=== PATIENT | female | born 1940 | race Caucasian/White ===

== ENCOUNTER → 2023-06-23 10:42 | Outpatient (REF) | payer OTHER, SELFPAY | LOC: PAVMRI 10:42 | PROVIDERS: ATTENDING PHYSICIAN Internal Medicine; FAMILY PHYSICIAN Internal Medicine | DX: D49.0 Neoplasm of unspecified behavior of digestive system (principal) | CPT/HCPCS: 74183; A9575 ==

== ENCOUNTER → 2023-08-12 11:29 | Outpatient (REF) | payer OTHER, SELFPAY ==
[2023-08-12 12:56] LABS: ALT (SGPT) 25 U/L (0-35); AST (SGOT) 24 U/L (14-36); Albumin 4.4 g/dl (3.5-5.0); Alkaline Phosphatase 55 U/L (38-126); Blood Urea Nitrogen 25 mg/dl (7-17); Calcium 9.8 mg/dl (8.4-10.2); Carbon Dioxide 39 mmol/L (22-30); Chloride 97 mmol/L (98-107); Glucose 88 mg/dl (70-99); Phosphorus 4.1 mg/dl (2.5-4.5); Potassium 3.8 mmol/L (3.5-5.1); Sodium 143 mmol/L (135-145); Total Bilirubin 0.6 mg/dl (0.2-1.3); Total Protein 7.3 g/dl (6.3-8.2); eGFR 55.21
[2023-08-12 13:12] LABS: Vitamin D, 25-OH*** 47.6 ng/mL (30-80)
== END ==
LOC: REG 11:29
PROVIDERS: ATTENDING PHYSICIAN Internal Medicine Rheumatology; FAMILY PHYSICIAN Internal Medicine
DX: M81.0 Age-related osteoporosis without current pathological fracture (principal); I10 Essential (primary) hypertension
CPT/HCPCS: 36415; 80053; 82306; 84100

== ENCOUNTER → 2023-09-10 10:23 | Outpatient (REF) | payer OTHER, SELFPAY | LOC: RAD 10:23 | PROVIDERS: ATTENDING PHYSICIAN Internal Medicine Rheumatology; FAMILY PHYSICIAN Internal Medicine | DX: M81.0 Age-related osteoporosis without current pathological fracture (principal) | CPT/HCPCS: 77080 ==

== ENCOUNTER → 2023-09-15 15:30 | Outpatient (REF) | payer OTHER, SELFPAY | LOC: RAD 15:30 | PROVIDERS: ATTENDING PHYSICIAN Nurse Practitioner Adult Health; FAMILY PHYSICIAN Internal Medicine | DX: N95.0 Postmenopausal bleeding (principal) | CPT/HCPCS: 76830; 76856 ==

== ENCOUNTER → 2024-03-03 14:35 | Outpatient (REF) | payer OTHER, SELFPAY ==
[2024-03-03 15:47] LABS: % Basophils 0.4 % (0-2); % Eosinophils 0.4 % (0-6); % Immature Granulocytes 0.4 % (0-0.5); % Lymphocytes 8.4 % (20.5-51.1); % Monocytes 5.5 % (1.7-9.3); % Neutrophils 84.9 % (42.2-75.2); Absolute Eosinophils 0.1 10^3/uL (0-0.7); Absolute Immature Granulocytes 0.1 10^3/uL (0-0.05); Absolute Lymphocytes 0.9 10^3/uL (1.2-3.4); Absolute Monocytes 0.6 10^3/uL (0.1-0.6); Absolute Neutrophils 9.5 10^3/uL (1.4-6.5); Hematocrit 41.7 % (37.0-47.0); Hemoglobin 13.6 g/dL (12.0-16.0); Mean Corp Hgb Conc. 32.6 g/dL (33.0-37.0); Mean Corpuscular Hgb 34.7 pg (27.0-31.0); Mean Corpuscular Volume 106.4 fL (81.0-99.0); Mean Platelet Volume 10.5 fL (7.4-10.4); Nucleated Red Blood Cells % 0 %; Platelet Count 259 10^3/uL (130-400); Red Blood Cell Count 3.92 10^6/uL (4.20-5.40); Red Cell Dist. Width 13.7 % (11.5-14.5); White Blood Cell Count 11.2 10^3/uL (4.8-10.8)
[2024-03-03 16:13] LABS: ALT (SGPT) 26 U/L (0-35); AST (SGOT) 27 U/L (14-36); Albumin 4.6 g/dl (3.5-5.0); Alkaline Phosphatase 57 U/L (38-126); Blood Urea Nitrogen 23 mg/dl (7-17); Calcium 10.1 mg/dl (8.4-10.2); Carbon Dioxide 38 mmol/L (22-30); Chloride 94 mmol/L (98-107); Glucose 103 mg/dl (70-99); Potassium 4.3 mmol/L (3.5-5.1); Sodium 140 mmol/L (135-145); Total Bilirubin 0.5 mg/dl (0.2-1.3); Total Protein 7.2 g/dl (6.3-8.2); eGFR > 60.00
[2024-03-03 16:28] LABS: Erythrocyte Sed Rate 15 mm/hour (0-20)
[2024-03-03 16:43] LABS: TSH 1.62 uIU/ml (0.47-4.68); TSH Reflex To Free T4 1.62 uIU/ml (0.47-4.68)
== END ==
LOC: REG 14:35
PROVIDERS: ATTENDING PHYSICIAN Internal Medicine
DX: K52.839 Microscopic colitis, unspecified (principal); R19.7 Diarrhea, unspecified
CPT/HCPCS: 36415; 80053; 84443; 85025; 85652; 86140

== ENCOUNTER → 2024-03-04 13:44 | Outpatient (REF) | payer OTHER, SELFPAY | LOC: WDC 13:44 | PROVIDERS: ATTENDING PHYSICIAN Internal Medicine | DX: Z12.31 Encounter for screening mammogram for malignant neoplasm of breast (principal) | CPT/HCPCS: 77063; 77067 ==

== ENCOUNTER → 2024-05-09 12:36 | Outpatient (REF) | payer OTHER, SELFPAY | LOC: RAD 12:36 | PROVIDERS: ATTENDING PHYSICIAN Surgery Vascular Surgery; FAMILY PHYSICIAN Internal Medicine | DX: I73.9 Peripheral vascular disease, unspecified (principal) | CPT/HCPCS: 93922; 93925 ==

== ENCOUNTER → 2024-05-24 15:16 | Outpatient (REF) | payer OTHER, SELFPAY ==
[2024-05-24 23:19] LABS: IgA 149 mg/dl (70-400)
[2024-05-27 06:53] LABS: tTG IgA Antibody 1.06 FLU (0.00-4.99)
== END ==
LOC: REG 15:16
PROVIDERS: ATTENDING PHYSICIAN Nurse Practitioner; FAMILY PHYSICIAN Internal Medicine
DX: R19.7 Diarrhea, unspecified (principal); K90.0 Celiac disease
CPT/HCPCS: 36415; 82653; 82784; 83516; 83993; 86231

== ENCOUNTER → 2024-06-02 14:30 | Outpatient (REF) | payer OTHER, SELFPAY | LOC: RAD 14:30 | PROVIDERS: ATTENDING PHYSICIAN Nurse Practitioner; FAMILY PHYSICIAN Internal Medicine | DX: R10.13 Epigastric pain (principal) | CPT/HCPCS: 76700 ==

== ENCOUNTER → 2024-06-20 15:03 | Outpatient (REF) | payer OTHER, SELFPAY ==
[2024-06-20 15:59] LABS: Albumin 4.1 g/dl (3.5-5.0); Blood Urea Nitrogen 27 mg/dl (7-17); Calcium 9.5 mg/dl (8.4-10.2); Carbon Dioxide 34 mmol/L (22-30); Chloride 97 mmol/L (98-107); Glucose 98 mg/dl (70-99); Phosphorus 4.3 mg/dl (2.5-4.5); Potassium 4.6 mmol/L (3.5-5.1); Sodium 139 mmol/L (135-145)
[2024-06-20 16:08] LABS: NT-proBNP 1610 pg/ml
== END ==
LOC: REG 15:03
PROVIDERS: ATTENDING PHYSICIAN Internal Medicine
DX: I50.9 Heart failure, unspecified (principal); R60.9 Edema, unspecified
CPT/HCPCS: 36415; 80069; 83880

== ENCOUNTER 2024-07-09 09:03 | Inpatient (IN) | payer OTHER, SELFPAY ==
[2024-07-08] VITALS (13 sets, daily range): BP systolic 101–159; BP diastolic 52–89; BMI 21.0; BMI 20.9
[2024-07-08] MEDS: CARDIZEM 10 MG IV (07:29)
--- NOTE | 2024-07-08 07:32 | ED.GENMED ---
History of Present Illness
General
Chief Complaint: Heart Rate Problem
Source: patient
Exam Limitations: none
Time Seen by Provider: 07/08/24 07:23
History of Present Illness
History of Present Illness:
See MDM
Past History
Past History
ED Past Medical History: Arrthythmia (Atrial fibrillation), CHF, HTN, Psychiatric (Anxiety) and Other (Collagenous colitis, constipation, osteopenia)
ED Past Surgical History: Cardiac (Cardioversion), Gynecological (D and C), Orthopedic (Bilateral carpal tunnel) and Tonsilectomy
Social History
Tobacco: Non-smoker
Alcohol: None
Personal:
Living: with family
Family History
Family History: Other (Noncontributory)
Phy Exam
Physical Exam
Physical Exam:
See MDM
Course
Orders/Labs/Results
Orders:
Orders
07/08/24
Electrocardiogram (*1) Stat
Reason for Study: Chest Pain
Comment: DONE NO ORDER ENTERED
07/08/24 07:06
EKG [Electrocardiogram (*1)] Urgent
Reason for Study: Atrial Fibrillation
07/08/24 07:07
EKG- Treatment ONCE
07/08/24 07:27
Diltiazem HCl [Cardizem] 10 mg IV NOW STA
07/08/24 07:28
Diltiazem HCl [Cardizem] 25 mg .ROUTE .STK-MED ONE
07/08/24 07:33
Complete Blood Count/With Diff Urgent
07/08/24 07:55
Comprehensive Metabolic Panel Urgent
Comprehensive Metabolic Panel Urgent
Magnesium Urgent
07/08/24 09:28
Potassium Chloride [KCl] 40 meq 0.9% Sodium Chloride 250 ml [Nss] 250 ml IV NOW
Abnormal Lab Results
07/08/24 07/08/24
07:33 07:55
MCV 101.3 H fL
(81.0-99.0)
MCH 33.9 H pg
(27.0-31.0)
Absolute Monos (auto) 0.8 H 10^3/uL
(0.1-0.6)
Lymphocytes % 19.1 L %
(20.5-51.1)
Potassium 2.4 L* mmol/L
(3.5-5.1)
Chloride 90 L mmol/L
(98-107)
Carbon Dioxide 38 H mmol/L
(22-30)
BUN 39 H mg/dl
(7-17)
Creatinine 1.3 H mg/dL
(0.6-1.0)
Glucose 134 H mg/dl
(70-99)
Calcium 10.7 H mg/dl
(8.4-10.2)
07/08/24 07:33
07/08/24 07:55
Vital Signs
Initial and Last Documented VS:
Initial Vital Signs
Pulse Resp BP
77 10 125/76
07/08/24 07:06 07/08/24 07:06 07/08/24 07:06
Last Documented Vital Signs
Pulse Resp BP Pulse Ox
60 10 125/76 93
07/08/24 08:00 07/08/24 07:06 07/08/24 07:10 07/08/24 08:00
MDM/Problems Addressed
Differential Diagnosis Includes:
HPI and MDM Narrative:
84-year-old female presenting for evaluation of intermittent palpitations. She does have a history of A-fib. Patient states that she intermittently goes into rapid A-fib. She states it has not been this uncontrolled in quite a while. She does
follow with cardiology, Dr. Barron. Patient states she started a new medicine 2 days ago that starts with an M but cannot remember what it is. She is already on metoprolol.
I was called to bedside because patient goes in between rapid A-fib.
Went into the room, patient is sitting in bed comfortably. She is sinus on the monitor but intermittently goes into A-fib. Will give dose of Cardizem and obtain basic blood work
Physical exam
General: Well appearing and non-toxic
HEENT: protecting airway
Neck: appears supple
CV: No evidence of cyanosis. Regular rate and rhythm
Resp: No accessory muscle use
Abd: Non-distended
Extremities: No deformities
Neuro: alert
Psych: Normal affect
Skin: Intact
Problems Addressed including Acute and Chronic Conditions affecting care:
1. Intermittent A-fib
Acuity: acute
Prognosis: stable
Details: Will give dose of Cardizem and continue to monitor
2. Hypokalemia
Acuity: acute
Prognosis: unstable
Details: Will replete with KCl rider
Updates
Symptoms improving with Cardizem but patient still complaining of weakness and fatigue. Given the hypokalemia despite being on potassium supplementation, will start IV potassium and admit
Differential Diagnosis (but not limited to): A-fib, electrolyte abnormality
Testing considered: Troponin but she denies chest pain
Drug therapy (if applicable): OTC meds, please see d/c instruction regarding Rx drugs
Amount and/or Complexity of Data Reviewed
Clinical info obtained from: Patient
External data reviewed: N/A
Labs I independently reviewed (but not limited to): Hypokalemia
Radiology: N/A
Pulse Ox: not hypoxic
EKG independently reviewed: Sinus rhythm, normal axis, no STEMI
Instrumental Music Teacher: Sinus rhythm
Critical Care: The high probability of a clinically significant, sudden or life threatening deterioration of the cardiovascular system(s) required my full and direct attention, intervention and personal management. The aggregate critical care time
was 33 minutes. This time is in addition to time spent performing reported procedures but includes the following:
[x] Data Review and interpretation
[x] Patient assessment and monitoring of vital signs
[x] Documentation
[x] Medication orders and management
Risk of Complication:
Social Determinants of health: Good social support
Discussed with other providers: Hospitalist
Escalation of Care includes Admit/Obs: After being observed in the Emergency Department, pt stable for discharge.
Occasional wrong word or 'sound a like' substitutions may have occurred due to the inherent limitations of voice recognition software. Read the chart carefully and recognize, using context, where substitutions have occurred.
*Critical Care Note
Total Time (30-74mins, 75-104mins- exclusive of procedures): 33 min
ED Attending Note
-
Portions of this chart may have been created with voice recognition software.� Occasional wrong word or��sound alike� substitutions may have occurred due to the inherent limitations of voice recognition software.
Discharge Plan
Departure
Patient Disposition: Admit
Date of Disposition: 07/08/24
Time of Disposition: 09:34
Admit to: Telemetry
Presentation/result/management discussed w/ accepting MD/DO: Hospitalist
Discharge Problem:
Acute hypokalemia, Intermittent atrial fibrillation
Prescriptions:
No Action
mometasone 0.1 % cream
1 applic topical DAILYPRN PRN (Reason: on ear for fungus itching)
multivitamin with folic acid [Tab-A-Bertin] 1 TABLET tablet
1 tab PO DAILY
budesonide 3 MG capsule,delayed,extend.release
6 mg PO DAILY
calcium carbonate-vitamin D3 [Calcium 500 + D] 500 mg-5 mcg (200 unit) Tablet
1 tab PO BID Qty: 0
Eliquis 2.5 MG tablet
2.5 mg PO BID
docusate sodium 100 mg capsule
100 mg PO BID PRN (Reason: constipation)
furosemide 80 mg Tablet
80 mg PO BID
acetaminophen [Tylenol] 325 mg Tablet
650 mg PO BID
alprazolam 0.25 mg Tablet
0.25 mg PO HS PRN (Reason: sleep)
Patient Comments:
01/26/2023, patient filled this medication on 01/06/2023 for 30 tablets according to PDMP.
potassium chloride 10 mEq Capsule, Extended Release
20 meq PO BID
diphenoxylate-atropine [Lomotil] 2.5-0.025 mg Tablet
1 tab PO DAILY PRN (Reason: diarrhea)
Citrucel 500 mg Tablet
1,000 mg PO QPM
ipratropium bromide 42 mcg (0.06 %) [place],Non-Aerosol
2 spray INTRANASAL DAILY
Refresh Classic (PF) 1.4-0.6 % Dropperette
1 drp BOTH EYES BID
Prolia 60 mg/mL Syringe
60 mg SC [id number]
Patient Comments:
01/26/2023, patient states next dose is scheduled for 03/04/2023.
dofetilide 125 mcg Capsule
125 mcg PO Q12 Qty: 60 1RF
metoprolol succinate 50 mg Tablet Extended Release 24 Hr
50 mg PO BID 30 Days Qty: 60 0RF
cefdinir 300 mg capsule
300 mg PO Q12H Qty: 10 0RF
Referrals:
Fabio Hawkins MD [Family Provider] -
Interventions
Interventions:
*Risk Screen - Suicide Last Done: 07/08/24 07:14
*General Assessment Last Done: 07/08/24 07:14
*Neglect/Abuse Screening Last Done: 07/08/24 07:20
*ED- Fall Risk Assessment Last Done: 07/08/24 07:14
*ED COVID-19 Vaccine History Last Done: 07/08/24 07:14
ED- Cardiac Assessment Last Done: 07/08/24 07:25
Discharge Date and Time
Print Language: THAI
[2024-07-08 07:42] LABS: % Basophils 0.7 % (0-2); % Immature Granulocytes 0.2 % (0-0.5); % Lymphocytes 19.1 % (20.5-51.1); % Monocytes 9.2 % (1.7-9.3); % Neutrophils 69.8 % (42.2-75.2); Absolute Basophils 0.1 10^3/uL (0-0.2); Absolute Eosinophils 0.1 10^3/uL (0-0.7); Absolute Lymphocytes 1.6 10^3/uL (1.2-3.4); Absolute Monocytes 0.8 10^3/uL (0.1-0.6); Absolute Neutrophils 5.8 10^3/uL (1.4-6.5); Hematocrit 45.7 % (37.0-47.0); Hemoglobin 15.3 g/dL (12.0-16.0); Mean Corp Hgb Conc. 33.5 g/dL (33.0-37.0); Mean Corpuscular Hgb 33.9 pg (27.0-31.0); Mean Corpuscular Volume 101.3 fL (81.0-99.0); Mean Platelet Volume 10.3 fL (7.4-10.4); Nucleated Red Blood Cells % 0 %; Platelet Count 258 10^3/uL (130-400); Red Blood Cell Count 4.51 10^6/uL (4.20-5.40); Red Cell Dist. Width 12.9 % (11.5-14.5); White Blood Cell Count 8.2 10^3/uL (4.8-10.8)
[2024-07-08 08:50] LABS: ALT (SGPT) 19 U/L (0-35); AST (SGOT) 23 U/L (14-36); Albumin 4.6 g/dl (3.5-5.0); Alkaline Phosphatase 45 U/L (38-126); Blood Urea Nitrogen 39 mg/dl (7-17); Calcium 10.7 mg/dl (8.4-10.2); Carbon Dioxide 38 mmol/L (22-30); Chloride 90 mmol/L (98-107); Estimated Creatinine Clearance 25 ml/min; Glucose 134 mg/dl (70-99); Magnesium 1.8 mg/dl (1.6-2.3); Potassium 2.4 mmol/L (3.5-5.1); Sodium 139 mmol/L (135-145); Total Bilirubin 0.9 mg/dl (0.2-1.3); Total Protein 7.4 g/dl (6.3-8.2); eGFR 40.05
--- NOTE | 2024-07-08 10:40 | HPS.HSE ---
Family Physician
-
Family Physician: Fabio Hawkins
Chief Complaint
-
Feeling tired and fatigue
History of Present Illness
Patient is a pleasant 84 years old with history of paroxysmal A-fib, congestive heart failure, hypertension, osteoporosis who came to the ER today after being not feeling well for the last couple days.
Patient was having bilateral lower extremity edema and increased weight, normally she takes Lasix 80 mg twice daily at home, called her front of house manager and was prescribed additional metolazone, she had metolazone for 2 days and lower extremity edema
improved.
After that patient started feeling unwell and fatigued, denies any chest pain or shortness of breath, no abdominal pain, no nausea, no vomiting, no diarrhea or constipation.
Came to the ER found to have potassium level of 2.4 and patient was in A-fib, received Cardizem 10 mg IV and currently in sinus rhythm with rate controlled.
Patient currently have no symptoms and her symptoms upon presentation improved resolved.
Patient was kept overnight to replace potassium repeat lab in a.m.
Medical History
Past Medical History
Past Medical History: Reports Arrhythmia, CHF, HTN, Psychiatric and Other ( (Anxiety) (Collagenous colitis, constipation, osteopenia))
Past Surgical History: Reports Cardiac and Gynocological
Additional Past Surgical History:
Cardiac (Cardioversion), Gynecological (D and C), Orthopedic (Bilateral carpal tunnel) and Tonsilectomy
Social History
Tobacco: Non-smoker
Alcohol: None
Drug: None
Personal:
Living: With Family
Family History
Family History: Not pertinent
Allergies / Home Medications
Allergies reflects when Allergies were last updated in [facility].
Home Medications with original date entered in [facility]
Allergy/Medication List:
Allergies
Allergy/AdvReac Type Severity Reaction Status Date / Time
digoxin Allergy Unknown toxicity...hospital Verified 01/31/22 01:13
overnight
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
disease
Sulfa (Sulfonamide Allergy Tongue Verified 01/31/22 01:13
Antibiotics) Swelling
SHELLEY Inhibitors AdvReac COUGH Verified 01/31/22 01:13
Lolvpbx-RJO-OgG Reductase AdvReac ACHY Verified 01/31/22 01:13
Inhibitor MUSCLES
[Iyuctyv-Ulu-Paa Reductase
Inhibitor]
Home Medications (not updated)
mometasone 0.1 % topical cream 1 applic topical DAILYPRN PRN on ear for fungus itching 12/12/18
multivitamin with folic acid 400 mcg tablet (Tab-A-Bertin) 1 tab PO DAILY Supplement 12/12/18
budesonide 3 mg capsule,delayed,extended release 6 mg PO DAILY Gastrointestinal issue 05/28/21
calcium 500 mg (as carbonate)-vitamin D3 5 mcg (200 unit) tablet (Calcium 500 + D) 1 tab PO BID Supplement ##0 09/09/21
apixaban 2.5 mg tablet (Eliquis) 2.5 mg PO BID Blood clot prevention/tx 10/02/21
docusate sodium 100 mg capsule 100 mg PO BID PRN constipation 10/08/21
furosemide 80 mg tablet 80 mg PO BID Fluid Retention/Swelling 01/08/22
acetaminophen 325 mg tablet (Tylenol) 650 mg PO BID pain 01/13/22
alprazolam 0.25 mg tablet 0.25 mg PO HS PRN sleep 01/26/23
denosumab 60 mg/mL subcutaneous syringe (Prolia) 60 mg SC [id number] osteoporosis 01/26/23
diphenoxylate-atropine 2.5 mg-0.025 mg tablet (Lomotil) 1 tab PO DAILY PRN diarrhea 01/26/23
ipratropium bromide 42 mcg (0.06 %) nasal spray 2 spray intranasal DAILY Allergies 01/26/23
methylcellulose (laxative) 500 mg tablet (Citrucel) 1,000 mg PO QPM Constipation 01/26/23
polyvinyl alcohol-povidone (PF) 1.4 %-0.6 % eye drops in a dropperette (Refresh Classic (PF)) 1 drp BOTH EYES BID dry eyes 01/26/23
potassium chloride 10 mEq capsule,extended release 20 meq PO BID Electrolyte Repletion 01/26/23
dofetilide 125 mcg capsule 125 mcg PO Q12 #60 caps 01/29/23
cefdinir 300 mg capsule 300 mg PO Q12H #10 caps 01/30/23
metoprolol succinate 50 mg tablet,extended release 24 hr 50 mg PO BID 30 days #60 tabs 01/30/23
Review of Systems
-
A 12 point ROS was completed and negative except as noted: Yes
Constitutional: Reports Fatigue; Denies Fever, Weight Gain, Weight Loss or Sleep Disturbance
EENT: Denies Tearing, Sore Throat, Mouth Pain, Mouth Swelling or Runny Nose
Respiratory: Denies Cough, Hemoptysis or Trouble Breathing
Cardiac: Denies Chest Pain, Diaphoresis, Palpitations or Syncope
Abdomen/GI: Denies Abdominal Pain, Nausea, Vomiting, Diarrhea, Constipated, Bloody Stools or Black Stools
: Denies Dysuria, Frequency, Flank Pain, Incontinence, Difficulty Voiding, Urgency, Bleeding or Dark Urine
Musculoskeletal: Reports Edema; Denies Joint Pain, Joint Swelling, Muscle Pain or Muscle Stiffness
Skin: Denies Itching or Rash
Neurological: Denies Dizzy, Headache, Weakness or Numbness
Endocrine: Denies Polyuria, Polydipsia or Temp Intolerance
Hematologic/Lymphatic: Denies Bleeding, Swollen Glands or Bruising
Psych: Reports Calm; Denies Depression, Anxiety or Panic Disorder
Physical Exam
Vital Signs
Vital Signs
Pulse Resp BP Pulse Ox
60 10 125/76 93
07/08/24 08:00 07/08/24 07:06 07/08/24 07:10 07/08/24 08:00
Physical Exam
General: Well Developed, Well Nourished, No Apparent Distress, Comfortable and Good Appetite; No Pain, Chills or Sweats
HEENT: NormoCephalic, Moist mucous membranes, Atraumatic, Good Dentition, PERRLA, Nose Appears Normal and Ears Appear Normal
Respiratory: Clear
Cardiac: S1/S2 and Regular Rhythm
Breast: Deferred by me
GI: Soft, Non Tender, Non Distended and Normal Bowel Sounds
Genito-urinary: Deferred by me
Musculoskeletal: No Clubbing, No Cyanosis, No Edema and Other (Bilateral lower extremity discoloration)
Skin: Warm; No Rash, Jaundice, Ulcers, Lesions or Decubitus Ulcers
Neuro: Awake, Alert, Oriented, AO x 3, No Motor Deficits, Nonfocal/grossly intact and Cranial Nerves Intact
Hematologic/Lymphatic: No Lymphadenopathy
Psych: Calm
Laboratory Results
-
07/08/24 07:33
07/08/24 07:55
Laboratory Results
Total Bilirubin 0.9 mg/dl (0.2-1.3) 07/08/24 07:55
Total Bilirubin Cancelled 07/08/24 07:55
AST 23 U/L (14-36) 07/08/24 07:55
AST Cancelled 07/08/24 07:55
ALT 19 U/L (0-35) 07/08/24 07:55
ALT Cancelled 07/08/24 07:55
Alkaline Phosphatase 45 U/L (38-126) 07/08/24 07:55
Alkaline Phosphatase Cancelled 07/08/24 07:55
Data Reviewed
-
Diagnostic Radiology: Report Reviewed by me
CT Scan: Report Reviewed by me
Medical Tests (Nuc Med, Echo, EKG etc): Report Reviewed by me
Lab Data: Labs Reviewed by me
Old Records: Reviewed
Impression/Plan
-
IMPRESSION:
Patient is a pleasant 84 years old with history of paroxysmal A-fib, congestive heart failure, hypertension, osteoporosis who came to the ER today after being not feeling well for the last couple days.
Patient was having bilateral lower extremity edema and increased weight, normally she takes Lasix 80 mg twice daily at home, called her front of house manager and was prescribed additional metolazone, she had metolazone for 2 days and lower extremity edema
improved.
In the ER she was found to be in A-fib which converted back to sinus rhythm after Cardizem 10 mg IV.
Also found to have potassium level of 2.4.
Assessment/plan:
Acute hypokalemia
Possible secondary to diuretic
Patient used to be on Lasix 80 mg twice daily at home.
In addition was prescribed metolazone for lower extremity
Lower extremity edema improved.
Replace potassium with IV.
Continue oral dose starting tomorrow
Monitor labs in a.m.
Paroxysmal A-fib.
Currently sinus rhythm.
Continue with metoprolol/Eliquis/dofetilide
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
Anxiety.
Continue Xanax.
PDMP verified
Chronic diastolic CHF.
No sign of acute exacerbation.
Patient had acute exacerbation prior to hospitalization and treated with additional diuretic.
Currently no lower extremity edema with clear lung exam.
Continue home dose of Lasix
CODE STATUS: Full code
DVT prophylaxis: Eliquis
Diet: Cardiac/gluten free.
Family communication: Discussed with at bedside.
Disposition: Potassium, repeat labs in a.m. possible discharge tomorrow.
Total time spent on today's encounter was 75 minutes which included time spent in counseling the patient/family regarding diagnosis and treatment plan as listed above, goals of care, and symptom management. Case was discussed with nursing staff,
specialists, and care coordinators/case management. All labs and imaging personally reviewed by me. Remainder the time spent in detailed review of previous records, lab data, imaging, and other medical provider documentation.
[2024-07-08] MEDS: KCL 270 MEQ IV (10:56)
[2024-07-08] MEDS: FLUSH (NSS) 1 FLUSH IV (10:56)
[2024-07-08] MEDS: TIKOSYN 125 MCG PO ×2 (12:31→20:03)
[2024-07-08] MEDS: ELIQUIS 2.5 MG PO ×2 (12:31→20:04)
[2024-07-08] MEDS: KCL 10 MEQ PO ×3 (12:31→21:31)
[2024-07-08] MEDS: ENTOCORT EC 6 MG PO (13:58)
--- NOTE | 2024-07-08 14:43 | PTCARENOTE ---
Pt was received from ED at 1215. pt ambulated to the room with supervision. Steady gait. VSS. IV KCL infusing on arrival, started in ED. Care plan reviewed with pt. Resting in bed comfortably.
[2024-07-08] MEDS: TYLENOL 650 MG PO (18:22)
[2024-07-08] MEDS: LASIX 80 MG PO (20:03)
[2024-07-08] MEDS: TOPROL XL 50 MG PO (20:04)
[2024-07-08 22:03] LABS: Urine Albumin Negative (Neg - Trace); Urine Bilirubin Negative (Negative); Urine Character Slightly Cloudy (Clear); Urine Color Yellow; Urine Glucose Negative (Negative); Urine Ketone Negative (Negative); Urine Leukocyte 3+ (Negative); Urine Nitrite Negative (Negative); Urine Occult Blood 2+ (Negative); Urine Urobilinogen Negative (Neg - 1+); Urine pH 6.5 (5.0-9.0)
[2024-07-08 22:14] LABS: Urine Bacteria Many (Negative); Urine Red Blood Cell 0-2 /HPF (0-2); Urine White Cell >100 /HPF (0-5)
[2024-07-08] MEDS: XANAX 0.25 MG PO (23:14)
[2024-07-09] VITALS (8 sets, daily range): BP systolic 105–200; BP diastolic 59–90; BMI 20.5
[2024-07-09] MEDS: APRESOLINE 5 MG IV (03:55)
[2024-07-09] MEDS: TYLENOL 650 MG PO ×3 (04:43→20:08)
[2024-07-09] MEDS: ZOFRAN 4 MG IV (07:16)
[2024-07-09 08:27] LABS: NT-proBNP 1430 pg/ml
[2024-07-09 08:31] LABS: Hematocrit 45.1 % (37.0-47.0); Hemoglobin 15.6 g/dL (12.0-16.0); Mean Corp Hgb Conc. 34.6 g/dL (33.0-37.0); Mean Corpuscular Hgb 35.1 pg (27.0-31.0); Mean Corpuscular Volume 101.6 fL (81.0-99.0); Mean Platelet Volume 10.7 fL (7.4-10.4); Platelet Count 265 10^3/uL (130-400); Red Blood Cell Count 4.44 10^6/uL (4.20-5.40); Red Cell Dist. Width 12.9 % (11.5-14.5); White Blood Cell Count 14.6 10^3/uL (4.8-10.8)
[2024-07-09 08:46] LABS: Blood Urea Nitrogen 40 mg/dl (7-17); Calcium 10.4 mg/dl (8.4-10.2); Carbon Dioxide 38 mmol/L (22-30); Chloride 86 mmol/L (98-107); Estimated Creatinine Clearance 29 ml/min; Glucose 122 mg/dl (70-99); Magnesium 1.7 mg/dl (1.6-2.3); Potassium 2.7 mmol/L (3.5-5.1); Sodium 139 mmol/L (135-145); eGFR 48.94
[2024-07-09] MEDS: ENTOCORT EC 6 MG PO (08:54)
[2024-07-09] MEDS: LASIX 80 MG PO ×2 (08:54→19:55)
[2024-07-09] MEDS: TIKOSYN 125 MCG PO ×2 (08:55→19:55)
[2024-07-09] MEDS: TOPROL XL 50 MG PO ×2 (08:55→19:55)
[2024-07-09] MEDS: ELIQUIS 2.5 MG PO ×2 (08:55→19:55)
[2024-07-09] MEDS: KCL 10 MEQ PO ×4 (08:55→21:14)
[2024-07-09] MEDS: KCL 270 MEQ IV (09:45)
[2024-07-09] MEDS: STERILE WATER FOR INJECTION 10 ML IV (11:04)
[2024-07-09] MEDS: ROCEPHIN 1000 MG IV (11:04)
--- NOTE | 2024-07-09 12:30 | W.PN.HOSP.TC ---
Today's Communication/Plan
-
Continue to replace potassium
started Rocephin, pending urine culture
Assessment / Plan
Assessment / Plan
Impression:
Patient is a pleasant 84 years old with history of paroxysmal A-fib, congestive heart failure, hypertension, osteoporosis who came to the ER today after being not feeling well for the last couple days.
Patient was having bilateral lower extremity edema and increased weight, normally she takes Lasix 80 mg twice daily at home, called her health diagnostics teacher and was prescribed additional metolazone, she had metolazone for 2 days and lower extremity edema
improved.
In the ER she was found to be in A-fib which converted back to sinus rhythm after Cardizem 10 mg IV.
Also found to have potassium level of 2.4.
Admitted to the hospital, replaced potassium, repeat potassium next morning 2.7.
Patient upgraded to inpatient.
Also noted to have UTI, started on Rocephin
Assessment/plan:
Acute hypokalemia
Possible secondary to diuretic
Patient used to be on Lasix 80 mg twice daily at home.
In addition was prescribed metolazone for lower extremity
Lower extremity edema improved.
Initial potassium level 2.4. Replaced potassium with IV.
Today potassium level is 2.7, will continue with IV replacement and addition of oral potassium as per home dose.
Continue potline monitor.
UTI
Start Rocephin.
Patient was having some dysuria.
Pending urine culture
Leukocytosis.
Possible secondary to UTI
Paroxysmal A-fib.
Currently sinus rhythm.
Continue with metoprolol/Eliquis/dofetilide
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
Anxiety.
Continue Xanax.
PDMP verified
Chronic diastolic CHF.
No sign of acute exacerbation.
Patient had acute exacerbation prior to hospitalization and treated with additional diuretic.
Currently no lower extremity edema with clear lung exam.
Continue home dose of Lasix
CODE STATUS: Full code
DVT prophylaxis: Eliquis
Diet: Cardiac/gluten free.
Family communication: Discussed with at bedside.
Disposition: Continue to replace potassium, started Rocephin, pending urine culture
Total time spent on today's encounter was 65 minutes which included time spent in counseling the patient/family regarding diagnosis and treatment plan as listed above, goals of care, and symptom management. Case was discussed with nursing staff,
specialists, and care coordinators/case management. All labs and imaging personally reviewed by me. Remainder the time spent in detailed review of previous records, lab data, imaging, and other medical provider documentation.
Anticipated Discharge: Within 24 hours
Subjective/Interval History
-
Date of Service: July 09, 2024
Patient seen and examined at bedside, blood pressure was elevated last night, currently improved.
Patient also was having nausea, treated with Zofran.
Denies any chest pain or shortness of breath, no abdominal pain.
Objective Data
-
Labs:
Laboratory Results
07/09/24
07:20
WBC 14.6 H
Hgb 15.6
Hct 45.1
Plt Count 265
Sodium 139
Potassium 2.7 L*
Chloride 86 L
Carbon Dioxide 38 H
BUN 40 H
Creatinine 1.1 H
Glucose 122 H
Calcium 10.4 H
Vital Signs:
Vital Signs
Temp Pulse Resp BP Pulse Ox
97.7 F 73 18 132/70 92
07/09/24 11:30 07/09/24 11:30 07/09/24 11:30 07/09/24 11:30 07/09/24 11:30
I&O
07/08/24 07/09/24 07/10/24
06:59 06:59 06:59
Intake Total 480 / 480
Output Total 50 / 50
Balance 430 / 430
Physical Exam
-
General: Well Developed, Well Nourished, No Apparent Distress and Comfortable
HEENT: Normocephalic, Atraumatic, Moist Mucous Membranes, No Ptosis, PERRLA and Nose Appears Normal
Respiratory: Clear to Auscultation and Non Labored Respirations
Cardiac: Regular Rhythm and S1/S2
Breast: Deferred by me
GI: Soft, Nontender, Nondistended and Normal Bowel Sounds
Genito-urinary: No Costovertebral Tender
Musculoskeletal: No Clubbing, No Cyanosis, No Edema and Other (Bilateral lower extremity discoloration)
Skin: Warm
Neuro: Awake, Alert, Oriented, AO x 3 and No Motor Deficits
Psych: Calm
Data Reviewed
-
Diagnostic Radiology: Image personally visualized and interpreted and Report Reviewed by me
CT Scan: Image personally visualized and interpreted and Report Reviewed by me
Ultrasound: Image personally visualized and interpreted and Report Reviewed by me
MRI: Image personally visualized and interpreted and Report Reviewed by me
Medical Tests (Nuc Med, Echo etc): Image personally visualized and interpreted and Report Reviewed by me
Labs: Labs Reviewed by me
Old Records: Reviewed
[2024-07-09] MEDS: COLACE 100 MG PO (14:46)
[2024-07-09] MEDS: TUMS CHEWABLE TABLET 200 MG PO ×2 (17:12→22:29)
[2024-07-09] MEDS: XANAX 0.25 MG PO (22:28)
[2024-07-10 03:32] VITALS: BP 149/87
[2024-07-10 06:00] VITALS: BMI 20.4
[2024-07-10 06:51] LABS: Hematocrit 42.8 % (37.0-47.0); Hemoglobin 14.4 g/dL (12.0-16.0); Mean Corp Hgb Conc. 33.6 g/dL (33.0-37.0); Mean Corpuscular Hgb 34.1 pg (27.0-31.0); Mean Corpuscular Volume 101.4 fL (81.0-99.0); Mean Platelet Volume 10.3 fL (7.4-10.4); Platelet Count 228 10^3/uL (130-400); Red Blood Cell Count 4.22 10^6/uL (4.20-5.40); Red Cell Dist. Width 12.9 % (11.5-14.5); White Blood Cell Count 9.6 10^3/uL (4.8-10.8)
[2024-07-10 07:10] LABS: Blood Urea Nitrogen 37 mg/dl (7-17); Calcium 10.4 mg/dl (8.4-10.2); Chloride 91 mmol/L (98-107); Estimated Creatinine Clearance 29 ml/min; Glucose 115 mg/dl (70-99); Magnesium 1.7 mg/dl (1.6-2.3); Potassium 3.2 mmol/L (3.5-5.1); Sodium 140 mmol/L (135-145); eGFR 48.94
--- NOTE | 2024-07-10 07:19 | W.PN.HOSP.TC ---
Today's Communication/Plan
-
Continue antibiotics
Significant hypokalemia continues -- ordered both IV and PO potassium
Continue to monitor on telemetry
Assessment / Plan
Assessment / Plan
Physical Exam
General: Well Developed, Well Nourished, No Apparent Distress and Comfortable
HEENT: Normocephalic, Atraumatic
Respiratory: Clear to Auscultation Bilaterally
Cardiac: Regular Rhythm and S1/S2
GI: Soft, Nontender, Nondistended and Normal Bowel Sounds
Musculoskeletal: No Cyanosis. No Edema and Other (Bilateral lower extremity discoloration)
Skin: Warm. Dry.
Neuro: Awake, Alert, Oriented, AO x 3 and No Motor Deficits
Psych: Calm
Impression:
Patient is a pleasant 84 years old with history of paroxysmal A-fib, congestive heart failure, hypertension, osteoporosis who came to the ER not feeling well for a couple of days.
Patient was having bilateral lower extremity edema and increased weight, normally she takes Lasix 80 mg twice daily at home, called her engraver tire mold and was prescribed additional metolazone, she had metolazone for 2 days and lower extremity edema
improved.
In the ER she was found to be in A-fib which converted back to sinus rhythm after Cardizem 10 mg IV.
Also found to have potassium level of 2.4.
Admitted to the hospital, replaced potassium, repeat potassium next morning 2.7.
Patient upgraded to inpatient.
Also noted to have UTI, started on Rocephin
Assessment/plan:
Acute hypokalemia
Possible secondary to diuretic
Patient used to be on Lasix 80 mg twice daily at home.
In addition was prescribed metolazone for lower extremity
Lower extremity edema improved.
Initial potassium level 2.4. Replaced potassium with IV and PO.
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
UTI
Continue Rocephin.
Patient was having some dysuria.
Pending urine culture -- so far growing E. coli, await sensitivities
Leukocytosis - RESOLVED
Possible secondary to UTI
Paroxysmal A-fib.
Currently sinus rhythm.
Continue with Metoprolol/Eliquis/Dofetilide
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
Anxiety.
Continue Xanax.
PDMP verified
Chronic diastolic CHF.
No sign of acute exacerbation.
Patient had acute exacerbation prior to hospitalization and treated with additional diuretic.
Currently no lower extremity edema with clear lung exam.
Continue home dose of Lasix
CODE STATUS: Full code
DVT prophylaxis: Eliquis
Diet: Cardiac/gluten free.
Disposition: Continue to replace potassium, continue Rocephin, pending urine culture
Anticipated Discharge: > 48 hours
Subjective/Interval History
-
Date of Service: July 10, 2024
Patient was seen and examined. She reported feeling okay, denied any chest pain/shortness of breath. Still is waiting to participate with physical therapy.
Objective Data
-
Labs:
Laboratory Results
07/10/24
06:28
WBC 9.6
Hgb 14.4
Hct 42.8
Plt Count 228
Sodium 140
Potassium 3.2 L
Chloride 91 L
Carbon Dioxide Pending
BUN 37 H
Creatinine 1.1 H
Glucose 115 H
Calcium 10.4 H
Vital Signs:
Vital Signs
Temp Pulse Resp BP Pulse Ox
97.4 F 66 16 149/87 92
07/10/24 03:32 07/10/24 03:32 07/10/24 03:32 07/10/24 03:32 07/10/24 03:32
I&O
07/09/24 07/10/24 07/11/24
06:59 06:59 06:59
Intake Total 480 / 480 480 / 480
Output Total 50 / 50 400 / 400
Balance 430 / 430 80 / 80
[2024-07-10 07:21] LABS: Carbon Dioxide 38 mmol/L (22-30)
[2024-07-10 07:25] VITALS: BP 123/62
[2024-07-10] MEDS: KCL 10 MEQ PO ×4 (09:09→22:36)
[2024-07-10] MEDS: TOPROL XL 50 MG PO ×2 (09:09→19:52)
[2024-07-10] MEDS: TIKOSYN 125 MCG PO ×2 (09:09→19:52)
[2024-07-10] MEDS: LASIX 80 MG PO ×2 (09:09→19:52)
[2024-07-10] MEDS: ELIQUIS 2.5 MG PO ×2 (09:09→19:52)
[2024-07-10] MEDS: KCL 20 MEQ PO (09:09)
[2024-07-10] MEDS: ENTOCORT EC 6 MG PO (09:10)
[2024-07-10] MEDS: ROCEPHIN 1000 MG IV (09:10)
[2024-07-10] MEDS: STERILE WATER FOR INJECTION 10 ML IV (09:11)
[2024-07-10 11:00] VITALS: BP 142/68
[2024-07-10 14:34] LABS: Blood Urea Nitrogen 39 mg/dl (7-17); Calcium 10.2 mg/dl (8.4-10.2); Chloride 88 mmol/L (98-107); Estimated Creatinine Clearance 29 ml/min; Glucose 141 mg/dl (70-99); Potassium 2.9 mmol/L (3.5-5.1); Sodium 136 mmol/L (135-145); eGFR 48.94
[2024-07-10 14:44] LABS: Carbon Dioxide 36 mmol/L (22-30)
[2024-07-10 15:09] VITALS: BP 140/71
[2024-07-10 19:00] VITALS: BP 143/82
[2024-07-10] MEDS: KCL 160 MEQ IV (19:52)
[2024-07-10] MEDS: KCL 40 MEQ PO (19:52)
[2024-07-10] MEDS: XANAX 0.25 MG PO (22:36)
[2024-07-10] MEDS: COLACE 100 MG PO (22:44)
[2024-07-11] VITALS (10 sets, daily range): BP systolic 129–172; BP diastolic 71–90; PULSE 71–76; O2SAT 95; BMI 20.7
[2024-07-11] MEDS: TUMS CHEWABLE TABLET 200 MG PO (03:27)
[2024-07-11 07:02] LABS: Hematocrit 45.5 % (37.0-47.0); Hemoglobin 15.6 g/dL (12.0-16.0); Mean Corp Hgb Conc. 34.3 g/dL (33.0-37.0); Mean Corpuscular Hgb 34.3 pg (27.0-31.0); Mean Platelet Volume 10.8 fL (7.4-10.4); Platelet Count 262 10^3/uL (130-400); Red Blood Cell Count 4.55 10^6/uL (4.20-5.40); Red Cell Dist. Width 12.8 % (11.5-14.5)
[2024-07-11 08:02] LABS: Blood Urea Nitrogen 42 mg/dl (7-17); Calcium 10.8 mg/dl (8.4-10.2); Carbon Dioxide 38 mmol/L (22-30); Chloride 91 mmol/L (98-107); Estimated Creatinine Clearance 32 ml/min; Glucose 131 mg/dl (70-99); Magnesium 1.4 mg/dl (1.6-2.3); Potassium 3.6 mmol/L (3.5-5.1); Sodium 138 mmol/L (135-145); eGFR 54.87
[2024-07-11] MEDS: LASIX 80 MG PO ×2 (09:15→20:55)
[2024-07-11] MEDS: KCL 40 MEQ PO (09:15)
[2024-07-11] MEDS: TIKOSYN 125 MCG PO ×2 (09:16→20:51)
[2024-07-11] MEDS: ROCEPHIN 1000 MG IV (09:16)
[2024-07-11] MEDS: ELIQUIS 2.5 MG PO ×2 (09:16→20:51)
[2024-07-11] MEDS: TOPROL XL 50 MG PO ×2 (09:16→20:51)
[2024-07-11] MEDS: KCL 10 MEQ PO ×4 (09:16→20:55)
[2024-07-11] MEDS: ENTOCORT EC 6 MG PO (09:16)
[2024-07-11] MEDS: MAGNESIUM SULFATE 50 IV (09:17)
[2024-07-11] MEDS: STERILE WATER FOR INJECTION 10 ML IV (09:17)
--- NOTE | 2024-07-11 14:37 | W.PN.HOSP.TC ---
Today's Communication/Plan
-
SNF placement
Continue antibiotics
Continue monitoring on telemetry given electrolyte imbalances and cardiac comorbidities
Assessment / Plan
Assessment / Plan
Physical Exam
General: Well Developed, Well Nourished, No Apparent Distress and Comfortable
HEENT: Normocephalic, Atraumatic
Respiratory: Clear to Auscultation Bilaterally
Cardiac: Regular Rhythm and S1/S2
GI: Soft, Nontender, Nondistended and Normal Bowel Sounds
Musculoskeletal: No Cyanosis. No Edema and Other (Bilateral lower extremity discoloration)
Skin: Warm. Dry.
Neuro: Awake, Alert, Oriented, AO x 3 and No Motor Deficits
Psych: Calm
Impression:
Patient is a pleasant 84 years old with history of paroxysmal A-fib, congestive heart failure, hypertension, osteoporosis who came to the ER not feeling well for a couple of days.
Patient was having bilateral lower extremity edema and increased weight, normally she takes Lasix 80 mg twice daily at home, called her post hole digger and was prescribed additional metolazone, she had metolazone for 2 days and lower extremity edema
improved.
In the ER she was found to be in A-fib which converted back to sinus rhythm after Cardizem 10 mg IV.
Also found to have potassium level of 2.4.
Admitted to the hospital, replaced potassium, repeat potassium next morning 2.7.
Patient upgraded to inpatient.
Also noted to have UTI, started on Rocephin
Assessment/plan:
Acute hypokalemia
Possible secondary to diuretic
Patient used to be on Lasix 80 mg twice daily at home.
In addition was recently prescribed Metolazone for lower extremity
Lower extremity edema improved.
Initial potassium level 2.4. Replaced potassium with IV and PO.
Continue hospital monitor.
E. Coli UTI
Transition Rocephin to Cefdinir
Patient was having some dysuria.
Leukocytosis - RESOLVED
Suspected secondary to UTI
Paroxysmal A-fib.
Currently sinus rhythm.
Continue with Metoprolol/Eliquis/Dofetilide
clinical research monitor.
Anxiety.
Continue Xanax.
PDMP verified
Chronic diastolic CHF.
No sign of acute exacerbation.
Patient had acute exacerbation prior to hospitalization and treated with additional diuretic.
Currently no lower extremity edema with clear lung exam.
Continue home dose of Lasix
CODE STATUS: Full code
DVT prophylaxis: Eliquis
Diet: Cardiac/gluten free.
Disposition: Continue to replace potassium, continue antibiotics
Anticipated Discharge: 24 - 48 hours
Subjective/Interval History
-
Date of Service: July 11, 2024
Patient was seen and examined. She reported feeling okay, denied any chest pain or SOB or dizziness.
Objective Data
-
Labs:
Laboratory Results
07/11/24
06:44
WBC 17.0 H
Hgb 15.6
Hct 45.5
Plt Count 262
Sodium 138
Potassium 3.6
Chloride 91 L
Carbon Dioxide 38 H
BUN 42 H
Creatinine 1.0
Glucose 131 H
Calcium 10.8 H
Vital Signs:
Vital Signs
Temp Pulse Resp BP Pulse Ox
98.2 F 72 18 133/72 95
07/11/24 11:00 07/11/24 11:00 07/11/24 11:00 07/11/24 11:00 07/11/24 11:00
I&O
07/10/24 07/11/24 07/12/24
06:59 06:59 06:59
Intake Total 480 / 480 700 / 700
Output Total 400 / 400 975 / 975
Balance 80 / 80 -275 / -275
[2024-07-11] MEDS: MIRALAX 17 GRAMS PO (15:16)
--- NOTE | 2024-07-11 17:23 | CM ---
Met with patient and her family to obtain information for assessment. Patient stated that she lives with her spouse who was at bedside in a one story single home with 4 steps to enter. Patient described herself as independent with all of her ADLs,
personal care, dressing and bathing. 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 She drives and can get to her appointments and does do the shopping. She reported that she has a cane, a raised toilet seat with rails, grab bars in her
shower and a commode.
Patient has a prescription plan and uses, [facility] in [place] for all of her medications.
Her PCP is, Fabio Hawkins.
Patient stated that she feels that she can return home. Spouse confirmed that he can support the scope of her needs. Daughter is supportive and lives close. She is agreeable to and would like .
Spoke with OT who stated that patient is safe to return home.
Plan: Case management will continue to follow and assist with discharge planning. Home with VN.
[2024-07-11] MEDS: XANAX 0.25 MG PO (22:49)
[2024-07-12 03:12] VITALS: BP 179/88
[2024-07-12 06:00] VITALS: BMI 20.6
[2024-07-12 07:14] LABS: Hematocrit 42.4 % (37.0-47.0); Hemoglobin 14.1 g/dL (12.0-16.0); Mean Corp Hgb Conc. 33.3 g/dL (33.0-37.0); Mean Corpuscular Hgb 33.7 pg (27.0-31.0); Mean Corpuscular Volume 101.4 fL (81.0-99.0); Mean Platelet Volume 10.6 fL (7.4-10.4); Platelet Count 219 10^3/uL (130-400); Red Blood Cell Count 4.18 10^6/uL (4.20-5.40); Red Cell Dist. Width 12.9 % (11.5-14.5); White Blood Cell Count 10.5 10^3/uL (4.8-10.8)
[2024-07-12 07:25] VITALS: BP 117/62
--- NOTE | 2024-07-12 07:48 | W.PN.HOSP.TC ---
Today's Communication/Plan
-
Increased Potassium
Supplement Magnesium
Placement Pending
Assessment / Plan
Assessment / Plan
Physical Exam
General: Well Developed, Well Nourished, No Apparent Distress and Comfortable
HEENT: Normocephalic, Atraumatic
Respiratory: Clear to Auscultation Bilaterally
Cardiac: Regular Rhythm and S1/S2
GI: Soft, Nontender, Nondistended and Normal Bowel Sounds
Musculoskeletal: No Cyanosis. No Edema and Other (Bilateral lower extremity discoloration)
Skin: Warm. Dry.
Neuro: Awake, Alert, Oriented, AO x 3 and No Motor Deficits
Psych: Calm
Impression:
Patient is a pleasant 84 years old with history of paroxysmal A-fib, congestive heart failure, hypertension, osteoporosis who came to the ER not feeling well for a couple of days.
Patient was having bilateral lower extremity edema and increased weight, normally she takes Lasix 80 mg twice daily at home, called her disabilities caregiver and was prescribed additional metolazone, she had metolazone for 2 days and lower extremity edema
improved.
In the ER she was found to be in A-fib which converted back to sinus rhythm after Cardizem 10 mg IV.
Also found to have potassium level of 2.4.
Admitted to the hospital, replaced potassium, repeat potassium next morning 2.7.
Patient upgraded to inpatient.
Also noted to have UTI, started on Rocephin
Assessment/plan:
Acute hypokalemia
Possible secondary to diuretic
Patient used to be on Lasix 80 mg twice daily at home.
In addition was recently prescribed Metolazone for lower extremity
Lower extremity edema improved.
Initial potassium level 2.4. Replaced potassium with IV and PO.
Increased scheduled potassium to 20 meq QID since patient's potassium keeps dropping
Continue belt splicer.
Hypomagnesemia
-Replaced
E. Coli UTI
Transitioned Rocephin to Cefdinir
Patient was having some dysuria.
Leukocytosis - RESOLVED
Suspected secondary to UTI
Paroxysmal A-fib.
Currently sinus rhythm.
Continue with Metoprolol/Eliquis/Dofetilide
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
Anxiety.
Continue Xanax.
PDMP verified
Chronic diastolic CHF.
No sign of acute exacerbation.
Patient had acute exacerbation prior to hospitalization and treated with additional diuretic.
Currently no lower extremity edema with clear lung exam.
Continue home dose of Lasix
CODE STATUS: Full code
DVT prophylaxis: Eliquis
Diet: Cardiac/gluten free.
Disposition: Continue to replace potassium, continue antibiotics
Anticipated Discharge: Within 24 hours
Subjective/Interval History
-
Date of Service: July 12, 2024
Patient was seen and examined. She was able to ambulate in the past 24 hours without any symptoms, she denied any dizziness, chest pain or shortness of breath.
Objective Data
-
Labs:
Laboratory Results
07/12/24
06:48
WBC 10.5
Hgb 14.1
Hct 42.4
Plt Count 219
Sodium Pending
Potassium Pending
Chloride Pending
Carbon Dioxide Pending
BUN Pending
Creatinine Pending
Glucose Pending
Calcium Pending
Vital Signs:
Vital Signs
Temp Pulse Resp BP Pulse Ox
97.5 F 66 16 179/88 97
07/12/24 03:12 07/12/24 03:12 07/12/24 03:12 07/12/24 03:12 07/12/24 03:12
I&O
07/11/24 07/12/24 07/13/24
06:59 06:59 06:59
Intake Total 700 / 700 500 / 500
Output Total 975 / 975 500 / 500
Balance -275 / -275 500 / 500 -500 / -500
[2024-07-12] MEDS: KCL 10 MEQ PO ×2 (09:03→12:16)
[2024-07-12] MEDS: MIRALAX 17 GRAMS PO (09:03)
[2024-07-12] MEDS: LASIX 80 MG PO ×2 (09:03→19:58)
[2024-07-12] MEDS: OMNICEF 300 MG PO (09:03)
[2024-07-12] MEDS: TIKOSYN 125 MCG PO ×2 (09:03→19:58)
[2024-07-12] MEDS: ELIQUIS 2.5 MG PO ×2 (09:04→19:58)
[2024-07-12] MEDS: ENTOCORT EC 6 MG PO (09:04)
[2024-07-12] MEDS: TOPROL XL 50 MG PO ×2 (09:04→19:57)
[2024-07-12 10:12] LABS: Blood Urea Nitrogen 36 mg/dl (7-17); Calcium 9.9 mg/dl (8.4-10.2); Chloride 88 mmol/L (98-107); Estimated Creatinine Clearance 32 ml/min; Glucose 100 mg/dl (70-99); Magnesium 1.8 mg/dl (1.6-2.3); Potassium 3.3 mmol/L (3.5-5.1); Sodium 137 mmol/L (135-145); eGFR 54.87
[2024-07-12 10:23] LABS: Carbon Dioxide 37 mmol/L (22-30)
[2024-07-12 11:34] VITALS: BP 120/65
[2024-07-12] MEDS: MAGNESIUM SULFATE 102 GRAMS IV (13:24)
[2024-07-12] MEDS: KCL 40 MEQ PO (13:25)
--- NOTE | 2024-07-12 14:14 | CM ---
Spoke with attending who stated that patient is medically cleared for discharge. Reviewed PT. Indication is for SNF. Spoke with patient's spouse who stated that he still feels that he can support patient at home. Patient was agreeable to meeting
with patient to discuss her thoughts. Patient stated that she feels that her needs are beyond what her spouse would be able to safely support at home and therefore requested that she be transferred to a SNF.
Patient requested that referrals be sent out to: [facility], [facility], and [facility]. Will send referrals. Will need authorization prior to transfer.
Attending and RN updated.
Plan: Case management will continue to follow and assist with discharge planning. SNF upon finding bed and auth.
--- NOTE | 2024-07-12 15:15 | PN.CDI ---
CDI
- -
CDI:
Physician Documentation Request
Admit Date: 07/09/24 09:03
Dear Doctor Eleno,
Please review the following and provide your response in the progress notes.
Clinical Indicators:
- 07/11 2 gram IV Magnesium sulfate given
- 07/12 1 gram IV Magnesium sulfate given
Laboratory Tests
07/08/24 07/11/24 07/12/24
07:55 06:44 08:29
Magnesium 1.8 1.4 L 1.8
Please provide a diagnosis for the above lab values that were monitored and treatment rendered:
Hypomagnesemia
Clinically insignificant abnormal lab value
Other (please specify)
Use of terms such as suspected, likely, concern for, or probable (associated with a specific diagnosis that is being evaluated, monitored, or treated as if it exists) are acceptable and can be coded in the inpatient setting, when documented at the
time of discharge.
Thank you,
Bo Chaudhari RN
CDI Specialist
Please use your independent medical judgment in providing your response.
[2024-07-12 15:39] VITALS: BP 122/64
[2024-07-12] MEDS: KCL 20 MEQ PO ×2 (17:19→19:59)
[2024-07-12 19:30] VITALS: BP 144/76
[2024-07-12] MEDS: XANAX 0.25 MG PO (19:58)
[2024-07-12 22:54] LABS: Potassium 4.6 mmol/L (3.5-5.1)
[2024-07-12 23:48] VITALS: BP 141/70
[2024-07-13 03:42] VITALS: BP 142/71
[2024-07-13 06:00] VITALS: BMI 20.7
[2024-07-13 07:42] LABS: Blood Urea Nitrogen 36 mg/dl (7-17); Calcium 9.3 mg/dl (8.4-10.2); Chloride 94 mmol/L (98-107); Estimated Creatinine Clearance 35 ml/min; Glucose 102 mg/dl (70-99); Potassium 4.2 mmol/L (3.5-5.1); Sodium 137 mmol/L (135-145); eGFR > 60.00
[2024-07-13 07:44] VITALS: BP 118/65
[2024-07-13 07:54] LABS: Carbon Dioxide 35 mmol/L (22-30)
[2024-07-13] MEDS: MIRALAX 17 GRAMS PO (09:03)
[2024-07-13] MEDS: LASIX 80 MG PO ×2 (09:03→20:22)
[2024-07-13] MEDS: ENTOCORT EC 6 MG PO (09:03)
[2024-07-13] MEDS: OMNICEF 300 MG PO (09:03)
[2024-07-13] MEDS: ELIQUIS 2.5 MG PO ×2 (09:03→20:21)
[2024-07-13] MEDS: TOPROL XL 50 MG PO ×2 (09:04→20:21)
[2024-07-13] MEDS: KCL 20 MEQ PO ×4 (09:04→22:08)
[2024-07-13] MEDS: TIKOSYN 125 MCG PO ×2 (09:04→20:22)
[2024-07-13 11:28] VITALS: BP 138/67
--- NOTE | 2024-07-13 14:06 | W.PN.HOSP.TC ---
Today's Communication/Plan
-
SNF/Acute Rehab placement pending
Assessment / Plan
Assessment / Plan
Physical Exam
General: Well Developed, Well Nourished, No Apparent Distress and Comfortable
HEENT: Normocephalic, Atraumatic
Respiratory: Clear to Auscultation Bilaterally
Cardiac: Regular Rhythm and S1/S2
GI: Soft, Nontender, Nondistended and Normal Bowel Sounds
Musculoskeletal: No Cyanosis. No Edema and Other (Bilateral lower extremity discoloration)
Skin: Warm. Dry.
Neuro: Awake, Alert, Oriented, AO x 3 and No Motor Deficits
Psych: Calm
Impression:
Patient is a pleasant 84 years old with history of paroxysmal A-fib, congestive heart failure, hypertension, osteoporosis who came to the ER not feeling well for a couple of days.
Patient was having bilateral lower extremity edema and increased weight, normally she takes Lasix 80 mg twice daily at home, called her it professional and was prescribed additional metolazone, she had metolazone for 2 days and lower extremity edema
improved.
In the ER she was found to be in A-fib which converted back to sinus rhythm after Cardizem 10 mg IV.
Also found to have potassium level of 2.4.
Admitted to the hospital, replaced potassium, repeat potassium next morning 2.7.
Patient upgraded to inpatient.
Also noted to have UTI, started on Rocephin
Assessment/plan:
Acute hypokalemia
Possible secondary to diuretic
Patient used to be on Lasix 80 mg twice daily at home.
In addition was recently prescribed Metolazone for lower extremity
Lower extremity edema improved.
Initial potassium level 2.4. Replaced potassium with IV and PO.
Increased scheduled potassium to 20 meq QID since patient's potassium kept dropping --> potassium is now well within normal range because of this
Continue clinical resource director.
Hypomagnesemia
-Replaced and resolved
E. Coli UTI
Transitioned Rocephin to Cefdinir
Patient was having some dysuria.
Leukocytosis - RESOLVED
Suspected secondary to UTI
Paroxysmal A-fib.
Currently sinus rhythm.
Continue with Metoprolol/Eliquis/Dofetilide
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
Anxiety.
Continue Xanax.
PDMP verified
Chronic diastolic CHF.
No sign of acute exacerbation.
Patient had acute exacerbation prior to hospitalization and treated with additional diuretic.
Currently no lower extremity edema with clear lung exam.
Continue home dose of Lasix
CODE STATUS: Full code
DVT prophylaxis: Eliquis
Diet: Cardiac/gluten free.
Disposition: Continue to replace potassium, continue antibiotics
Anticipated Discharge: Within 24 hours
Subjective/Interval History
-
Date of Service: July 13, 2024
Patient was seen and examined. She reported feeling fine, and denied any chest pain, shortness of breath or any other complaints.
Objective Data
-
Labs:
Laboratory Results
07/13/24
06:48
Sodium 137
Potassium 4.2
Chloride 94 L
Carbon Dioxide 35 H
BUN 36 H
Creatinine 0.9
Glucose 102 H
Calcium 9.3
Vital Signs:
Vital Signs
Temp Pulse Resp BP Pulse Ox
98.6 F 69 16 138/67 96
07/13/24 11:28 07/13/24 11:28 07/13/24 11:28 07/13/24 11:28 07/13/24 11:28
I&O
07/12/24 07/13/24 07/14/24
06:59 06:59 06:59
Intake Total 500 / 500 720 / 720
Output Total 750 / 750
Balance 500 / 500 -30 / -30
[2024-07-13 15:42] VITALS: BP 120/54
[2024-07-13 19:08] VITALS: BP 148/82
[2024-07-13] MEDS: XANAX 0.25 MG PO (22:57)
[2024-07-13 23:48] VITALS: BP 131/64
[2024-07-14 03:36] VITALS: BP 162/88
[2024-07-14 06:00] VITALS: BMI 21.0
[2024-07-14 07:48] LABS: Blood Urea Nitrogen 33 mg/dl (7-17); Calcium 9.1 mg/dl (8.4-10.2); Carbon Dioxide 34 mmol/L (22-30); Chloride 101 mmol/L (98-107); Estimated Creatinine Clearance 40 ml/min; Glucose 95 mg/dl (70-99); Magnesium 2.1 mg/dl (1.6-2.3); Potassium 4.5 mmol/L (3.5-5.1); Sodium 138 mmol/L (135-145); eGFR > 60.00
[2024-07-14 07:50] VITALS: BP 130/66
[2024-07-14] MEDS: LASIX 80 MG PO (09:16)
[2024-07-14] MEDS: TIKOSYN 125 MCG PO (09:19)
[2024-07-14] MEDS: ENTOCORT EC 6 MG PO (09:20)
[2024-07-14] MEDS: ELIQUIS 2.5 MG PO (09:20)
[2024-07-14] MEDS: TOPROL XL 50 MG PO (09:21)
[2024-07-14] MEDS: KCL 20 MEQ PO ×2 (09:21→13:45)
[2024-07-14] MEDS: OMNICEF 300 MG PO (09:22)
[2024-07-14] MEDS: MIRALAX PO (09:29)
[2024-07-14] MEDS: FLUSH (NSS) 1 FLUSH IV (09:34)
[2024-07-14 10:01] VITALS: BP 143/76; PULSE 67; O2SAT 98
[2024-07-14 10:09] VITALS: BP 143/74; PULSE 64; O2SAT 98
--- NOTE | 2024-07-14 10:27 | CM ---
Received determination from Leandro. Patient approved for SNF level of care 7 days skilled NRD 07/20. Review should be called into, Option 3. This information was provided by 'Reji Montanez' Placed a call to Altagracia in admissions at [facility]
Adam who took information and confirmed bed availability for today.
Spoke with patient and her spouse who are agreeable to transfer to SNF today. Patient's spouse stated that he will transport patient.
Attending updated.
Will update RN.
#for report [phone] and fax# [phone]
Plan: Case management will continue to follow and assist with discharge planning[facility].
[2024-07-14 11:25] VITALS: BP 123/64
--- NOTE | 2024-07-14 13:16 | W.PN.HOSP.TC ---
Today's Communication/Plan
-
Discharge today
Assessment / Plan
Assessment / Plan
Physical Exam
General: Well Developed, Well Nourished, No Apparent Distress and Comfortable
HEENT: Normocephalic, Atraumatic
Respiratory: Clear to Auscultation Bilaterally
Cardiac: Regular Rhythm and S1/S2
GI: Soft, Nontender, Nondistended and Normal Bowel Sounds
Musculoskeletal: No Cyanosis. No Edema and Other (Bilateral lower extremity discoloration)
Skin: Warm. Dry.
Neuro: Awake, Alert, Oriented, AO x 3 and No Motor Deficits
Psych: Calm
Impression:
Patient is a pleasant 84 years old with history of paroxysmal A-fib, congestive heart failure, hypertension, osteoporosis who came to the ER not feeling well for a couple of days.
Patient was having bilateral lower extremity edema and increased weight, normally she takes Lasix 80 mg twice daily at home, called her bioinformatics software engineer and was prescribed additional metolazone, she had metolazone for 2 days and lower extremity edema
improved.
In the ER she was found to be in A-fib which converted back to sinus rhythm after Cardizem 10 mg IV.
Also found to have potassium level of 2.4.
Admitted to the hospital, replaced potassium, repeat potassium next morning 2.7.
Patient upgraded to inpatient.
Also noted to have UTI, started on Rocephin
Assessment/plan:
Acute hypokalemia
Possible secondary to diuretic
Patient used to be on Lasix 80 mg twice daily at home.
In addition was recently prescribed Metolazone for lower extremity
Lower extremity edema improved.
Initial potassium level 2.4. Replaced potassium with IV and PO.
Increased scheduled potassium to 20 meq QID since patient's potassium kept dropping --> potassium is now well within normal range because of this
Recheck BMP by 07/16/[address] recording monitor.
Hypomagnesemia
-Replaced and resolved
E. Coli UTI
Transitioned Rocephin to Cefdinir --> continue for 1 more day
Patient was having some dysuria.
Leukocytosis - RESOLVED
Suspected secondary to UTI
Paroxysmal A-fib.
Currently sinus rhythm.
Continue with Metoprolol/Eliquis/Dofetilide
air sampling and monitoring.
Anxiety.
Continue Xanax.
PDMP verified
Chronic diastolic CHF.
No sign of acute exacerbation.
Patient had acute exacerbation prior to hospitalization and treated with additional diuretic.
Currently no lower extremity edema with clear lung exam.
Continue home dose of Lasix
CODE STATUS: Full code
DVT prophylaxis: Eliquis
Diet: Cardiac/gluten free.
Disposition: SNF
More than 30 minutes spent in discharge including
Final examination of the patient
Summarizing hospital stay
Instructions for continuing care to all relevant caregivers
Preparation of discharge records, prescriptions, and referral forms
Total time spent (in minutes): 37
Anticipated Discharge: Today
Subjective/Interval History
-
Date of Service: July 14, 2024
Patient was seen and examined. She reported feeling well, and denied any complaints or symptoms.
Objective Data
-
Labs:
Laboratory Results
07/14/24
07:01
Sodium 138
Potassium 4.5
Chloride 101
Carbon Dioxide 34 H
BUN 33 H
Creatinine 0.8
Glucose 95
Calcium 9.1
Vital Signs:
Vital Signs
Temp Pulse Resp BP Pulse Ox
97.4 F 67 16 130/66 98
07/14/24 07:50 07/14/24 07:50 07/14/24 07:50 07/14/24 07:50 07/14/24 07:50
I&O
07/13/24 07/14/24 07/15/24
06:59 06:59 06:59
Intake Total 720 / 720 900 / 900 480 / 480
Output Total 750 / 750 200 / 200
Balance -30 / -30 700 / 700 480 / 480
--- NOTE | 2024-07-14 14:45 | W.DCSUMMARY ---
Discharge Summary
Discharge Data
Date of Admission: 07/08/24
Date of Discharge: 07/14/24
Total time spent discharging patient (in min): 37
-
Pending Results: No
Hospital Course
84 year old female with past medical history of paroxysmal atrial fibrillation, congestive heart failure, hypertension, osteoporosis who came to the ER today after being not feeling well for the last couple days. Patient recently was having
bilateral lower extremity edema and associated weight gain; normally she takes Lasix 80 mg twice daily at home; she called her mix house operator and was prescribed Metolazone, which she took for 2 days. Her lower extremity edema subsequently improved.
But after that, patient started feeling unwell and fatigued, denied any chest pain or shortness of breath, abdominal pain, nausea, vomiting, diarrhea or constipation. When she came to the ER, she was found to have low potassium of 2.4 and patient
was in A-fib; she received Cardizem 10 mg IV and converted to sinus rhythm normal rate. Patient was started on antibiotics for urinary tract infection in the setting of her dysuria symptoms; urine culture grew E. coli. Patient's potassium was
replaced both intravenously and orally. Patient's potassium gradually improved with increasing doses of potassium. Her symptoms also resolved and she was doing very well on the day of discharge. She was stable for discharge to SNF.
Discharge Plan
-
Patient Disposition: Fpc/SNF
Discharge Diagnosis/Procedures: Osteoporosis
Acute hypokalemia -- suspected secondary to diuresis
Recent lower extremity edema -- resolved with Metolazone
Hypomagnesemia
Hypertension
E. Coli UTI
Leukocytosis - RESOLVED
Paroxysmal Atrial fibrillation
Anxiety
HFpEF
Condition: Good
Diet: Low Fat, Low Cholesterol, Low Sodium, 2 Gram Sodium and Restrict fluids to 64 oz
Blood Work: Check BMP and Magnesium by 07/16/24
Specialty Instructions: Weigh Daily- Call MD for wt gain/loss 3 lbs overnight/5 lbs in 1 week
Activity Restrictions/Additional Instructions:
Patient needs to have her BMP checked in 2 days from today (today is 07/14/24) and her potassium medication may need to be adjusted (either increased or decreased) depending on the result -- this is very important.
Referrals:
Fabio Hawkins MD [Family Provider] - in less than 1 week
Prescriptions:
New
polyethylene glycol 3350 17 gram Powder In Packet
17 g PO DAILY Qty: 100 0RF
cefdinir 300 mg Capsule
300 mg PO Q12H 1 Days Qty: 2 0RF
potassium chloride 20 mEq Tablet,Er Particles/Crystals
20 meq PO QID Qty: 14 0RF
Continued
mometasone 0.1 % cream
1 applic topical DAILYPRN PRN (Reason: on ear for fungus itching)
multivitamin with folic acid [Tab-A-Bertin] 1 TABLET tablet
1 tab PO DAILY
budesonide 3 MG capsule,delayed,extend.release
6 mg PO DAILY
Eliquis 2.5 MG tablet
2.5 mg PO BID
docusate sodium 100 mg capsule
100 mg PO BID PRN (Reason: constipation)
furosemide 80 mg Tablet
80 mg PO BID
acetaminophen [Tylenol] 325 mg Tablet
650 mg PO BID
alprazolam 0.25 mg Tablet
0.25 mg PO HS PRN (Reason: sleep)
Patient Comments:
01/26/2023, patient filled this medication on 01/06/2023 for 30 tablets according to PDMP.
Citrucel 500 mg Tablet
1,000 mg PO QPM
ipratropium bromide 42 mcg (0.06 %) [place],Non-Aerosol
2 spray INTRANASAL DAILY
Refresh Classic (PF) 1.4-0.6 % Dropperette
1 drp BOTH EYES BID
Prolia 60 mg/mL Syringe
60 mg SC [id number]
Patient Comments:
01/26/2023, patient states next dose is scheduled for 03/04/2023.
dofetilide 125 mcg Capsule
125 mcg PO Q12 Qty: 60 1RF
metoprolol succinate 50 mg Tablet Extended Release 24 Hr
50 mg PO BID 30 Days Qty: 60 0RF
Held
calcium carbonate-vitamin D3 [Calcium 500 + D] 500 mg-5 mcg (200 unit) Tablet
1 tab PO BID Qty: 0
Hold Instructions: Resume on 07/28/24. Please ask your primary care physician if and when you should resume this medication.
Discontinued
potassium chloride 10 mEq Capsule, Extended Release
20 meq PO BID
diphenoxylate-atropine [Lomotil] 2.5-0.025 mg Tablet
1 tab PO DAILY PRN (Reason: diarrhea)
Discharge Orders:
Discharge Patient (As Directed); Ordered 07/14/24
Ordered By: Saqib Johansen
Discharge Date and Time
Discharge Date/Time: 07/14/24 16:16
Print Language: ITALIAN
[2024-07-14 15:09] VITALS: BP 112/58
== END 2024-07-14 16:16 | DRG 641 ==
LOC: 4 EAST ACU 09:03
PROVIDERS: ADMITTING PHYSICIAN General Practice; ATTENDING PHYSICIAN Hospitalist; EMERGENCY PHYSICIAN Student in an Organized Health Care Education/Training Program; FAMILY PHYSICIAN Internal Medicine
DX: E87.6 Hypokalemia (principal); I50.32 Chronic diastolic (congestive) heart failure; N39.0 Urinary tract infection, site not specified; I48.0 Paroxysmal atrial fibrillation; Z79.899 Other long term (current) drug therapy; F41.9 Anxiety disorder, unspecified; I11.0 Hypertensive heart disease with heart failure; M81.0 Age-related osteoporosis without current pathological fracture; E83.42 Hypomagnesemia; Z79.01 Long term (current) use of anticoagulants
CPT/HCPCS: 80048; 80053; 81003; 81015; 83735; 83880; 84132; 85025; 85027; 87077; 87086; 87186; 93005; 96361; 96374; 96375; 97116; 97163; 97166; 97530; 97535; 99291

== ENCOUNTER → 2024-07-19 16:12 | Outpatient (REF) | payer OTHER, SELFPAY ==
[2024-07-19 17:16] LABS: ALT (SGPT) 26 U/L (0-35); AST (SGOT) 25 U/L (14-36); Albumin 4.5 g/dl (3.5-5.0); Alkaline Phosphatase 55 U/L (38-126); Blood Urea Nitrogen 20 mg/dl (7-17); Calcium 8.6 mg/dl (8.4-10.2); Carbon Dioxide 31 mmol/L (22-30); Chloride 103 mmol/L (98-107); Glucose 87 mg/dl (70-99); Potassium 3.8 mmol/L (3.5-5.1); Sodium 142 mmol/L (135-145); Total Bilirubin 0.5 mg/dl (0.2-1.3); Total Protein 6.9 g/dl (6.3-8.2); eGFR 54.87
[2024-07-19 17:22] LABS: NT-proBNP 1780 pg/ml
== END ==
LOC: REG 16:12
PROVIDERS: ATTENDING PHYSICIAN Internal Medicine
DX: I48.0 Paroxysmal atrial fibrillation (principal); I50.9 Heart failure, unspecified; E87.6 Hypokalemia
CPT/HCPCS: 36415; 80053; 83880

== ENCOUNTER 2024-07-20 10:35 | Emergency (ER) | payer OTHER, SELFPAY ==
[2024-07-20] VITALS (7 sets, daily range): BP systolic 106–153; BP diastolic 53–91; BMI 20.5
--- NOTE | 2024-07-20 10:54 | ED.GENMED ---
History of Present Illness
<Claudia Forrest PA-C - Last Filed: 07/20/24 16:35>
General
Chief Complaint: Cough
Source: patient, records and ambulance crew
Exam Limitations: none
Time Seen by Provider: 07/20/24 10:37
History of Present Illness
History of Present Illness:
84yoF with a history of CHF, atrial fibrillation, hypertension presenting via EMS for evaluation of dizziness. Patient was recently hospitalized from 07/08/24-07/14/24 after presenting for palpitations and weakness. She was found to be in afib with
a potassium of 2.4 and was also treated for a UTI. Hypokalemia was thought to be from diuretics. She was doing well and actually saw her PCP yesterday. She started to develop dizziness last night which she describes as feeling 'weird' with
standing and lightheaded. She denies any vertiginous symptoms. She also reports having some chills last night but denies this currently. She had a transient episode of chest pain around 3am last night. She had pain in the center of her chest
that felt like gas pains. She put pressure on her chest and pain went away. She is experiencing a cough for the past few days. No fevers, shortness of breath, or syncope.
Past History
<Claudia Forrest PA-C - Last Filed: 07/20/24 16:35>
Past History
ED Past Medical History: Arrthythmia (Atrial fibrillation), CHF, HTN, Psychiatric (Anxiety) and Other (Collagenous colitis, constipation, osteopenia)
ED Past Surgical History: Cardiac (Cardioversion), Gynecological (D and C), Orthopedic (Bilateral carpal tunnel) and Tonsilectomy
Social History
Tobacco: Non-smoker
Alcohol: None
Personal:
Living: with family
Family History
Family History: Other (Noncontributory)
Phy Exam
<Claudia Forrest PA-C - Last Filed: 07/20/24 16:35>
General Physical Exam
General Presentation: well appearing and no apparent distress
General Skin: warm and dry
General Habitus: normal
General Mental: alert
ENT Exam
ENT Exam: normocephalic
Cardiovascular Exam
Cardiovascular Exam: regular rate/rhythm, no edema and no murmur
Pulmonary Exam
Pulmonary Exam: lungs clear, no respiratory distress, no rales, no crackles, no rhonchi and no wheezing
Gastrointestinal Exam
Gastrointestinal Exam: soft, non distended and other (Mild tenderness in epigastrium)
Neurological Exam
Neurological Exam: alert
[place] Coma Scale
Eye Opening: Spontaneous
Verbal Response: Oriented
Motor Response: Obeys Commands
GCS Total Score: 15
Skin Exam
Skin Exam: normal color and warm/dry
Psychiatric Exam
Psychiatric Exam: normal mood/affect
<Zafar Chu DO - Last Filed: 07/20/24 16:29>
[place] Coma Scale
GCS Total Score: 15
Course
<Claudia Forrest PA-C - Last Filed: 07/20/24 16:35>
Orders/Labs/Results
Orders:
Orders
07/20/24 10:48
Cardiac Monitoring- Treatment ONCE
US Abdomen Complete/Upper Urgent
Comment:
Reason For Exam: epigastric pain
07/20/24 10:49
Electrocardiogram (*1) Urgent
Reason for Study: Vertigo / Dizzy
EKG- Treatment ONCE
CR Chest - 2 Views Urgent
Comment:
Reason For Exam: cough
07/20/24 10:55
COVID-19 Antigen Urgent
Source: Nasal Swab
Complete Blood Count/With Diff Urgent
Influenza A+B Rapid Molecular Urgent
MOON Source: Nasal Swab
Specimen Description:
07/20/24 12:15
Basic Metabolic Panel Urgent
Lipase Urgent
Troponin I Urgent
07/20/24 12:55
ECG [Electrocardiogram (*1)] Urgent
Reason for Study: Bradycardia / Tachycardia
07/20/24 12:56
EKG- Treatment ONCE
07/20/24 12:58
Magnesium Urgent
Potassium Urgent
07/20/24 12:59
Diltiazem HCl [Cardizem] 10 mg IV NOW STA
07/20/24 13:02
ECG [Electrocardiogram (*1)] Urgent
Reason for Study: Bradycardia / Tachycardia
07/20/24 13:03
EKG- Treatment ONCE
07/20/24 13:04
0.9% Sodium Chloride 500 ml [Nss] 500 ml IV BOLUS
07/20/24 13:07
Metoprolol Xl [Toprol Xl] 50 mg PO NOW STA
07/20/24 13:24
Dofetilide [Tikosyn] 125 mcg PO NOW STA
07/20/24 13:34
Potassium Chloride [KCl] 60 meq PO NOW STA
07/20/24 13:39
Potassium Chloride 10% Elixir [KCl Elixir] 60 meq PO NOW STA
07/20/24 13:40
CARDIOLOGY CONSULT Urgent
Consulting Provider: Sandra Vegas
Was physician already notified: Yes
07/20/24 15:24
Troponin I Urgent
Abnormal Lab Results
07/20/24 07/20/24 07/20/24
10:55 12:15 12:58
RBC 4.11 L 10^6/uL
(4.20-5.40)
MCV 102.9 H fL
(81.0-99.0)
MCH 34.5 H pg
(27.0-31.0)
Absolute Lymphs (auto) 0.6 L 10^3/uL
(1.2-3.4)
Absolute Monos (auto) 1.1 H 10^3/uL
(0.1-0.6)
Neutrophils % 76.3 H %
(42.2-75.2)
Lymphocytes % 7.9 L %
(20.5-51.1)
Monocytes % 13.8 H %
(1.7-9.3)
Potassium 3.1 L mmol/L
(3.5-5.1)
Carbon Dioxide 36 H mmol/L
(22-30)
Glucose 104 H mg/dl
(70-99)
Calcium 8.3 L mg/dl
(8.4-10.2)
Lipase 21 L U/L
(23-300)
07/20/24 10:55
07/20/24 12:58
Vital Signs
Initial and Last Documented VS:
Initial Vital Signs
Temp Pulse Resp BP Pulse Ox
98.6 F 73 19 148/67 96
07/20/24 10:50 07/20/24 10:50 07/20/24 10:50 07/20/24 10:50 07/20/24 10:50
Last Documented Vital Signs
Temp Pulse Resp BP Pulse Ox
98.6 F 70 21 127/53 92
07/20/24 10:50 07/20/24 15:15 07/20/24 15:15 07/20/24 15:00 07/20/24 15:15
<Zafar Chu, DO - Last Filed: 07/20/24 16:29>
Orders/Labs/Results
Orders:
Orders
07/20/24 10:48
Cardiac Monitoring- Treatment ONCE
US Abdomen Complete/Upper Urgent
Comment:
Reason For Exam: epigastric pain
07/20/24 10:49
Electrocardiogram (*1) Urgent
Reason for Study: Vertigo / Dizzy
EKG- Treatment ONCE
CR Chest - 2 Views Urgent
Comment:
Reason For Exam: cough
07/20/24 10:55
COVID-19 Antigen Urgent
Source: Nasal Swab
Complete Blood Count/With Diff Urgent
Influenza A+B Rapid Molecular Urgent
MOON Source: Nasal Swab
Specimen Description:
07/20/24 12:15
Basic Metabolic Panel Urgent
Lipase Urgent
Troponin I Urgent
07/20/24 12:55
ECG [Electrocardiogram (*1)] Urgent
Reason for Study: Bradycardia / Tachycardia
07/20/24 12:56
EKG- Treatment ONCE
07/20/24 12:58
Magnesium Urgent
Potassium Urgent
07/20/24 12:59
Diltiazem HCl [Cardizem] 10 mg IV NOW STA
07/20/24 13:02
ECG [Electrocardiogram (*1)] Urgent
Reason for Study: Bradycardia / Tachycardia
07/20/24 13:03
EKG- Treatment ONCE
07/20/24 13:04
0.9% Sodium Chloride 500 ml [Nss] 500 ml IV BOLUS
07/20/24 13:07
Metoprolol Xl [Toprol Xl] 50 mg PO NOW STA
07/20/24 13:24
Dofetilide [Tikosyn] 125 mcg PO NOW STA
07/20/24 13:34
Potassium Chloride [KCl] 60 meq PO NOW STA
07/20/24 13:39
Potassium Chloride 10% Elixir [KCl Elixir] 60 meq PO NOW STA
07/20/24 13:40
CARDIOLOGY CONSULT Urgent
Consulting Provider: Sandra Vegas
Was physician already notified: Yes
07/20/24 15:24
Troponin I Urgent
Abnormal Lab Results
0507/20/24 07/20/24
10:55 12:15 12:58
RBC 4.11 L 10^6/uL
(4.20-5.40)
MCV 102.9 H fL
(81.0-99.0)
MCH 34.5 H pg
(27.0-31.0)
Absolute Lymphs (auto) 0.6 L 10^3/uL
(1.2-3.4)
Absolute Monos (auto) 1.1 H 10^3/uL
(0.1-0.6)
Neutrophils % 76.3 H %
(42.2-75.2)
Lymphocytes % 7.9 L %
(20.5-51.1)
Monocytes % 13.8 H %
(1.7-9.3)
Potassium 3.1 L mmol/L
(3.5-5.1)
Carbon Dioxide 36 H mmol/L
(22-30)
Glucose 104 H mg/dl
(70-99)
Calcium 8.3 L mg/dl
(8.4-10.2)
Lipase 21 L U/L
(23-300)
07/20/24 10:55
07/20/24 12:58
Vital Signs
Initial and Last Documented VS:
Initial Vital Signs
Temp Pulse Resp BP Pulse Ox
98.6 F 73 19 148/67 96
07/20/24 10:50 07/20/24 10:50 07/20/24 10:50 07/20/24 10:50 07/20/24 10:50
Last Documented Vital Signs
Temp Pulse Resp BP Pulse Ox
98.6 F 70 21 127/53 92
07/20/24 10:50 07/20/24 15:15 07/20/24 15:15 07/20/24 15:00 07/20/24 15:15
<Claudia Forrest PA-C - Last Filed: 07/20/24 16:35>
MDM/Problems Addressed
Differential Diagnosis Includes:
84yoF here with dizziness since last night. C/o feeling 'weird' and lightheaded with standing. Also c/o cough. Had chills and an episode of chest pain overnight but denies this currently. VSS. She is well appearing in no distress. Exam reassuring.
Differential diagnosis includes but is not limited to: dehydration, electrolyte abnormality, arrhythmia, orthostasis
Initial ED plan: Check cardiac labs, magnesium, COVID/flu swab, EKG, CXR, and upper abdominal ultrasound given some mild epigastric tenderness on exam.
Final assessment: While waiting for lab results, patient had an episode of tachycardia with HR up to the 190s. Repeat EKG obtained which appears consistent with rapid afib with marked diffuse ST depressions. IV Cardizem ordered but before medication
could be administered, she converted spontaneously to NSR. Potassium came back at 3.1 which was replaced. Troponin 0.022. CXR is clear. Cardiology consult placed and case signed out to Dr. Chu awaiting cardiology evaluation.
<Claudia Forrest PA-C - Last Filed: 07/20/24 16:35>
*EKG
Interpreted by ED Provider?: Yes
EKG Intrepretation Date: 07/20/24
Heart Rate: 70
Rate: normal
Rhythm: sinus
Elton: normal axis
Interval: normal interval
QRS Pattern: normal QRS
Ischemia: non-specific ST changes (appears improved from prior EKG on 07/08/24)
*Critical Care Note
Total Time (30-74mins, 75-104mins- exclusive of procedures): Not Applicable
ED Attending Note
<Claudia Forrest PA-C - Last Filed: 07/20/24 16:35>
-
Portions of this chart may have been created with voice recognition software.� Occasional wrong word or��sound alike� substitutions may have occurred due to the inherent limitations of voice recognition software.
<Zafar Mendoza Vlad, DO - Last Filed: 07/20/24 16:29>
ED Attending Note
Patient seen and examined by attending physician: Yes
I performed the substantive portion of visit, reviewed & personally made and approve the management plan that is documented in note by myself or RAYNA.: Yes
ED Attending Note:
I evaluated the patient at bedside. She briefly had an episode of rapid A-fib with marked ST abnormality. However when she was rapid in the past she had marked ST abnormality. Discussed troponins with Dr. Vegas. She is stopping the Tikosyn
and will start amiodarone and wants her to decrease the metoprolol. She also recommends antibiotic for the cough�I have placed her on amoxicillin.
Discharge Plan
Departure
Patient Disposition: Home (Routine Discharge)
Date of Disposition: 07/20/24
Time of Disposition: 16:22
Patient with high blood pressure during this ER visit?: Yes
Discharge Problem:
Cough
Instructions: Cough, Adult (DC)
Prescriptions:
New
amoxicillin 500 mg tablet
1,000 mg PO TID Qty: 21 0RF
No Action
mometasone 0.1 % cream
1 applic topical DAILYPRN PRN (Reason: on ear for fungus itching)
multivitamin with folic acid [Tab-A-Bertin] 1 TABLET tablet
1 tab PO DAILY
budesonide 3 MG capsule,delayed,extend.release
6 mg PO DAILY
Eliquis 2.5 MG tablet
2.5 mg PO BID
furosemide 80 mg Tablet
80 mg PO BID
acetaminophen [Tylenol] 325 mg Tablet
650 mg PO BID
alprazolam 0.25 mg Tablet
0.25 mg PO HS PRN (Reason: sleep)
Patient Comments:
01/26/2023, patient filled this medication on 01/06/2023 for 30 tablets according to PDMP.
Citrucel 500 mg Tablet
1,000 mg PO QPM
ipratropium bromide 42 mcg (0.06 %) Ione,Non-Aerosol
2 spray INTRANASAL DAILY
Refresh Classic (PF) 1.4-0.6 % Dropperette
1 drp BOTH EYES BID
Prolia 60 mg/mL Syringe
60 mg SC [id number]
dofetilide 125 mcg Capsule
125 mcg PO Q12 Qty: 60 1RF
metoprolol succinate 50 mg tablet extended release 24 hr
100 mg PO BID
potassium chloride 20 mEq tablet,ER particles/crystals
20 meq PO BID
Referrals:
Fabio Hawkins MD [Family Provider, Internal Medicine]
Activity Restrictions/Additional Instructions:
The cause of your symptoms is unclear. The chest x-ray does not show any clear sign of pneumonia. However we could still try an antibiotic as recommended by Dr. Vegas. She states that she is changing some of her medications and will send
prescriptions to your pharmacy. She is planning on having you stop the Tikosyn and start amiodarone 400mg twice daily and decrease metoprolol 50mg twice daily instead.
Interventions
Interventions:
*Risk Screen - Suicide Last Done: 07/20/24 10:50
*General Assessment Last Done: 07/20/24 10:50
*Neglect/Abuse Screening Last Done: 07/20/24 10:50
*ED- Fall Risk Assessment Last Done: 07/20/24 10:50
*ED COVID-19 Vaccine History Last Done: 07/20/24 10:50
ED- Pulmonary Assessment Last Done: 07/20/24 11:08
Discharge Date and Time
Print Language: WALLISIAN
[2024-07-20 11:08] LABS: % Basophils 0.6 % (0-2); % Immature Granulocytes 0.4 % (0-0.5); % Lymphocytes 7.9 % (20.5-51.1); % Monocytes 13.8 % (1.7-9.3); % Neutrophils 76.3 % (42.2-75.2); Absolute Basophils 0.1 10^3/uL (0-0.2); Absolute Eosinophils 0.1 10^3/uL (0-0.7); Absolute Lymphocytes 0.6 10^3/uL (1.2-3.4); Absolute Monocytes 1.1 10^3/uL (0.1-0.6); Hematocrit 42.3 % (37.0-47.0); Hemoglobin 14.2 g/dL (12.0-16.0); Mean Corp Hgb Conc. 33.6 g/dL (33.0-37.0); Mean Corpuscular Hgb 34.5 pg (27.0-31.0); Mean Corpuscular Volume 102.9 fL (81.0-99.0); Mean Platelet Volume 10.2 fL (7.4-10.4); Nucleated Red Blood Cells % 0 %; Platelet Count 233 10^3/uL (130-400); Red Blood Cell Count 4.11 10^6/uL (4.20-5.40); Red Cell Dist. Width 13.2 % (11.5-14.5); White Blood Cell Count 7.9 10^3/uL (4.8-10.8)
[2024-07-20 11:27] LABS: COVID-19 Antigen Negative (Negative)
[2024-07-20 13:04] LABS: Blood Urea Nitrogen 15 mg/dl (7-17); Calcium 8.3 mg/dl (8.4-10.2); Carbon Dioxide 36 mmol/L (22-30); Chloride 101 mmol/L (98-107); Estimated Creatinine Clearance 42 ml/min; Glucose 104 mg/dl (70-99); Lipase 21 U/L (23-300); Sodium 141 mmol/L (135-145); eGFR > 60.00
[2024-07-20] MEDS: NSS 500 IV (13:04)
[2024-07-20 13:26] LABS: Troponin I 0.022 ng/ml
[2024-07-20 13:30] LABS: Potassium 3.1 mmol/L (3.5-5.1)
[2024-07-20] MEDS: TIKOSYN 125 MCG PO (13:43)
[2024-07-20] MEDS: TOPROL XL 50 MG PO (13:43)
[2024-07-20] MEDS: KCL ELIXIR 60 MEQ PO (13:43)
--- NOTE | 2024-07-20 15:05 | CON.CAR ---
Consultation
Consultation Request
Date/Time Consultation Requested: 07/20/24 1:40p
Date/Time Consultation Performed: 07/20/24 3p
Requesting Provider: Claudia Forrest PA-C
Performing Provider: SHAR Cobian for Dr. Vegas
Reason for Consultation: tachycardia
Medical History
-
Chief Complaint: cough
History of Present Illness:
Mrs. Alexander is an 84 yo female with persistent AFib (in sinus on dofetilide and s/p 2 ablations), on Eliquis, HFpEF (exacerbated by AFib), HTN, PAD, celiac disease, and venous insufficiency, who presented to the ER with c/o cough. In the ER she had
atrial tachycardia with rates 160s then returns to NSR. She c/o feeling 'weird' when in atrial tachycardia. Otherwise she denies any cardiac symptoms currently.
Past Medical History
Past Medical History: Other (as above)
Social History
Tobacco: Non-Smoker
Personal:
Living: With Family
Family History
Family History: Reviewed & Not Pertinent
Allergies / Home Medications
Allergy/AdvReac Type Severity Reaction Status Date / Time
digoxin Allergy Unknown toxicity...hospital Verified 07/20/24 10:50
overnight
gluten Allergy celiac Verified 07/20/24 10:50
disease
Sulfa (Sulfonamide Allergy Tongue Verified 07/20/24 10:50
Antibiotics) Swelling
SHELLEY Inhibitors AdvReac COUGH Verified 07/20/24 10:50
[id number]-[id number] Reductase AdvReac ACHY Verified 07/20/24 10:50
Inhibitor (Dftmtef-Sih-Jxr MUSCLES
Reductase Inhibitor)
�Medication �Instructions �Recorded �Confirmed �Type
mometasone 0.1 % topical cream 1 applic topical DAILYPRN PRN on 12/12/18 07/20/24 History
ear for fungus itching
multivitamin with folic acid 400 1 tab PO DAILY Supplement 12/12/18 07/20/24 History
mcg tablet (Tab-A-Bertin)
budesonide 3 mg 6 mg PO DAILY Gastrointestinal 05/28/21 07/20/24 History
capsule,delayed,extended release issue
apixaban 2.5 mg tablet (Eliquis) 2.5 mg PO BID Blood clot 10/02/21 07/20/24 History
prevention/tx
furosemide 80 mg tablet 80 mg PO BID Fluid 01/08/22 07/20/24 History
Retention/Swelling
acetaminophen 325 mg tablet 650 mg PO BID pain 01/13/22 07/20/24 History
(Tylenol)
alprazolam 0.25 mg tablet 0.25 mg PO HS PRN sleep 01/26/23 07/20/24 History
denosumab 60 mg/mL subcutaneous 60 mg SC [id number] osteoporosis 01/26/23 07/20/24 History
syringe (Prolia)
ipratropium bromide 42 mcg (0.06 2 spray intranasal DAILY Allergies 01/26/23 07/20/24 History
%) nasal spray
methylcellulose (laxative) 500 mg 1,000 mg PO QPM Constipation 01/26/23 07/20/24 History
tablet (Citrucel)
polyvinyl alcohol-povidone (PF) 1 drp BOTH EYES BID dry eyes 01/26/23 07/20/24 History
1.4 %-0.6 % eye drops in a
dropperette (Refresh Classic (PF))
dofetilide 125 mcg capsule 125 mcg PO Q12 #60 caps 01/29/23 07/20/24 Rx
metoprolol succinate 50 mg 100 mg PO BID 07/20/24 07/20/24 History
tablet,extended release 24 hr
potassium chloride 20 mEq 20 meq PO BID 07/20/24 07/20/24 History
tablet,extended release(part/cryst)
Review of Systems
-
History Source: Patient
All other systems: Negative unless noted
Physical Exam
Vital Signs
Temp Pulse Resp BP Pulse Ox
98.6 F 69 24 130/69 96
07/20/24 10:50 07/20/24 14:15 07/20/24 14:15 07/20/24 14:00 07/20/24 14:15
Lab Results
07/20/24 10:55
07/20/24 12:58
Troponin I 0.022 ng/ml 07/20/24 12:15
Physical Exam
General: Well Developed, Well Nourished and No Apparent Distress
HEENT: Normocephalic and Moist Mucous Membranes
Respiratory: Clear and Non Labored Respirations
Cardiac: S1/S2 and Regular Rhythm
Breast: Deferred by me
GI: Soft, Non Tender and Normal Bowel Sounds
Rectal: Deferred by Provider
Genito-urinary: No Costovertebral Tender
Musculoskeletal: No Clubbing, No Cyanosis and No Edema
Skin: Warm and Dry
Neuro: AO x 3
Psych: Calm
Impression / Plan
-
Atrial tachycardia - rapid rates.
- will stop Tikosyn and start Amiodarone 400mg BID x 2 weeks then 200mg daily.
- reduce Toprol to 50mg BID.
- continue Eliquis 2.5mg BID.
- follow up Dr. Barron as an outpatient.
Afib - stable in NSR with short runs of rapid Atach.
- plan as above.
- continue Eliquis.
- s/p ablation x 2.
HFpEF - chronic, stable.
- continue medical therapy.
Hypokalemia - replete and monitor.
Data Reviewed
-
EKG: Tracing Personally Visualized and interpreted (Atrial tachycardia )
Labs: Labs Reviewed by me
Old Records: Reviewed
[2024-07-20 15:54] LABS: Troponin I 0.027 ng/ml
== END 2024-07-20 18:15 | disposition home or self-care (01) ==
LOC: EMR 10:35
PROVIDERS: Emergency Medicine; Physician Assistant; CONSULT PHYSICIAN Internal Medicine Cardiovascular Disease; EMERGENCY PHYSICIAN Emergency Medicine; FAMILY PHYSICIAN Internal Medicine
DX: R05.9 Cough, unspecified (principal); I11.0 Hypertensive heart disease with heart failure; I50.32 Chronic diastolic (congestive) heart failure; E87.6 Hypokalemia; F41.9 Anxiety disorder, unspecified; I48.19 Other persistent atrial fibrillation; I87.2 Venous insufficiency (chronic) (peripheral); Z79.01 Long term (current) use of anticoagulants; Z82.62 Family history of osteoporosis; Z83.79 Family history of other diseases of the digestive system
CPT/HCPCS: 99284; 96360; 71046; 76700; 80048; 83690; 83735; 84132; 84484; 85025; 87502; 87811; 93005

== ENCOUNTER 2024-07-21 13:19 | Inpatient (IN) | payer OTHER, SELFPAY ==
[2024-07-21] VITALS (12 sets, daily range): BP systolic 90–148; BP diastolic 45–71; BMI 20.3; BMI 21.1
[2024-07-21 08:54] LABS: % Basophils 0.6 % (0-2); % Eosinophils 0.2 % (0-6); % Immature Granulocytes 0.6 % (0-0.5); % Lymphocytes 7.3 % (20.5-51.1); % Monocytes 15.8 % (1.7-9.3); % Neutrophils 75.5 % (42.2-75.2); Absolute Lymphocytes 0.5 10^3/uL (1.2-3.4); Absolute Neutrophils 4.9 10^3/uL (1.4-6.5); Hematocrit 39.7 % (37.0-47.0); Hemoglobin 13.3 g/dL (12.0-16.0); Mean Corp Hgb Conc. 33.5 g/dL (33.0-37.0); Mean Corpuscular Hgb 34.6 pg (27.0-31.0); Mean Corpuscular Volume 103.4 fL (81.0-99.0); Mean Platelet Volume 10.6 fL (7.4-10.4); Nucleated Red Blood Cells % 0 %; Platelet Count 200 10^3/uL (130-400); Red Blood Cell Count 3.84 10^6/uL (4.20-5.40); Red Cell Dist. Width 13.3 % (11.5-14.5); White Blood Cell Count 6.5 10^3/uL (4.8-10.8)
[2024-07-21 09:01] LABS: Urine Albumin 1+ (Neg - Trace); Urine Bilirubin Negative (Negative); Urine Character Clear (Clear); Urine Color Yellow; Urine Glucose Negative (Negative); Urine Ketone Negative (Negative); Urine Leukocyte Negative (Negative); Urine Nitrite Negative (Negative); Urine Occult Blood 1+ (Negative); Urine Urobilinogen Negative (Neg - 1+)
[2024-07-21 09:04] LABS: Lactic Acid 1.5 mmol/L (0.7-2.0)
[2024-07-21] MEDS: TYLENOL 650 MG PO ×2 (09:13→20:21)
[2024-07-21] MEDS: NSS 500 IV ×2 (09:13→10:58)
--- NOTE | 2024-07-21 09:23 | ED.GENMED ---
History of Present Illness
General
Chief Complaint: Fever
Source: patient and significant other
Exam Limitations: none
Time Seen by Provider: 07/21/24 08:24
Nursing documentation reviewed up to this point in time: agreed with
History of Present Illness
History of Present Illness:
84-year-old female with a past medical history of paroxysmal A-fib, CHF, hypertension, osteoporosis was admitted from [address] [place] [address] for generalized malaise, bilateral lower extremity edema and weight gain. She had the addition of metolazone as an
outpatient prior to admission and was found to have a potassium of 2.4. Patient was also found to have a UTI during this admission and was prescribed antibiotics and completed that. She had E. coli in her urine and was on cefdinir
Patient returned yesterday complaining she had some lightheadedness or feeling weird in her head, some chills and transient episode of chest pain with a cough. Patient says that the episode of chest pain was brief and not persistent but the cough
was going on for a few days. She was not short of breath
Patient was being worked up for cardiac chest pain, COVID and flu, etc. and while waiting for her workup she had a brief episode of tachycardia with a heart rate up to 190s which look like rapid A-fib with marked diffuse ST depressions. Patient was
ordered to receive Cardizem but she spontaneously converted to normal sinus rhythm. Patient's potassium was mildly low at 3.1 and was repleted. Chest x-ray was read by radiology as clear. Patient did see cardiology as a consult in the emergency
department ultimately Dr. Vegas
Recommended that the patient's stop the Tikosyn and start amiodarone and decrease her metoprolol and recommended antibiotics for her cough so she started amoxicillin received 1 tablet last night before discharge.
She went home and says she felt wiped out and fatigued. She continued to cough through the night and then woke up around 3 AM with chills. Her third thermometer ran out of batteries so she could not check her temperature. Patient does feel very
dehydrated this morning. She has celiac disease and normally has several bowel movements a day and has not had a bowel movement. She has not really had any water. She denies any chest pain, abdominal pain, shortness of breath, urinary symptoms
Past History
Past History
ED Past Medical History: Arrthythmia (Atrial fibrillation), CHF, HTN, Psychiatric (Anxiety) and Other (Collagenous colitis, constipation, osteopenia)
ED Past Surgical History: Cardiac (Cardioversion), Gynecological (D and C), Orthopedic (Bilateral carpal tunnel) and Tonsilectomy
Social History
Tobacco: Non-smoker
Alcohol: None
Personal:
Living: with family
Family History
Family History: Other (Noncontributory)
Review of Systems
Review of Systems
Allergies reviewed?: Yes
All Other Systems: Not applicable
Phy Exam
Physical Exam
Physical Exam:
GENERAL: Alert , wiped out but nontoxic
EYE: pupils equal and reactive
NECK: Supple
ENT: b/l TM s clear VERY DRY MOUTH
CARDIAC: Regular rate and rhythm, no edema
LUNGS: mild ronchi L base; no wheezing/ no tachypnea, no rales
ABDOMEN: Soft, without focal tenderness, no r/g, no cvat, normal bowel sounds
NEUROLOGICAL: Alert and oriented, no focal neuro deficits
SKIN: Warm and dry, skin intact.
MUSCULOSKELETAL: No edema, well perfused.
PSYCH: Normal and appropriate interaction.
Course
Orders/Labs/Results
Orders:
Orders
07/21/24 08:25
COVID-19 Antigen Urgent
Source: Nasal Swab
07/21/24 08:37
Complete Blood Count/With Diff Urgent
Lactic Acid Urgent
Blood Culture Urgent
MOON Source: Blood/Venous
Specimen Description:
Influenza A+B Rapid Molecular Urgent
MOON Source: Nasal Swab
Specimen Description:
07/21/24 08:38
Urinalysis Reflex To Culture Urgent
Date Specimen was Collected: 07/21/24
Time Specimen was Collected: 08:36
Urine Microscopic Reflex Cult Urgent
07/21/24 09:05
0.9% Sodium Chloride 500 ml [Nss] 500 ml IV BOLUS
07/21/24 09:06
Acetaminophen [Tylenol] 650 mg PO NOW STA
07/21/24 09:07
Add On- LAB Urgent
Tests Added?: MONO
CR Chest - 2 Views Urgent
Comment:
Reason For Exam: FEVER, COUGH, RETURNED VISIT
07/21/24 09:09
Blood Culture Urgent
MOON Source: Blood/Venous
Specimen Description:
07/21/24 09:34
Add On - Microbiology Urgent
Tests Added?: covid 19
07/21/24 09:45
Comprehensive Metabolic Panel Urgent
Monotest Urgent
07/21/24 10:32
CT Chest W/o Iv Contrast Urgent
Comment:
Reason For Exam: fever, cough
0.9% Sodium Chloride 500 ml [Nss] 500 ml IV BOLUS
07/21/24 11:43
Add On- LAB Urgent
Tests Added?: cpk
Abnormal Lab Results
07/21/24 07/21/24 07/21/24
08:37 08:38 09:45
RBC 3.84 L 10^6/uL
(4.20-5.40)
MCV 103.4 H fL
(81.0-99.0)
MCH 34.6 H pg
(27.0-31.0)
MPV 10.6 H fL
(7.4-10.4)
Absolute Lymphs (auto) 0.5 L 10^3/uL
(1.2-3.4)
Absolute Monos (auto) 1.0 H 10^3/uL
(0.1-0.6)
Immature Gran % 0.6 H %
(0-0.5)
Neutrophils % 75.5 H %
(42.2-75.2)
Lymphocytes % 7.3 L %
(20.5-51.1)
Monocytes % 15.8 H %
(1.7-9.3)
Potassium 3.1 L mmol/L
(3.5-5.1)
Glucose 119 H mg/dl
(70-99)
Calcium 7.5 L mg/dl
(8.4-10.2)
Alkaline Phosphatase 36 L U/L
(38-126)
Total Protein 5.7 L g/dl
(6.3-8.2)
Albumin 3.3 L g/dl
(3.5-5.0)
Ur Occult Blood Reflex 1+ A
(Negative)
Urine Albumin (Reflex) 1+ A
(Neg - Trace)
07/21/24 08:37
07/21/24 10:04
Vital Signs
Initial and Last Documented VS:
Initial Vital Signs
BP Pulse Ox
124/61 93
07/21/24 08:23 07/21/24 08:23
Last Documented Vital Signs
Temp Pulse Resp BP Pulse Ox
37.2 C 63 18 103/52 99
07/21/24 11:13 07/21/24 12:00 07/21/24 12:00 07/21/24 11:59 07/21/24 12:03
MDM/Problems Addressed
Differential Diagnosis Includes:
pneumonia, covid, flu, uti, bacteremia
MDM/Problems Addressed:
room 32 [facility]
PAF on eliquis, chf on lasix; just hosp 07/08-07/14 for uti and afib and HF
was here yesterday cough, lightheadedness
had brief rapid AF whiich converted
w/u really unremarkable but cards saw her, went home on amio rather than tikosyn
amox for a cough but cxr neg
here for fever, chills, hypotension, dry cough
cxr/ct neg for pna;
wbc normal, flu covid neg, ua neg
not sure where fever comign from, i suppose viral but her bps remain soft 90s/50s
*Critical Care Note
Total Time (30-74mins, 75-104mins- exclusive of procedures): Not Applicable
ED Attending Note
-
Portions of this chart may have been created with voice recognition software.� Occasional wrong word or��sound alike� substitutions may have occurred due to the inherent limitations of voice recognition software.
Discharge Plan
Departure
Patient Disposition: Admit
Date of Disposition: 07/21/24
Time of Disposition: 11:41
Admit to: Telemetry
Presentation/result/management discussed w/ accepting MD/DO: Hospitalist
Condition: Fair
Covid-19: Negative COVID-19
Discharge Problem:
Fever, Hypotension, Bronchitis
Prescriptions:
No Action
multivitamin with folic acid [Tab-A-Bertin] 1 TABLET tablet
1 tab PO DAILY
budesonide 3 MG capsule,delayed,extend.release
6 mg PO DAILY
Eliquis 2.5 MG tablet
2.5 mg PO BID
furosemide 80 mg Tablet
80 mg PO BID
alprazolam 0.25 mg Tablet
0.25 mg PO HS
Citrucel 500 mg Tablet
1,000 mg PO QPM
Refresh Classic (PF) 1.4-0.6 % Dropperette
1 drp BOTH EYES BID
Prolia 60 mg/mL Syringe
60 mg SC [id number]
metoprolol succinate 50 mg tablet extended release 24 hr
50 mg PO BID
potassium chloride 20 mEq tablet,ER particles/crystals
20 meq PO BID
amoxicillin 500 mg tablet
1,000 mg PO TID Qty: 21 0RF
Rx Instructions:
start 07/20/24
amiodarone 200 mg Tablet
400 mg PO DIRECTED
Rx Instructions:
starting 07/20/24 take 400mg bid for 14 days then 200mg daily for 30 days
polyethylene glycol 3350 [Miralax] 17 gram Powder In Packet
17 g PO DAILYPRN PRN (Reason: constipation)
Referrals:
Fabio Hawkins MD [Family Provider, Internal Medicine]
Interventions
Interventions:
*Risk Screen - Suicide Last Done: 07/21/24 08:40
*General Assessment Last Done: 07/21/24 08:40
*Neglect/Abuse Screening Last Done: 07/21/24 08:40
*ED- Fall Risk Assessment Last Done: 07/21/24 08:28
*ED COVID-19 Vaccine History Last Done: 07/21/24 08:28
ED- Neurological Assessment Last Done: 07/21/24 12:03
ED-Skin Assessment Last Done: 07/21/24 12:03
Discharge Date and Time
Print Language: KYRGYZ
[2024-07-21 10:11] LABS: COVID-19 Antigen Negative (Negative)
[2024-07-21 10:25] LABS: Urine Mucus Few; Urine Squamous Cell 0-2 /LPF (Few)
[2024-07-21 10:26] LABS: Urine Hyaline Cast 0-2 /LPF (0-2); Urine Red Blood Cell 0-2 /HPF (0-2)
[2024-07-21 10:43] LABS: Monotest Negative (Negative)
[2024-07-21 10:46] LABS: ALT (SGPT) 19 U/L (0-35); AST (SGOT) 28 U/L (14-36); Albumin 3.3 g/dl (3.5-5.0); Alkaline Phosphatase 36 U/L (38-126); Blood Urea Nitrogen 11 mg/dl (7-17); Calcium 7.5 mg/dl (8.4-10.2); Carbon Dioxide 29 mmol/L (22-30); Chloride 104 mmol/L (98-107); Estimated Creatinine Clearance 47 ml/min; Glucose 119 mg/dl (70-99); Potassium 3.1 mmol/L (3.5-5.1); Sodium 139 mmol/L (135-145); Total Bilirubin 0.6 mg/dl (0.2-1.3); Total Protein 5.7 g/dl (6.3-8.2); eGFR > 60.00
--- NOTE | 2024-07-21 11:59 | EDRN ---
Piper LAWS in room w/pt at this time.
--- NOTE | 2024-07-21 12:29 | HPS.HSE ---
Family Physician
-
Family Physician: Fabio Hawkins
Chief Complaint
-
cough
History of Present Illness
84-year-old female past medical history of persistent atrial fibrillation on Eliquis, HFpEF, hypertension, PAD, venous insufficiency, osteoporosis, celiac disease presenting with fever. She had lightheadedness and weird feeling in her head and some
chills and transient episode of chest pain with cough and came to the emergency room yesterday. Chest pain was brief but cough is ongoing for few days. Not able to bring anything up. Denies shortness of breath. While awaiting workup in the
emergency room she had brief episode of tachycardia with heart rate up to 190s which look like rapid A-fib with diffuse ST depressions. She spontaneously converted to normal sinus rhythm. Potassium was 3.1 and repleted. Chest x-ray was
unremarkable. She was seen by cardiology in the emergency room who recommended patient stop Tikosyn and start amiodarone and decrease her metoprolol recommend antibiotics for cough so she was started on amoxicillin.
She went home and felt wiped out and fatigued. She continued to have cough throughout the night and then woke up around 3 AM with chills. Her thermometer ran out of battery so she could not check her temperature. She was very dehydrated this
morning. She normally has several bowel movements a day secondary to celiac disease but did not have any bowel movements in 2 days.
Denies chest pain, abdominal pain, shortness of breath or urinary symptoms.
She was admitted from 07/08 to 07/14 for generalized malaise. She was found to be in atrial fibrillation and she was hypokalemic and had a UTI treated with cefdinir.
She drinks alcohol socially. Denies smoking.
Medical History
Past Medical History
Past Medical History: Reports Other (persistent atrial fibrillation on Eliquis, HFpEF, hypertension, PAD, venous insufficiency, osteoporosis, celiac disease)
Past Surgical History: Reports None
Social History
Tobacco: Non-smoker
Alcohol: Occasional
Drug: None
Family History
Family History: Not pertinent
Allergies / Home Medications
Allergies reflects when Allergies were last updated in [facility].
Home Medications with original date entered in [facility]
Allergy/Medication List:
Allergies
Allergy/AdvReac Type Severity Reaction Status Date / Time
digoxin Allergy Unknown toxicity...hospital Verified 07/20/24 10:50
overnight
gluten Allergy celiac Verified 07/20/24 10:50
disease
Sulfa (Sulfonamide Allergy Tongue Verified 07/20/24 10:50
Antibiotics) Swelling
SHELLEY Inhibitors AdvReac COUGH Verified 07/20/24 10:50
[id number]-MTH-[id number] Reductase AdvReac ACHY Verified 07/20/24 10:50
Inhibitor (Gncenee-Yuz-Drb MUSCLES
Reductase Inhibitor)
Home Medications
multivitamin with folic acid 400 mcg tablet (Tab-A-Bertin) 1 tab PO DAILY Supplement 12/12/18
budesonide 3 mg capsule,delayed,extended release 6 mg PO DAILY Gastrointestinal issue 05/28/21
apixaban 2.5 mg tablet (Eliquis) 2.5 mg PO BID Blood clot prevention/tx 10/02/21
furosemide 80 mg tablet 80 mg PO BID Fluid Retention/Swelling 01/08/22
alprazolam 0.25 mg tablet 0.25 mg PO HS sleep 01/26/23
denosumab 60 mg/mL subcutaneous syringe (Prolia) 60 mg SC [id number] osteoporosis 01/26/23
methylcellulose (laxative) 500 mg tablet (Citrucel) 1,000 mg PO QPM Constipation 01/26/23
polyvinyl alcohol-povidone (PF) 1.4 %-0.6 % eye drops in a dropperette (Refresh Classic (PF)) 1 drp BOTH EYES BID dry eyes 01/26/23
amoxicillin 500 mg tablet 1,000 mg (2 x 500 mg) PO TID #21 tabs 07/20/24
metoprolol succinate 50 mg tablet,extended release 24 hr 50 mg PO BID 07/20/24
potassium chloride 20 mEq tablet,extended release(part/cryst) 20 meq PO BID 07/20/24
amiodarone 200 mg tablet 400 mg PO DIRECTED 07/21/24
polyethylene glycol 3350 17 gram oral powder packet (Miralax) 17 g PO DAILYPRN PRN constipation 07/21/24
Review of Systems
-
History Source: Patient
A 12 point ROS was completed and negative except as noted: Yes
Constitutional: Reports No Symptoms
EENT: Reports No Symptoms
Respiratory: Reports See HPI
Cardiac: Reports See HPI
Abdomen/GI: Reports No Symptoms
: Reports No Symptoms
Musculoskeletal: Reports No Symptoms
Skin: Reports No Symptoms
Neurological: Reports No Symptoms
Endocrine: Reports No Symptoms
Hematologic/Lymphatic: Reports No Symptoms
Psych: Reports No Symptoms
Physical Exam
Vital Signs
Vital Signs
Temp Pulse Resp BP Pulse Ox
98.9 F 63 18 103/52 99
07/21/24 11:13 07/21/24 12:00 07/21/24 12:00 07/21/24 11:59 07/21/24 12:03
Physical Exam
General: Well Developed, Well Nourished and No Apparent Distress
HEENT: NormoCephalic, Moist mucous membranes and Atraumatic
Respiratory: Rhonchi
Cardiac: S1/S2 and Regular Rhythm; No Murmur or Rub
GI: Soft, Non Tender, Non Distended and Normal Bowel Sounds; No Organomegaly
Rectal: Deferred by Provider
Musculoskeletal: No Clubbing, No Cyanosis and No Edema
Skin: No Rash
Neuro: Nonfocal/grossly intact
Laboratory Results
-
07/21/24 08:37
07/21/24 10:04
Laboratory Results
Lactic Acid 1.5 mmol/L (0.7-2.0) 07/21/24 08:37
Total Bilirubin Cancelled 07/21/24 10:04
AST Cancelled 07/21/24 10:04
ALT Cancelled 07/21/24 10:04
Alkaline Phosphatase Cancelled 07/21/24 10:04
Data Reviewed
-
Lab Data: Labs Reviewed by me
Old Records: Reviewed
Impression/Plan
-
IMPRESSION:
PLAN:
# Acute bronchitis/viral URI
-Fever 102
-Blood pressure 90s likely from hypovolemia from diuresis
-COVID and flu negative
- CT chest today shows no acute findings within the chest, mild bronchiectasis within both lower lobes
- Blood cultures pending
- Continue amoxicillin started yesterday
- IV fluids
- Hold Lasix
- Continue ipratropium as needed
- Mucinex
# Hypokalemia secondary to diuresis
- Replete potassium
Persistent atrial fibrillation
-Currently in sinus rhythm
- Tikosyn stopped yesterday and started amiodarone by cardiology
- Continue metoprolol
- Continue Eliquis
Chronic HFpEF
- Hold Lasix
Essential hypertension
PAD
Chronic venous insufficiency
Osteoporosis
Celiac disease
- Continue budesonide
Anxiety
- Continue alprazolam
Full code
DVT prophylaxis�Eliquis
Cardiac diet
[2024-07-21] MEDS: KCL 40 MEQ PO (12:45)
[2024-07-21 13:58] LABS: Creatine Phosphokinase 41 U/L (30-135)
[2024-07-21 15:01] LABS: Magnesium 1.6 mg/dl (1.6-2.3)
[2024-07-21] MEDS: MUCINEX 1200 MG PO ×2 (15:27→20:20)
[2024-07-21] MEDS: AMOXIL 1000 MG PO ×2 (15:28→20:21)
[2024-07-21] MEDS: NSS 1000 IV (15:31)
[2024-07-21] MEDS: ATROVENT NEBULES 0.5 MG INH ×2 (15:39→19:58)
[2024-07-21] MEDS: FIBERCON 1250 MG PO (17:44)
[2024-07-21] MEDS: TOPROL XL 50 MG PO (20:20)
[2024-07-21] MEDS: XANAX 0.25 MG PO (20:20)
[2024-07-21] MEDS: ELIQUIS 2.5 MG PO (20:20)
[2024-07-21] MEDS: KCL 20 MEQ PO (20:21)
[2024-07-21] MEDS: PACERONE 400 MG PO (20:21)
[2024-07-21] MEDS: REFRESH EYE DROPS (PF) 1 DROPS BOTH EYES (20:21)
[2024-07-22] MEDS: NSS 1000 IV ×2 (02:21→12:45)
[2024-07-22 03:21] VITALS: BP 117/58
[2024-07-22 07:35] VITALS: BP 138/56
[2024-07-22] MEDS: ATROVENT NEBULES 0.5 MG INH ×4 (08:01→18:24)
[2024-07-22 08:51] LABS: % Basophils 0.6 % (0-2); % Eosinophils 0.5 % (0-6); % Immature Granulocytes 0.3 % (0-0.5); % Lymphocytes 11.7 % (20.5-51.1); % Neutrophils 74.9 % (42.2-75.2); Absolute Lymphocytes 0.8 10^3/uL (1.2-3.4); Absolute Monocytes 0.8 10^3/uL (0.1-0.6); Absolute Neutrophils 4.9 10^3/uL (1.4-6.5); Hematocrit 36.5 % (37.0-47.0); Hemoglobin 11.9 g/dL (12.0-16.0); Mean Corp Hgb Conc. 32.6 g/dL (33.0-37.0); Mean Corpuscular Hgb 33.7 pg (27.0-31.0); Mean Corpuscular Volume 103.4 fL (81.0-99.0); Mean Platelet Volume 10.3 fL (7.4-10.4); Nucleated Red Blood Cells % 0 %; Platelet Count 171 10^3/uL (130-400); Red Blood Cell Count 3.53 10^6/uL (4.20-5.40); Red Cell Dist. Width 13.5 % (11.5-14.5); White Blood Cell Count 6.6 10^3/uL (4.8-10.8)
--- NOTE | 2024-07-22 08:54 | W.PN.HOSP.TC ---
Today's Communication/Plan
-
Continue Mucinex and ipratropium
Low threshold to DC antibiotic
Replete potassium
Hold Lasix/give IVF
Tessalon Perles
Assessment / Plan
Assessment / Plan
#Acute viral bronchitis
-Presented with sore throat, fever, significant cough with bronchospasm
-Did have temperature up to 102 �F per history; started on amoxicillin upon arrival
-Has been 98% on 1 to 2 L O2, no signs of significant hypoxemia
-Was started on Mucinex and as needed ipratropium nebulizer
-Continue to trend CBC and temperature curve, monitor respiratory status
-Low threshold to DC antibiotic
-Start Tessalon Perles as needed
#Hypokalemia
-Likely related to chronic diuretics; Home medicines include KCl twice daily, likely chronic
-Will continue to monitor BMP and replete diuretics as needed
-Holding Lasix for now and providing supportive IVF
#Persistent AF
-Home medications include metoprolol succinate, amiodarone, and reduced dose Eliquis
-Was recently on dofetilide before being switched to amiodarone
-Heart rate currently within normal range
-Telemetry
#Chronic HFpEF
-Unclear etiology; Home regimen includes beta-diane and Lasix 80 mg twice daily
-Appeared hypovolemic upon arrival, home Lasix held and started on supportive IVF
-Will monitor on IVF for signs of hypoxemia
-Currently appears euvolemic
#Primary hypertension
-Home regimen includes metoprolol succinate, and Lasix though no first-line agent
-No known history of hypertensive systemic disease
-Blood pressure
#Peripheral vascular disease
#Chronic venous insufficiency
-No known obstructive PAD; does have venous insufficiency
-Not currently on statin therapy or antiplatelet agents
#Celiac's disease
#Collagenous colitis
-Home regimen includes budesonide for collagenous colitis history
-Otherwise avoids gluten due to celiac's
-Gluten-free diet, monitor bowel status
#Anxiety
-Remains on home alprazolam
#Osteoporosis
-Home regimen includes Prolia
Diet: Gluten-free
DVT prophylaxis: Home Eliquis
CODE STATUS: Full code
Anticipated Discharge: 24 - 48 hours
Subjective/Interval History
-
Date of Service: July 22, 2024
Seen and examined at the bedside. No acute events reported overnight. AFVSS on 1 to 2 L O2
Potassium this morning 3.3. Remainder of labs stable
States she still has significant cough though denies new complaints. States she is feeling better
Objective Data
-
Labs:
Laboratory Results
07/22/24
08:11
WBC 6.6
Hgb 11.9 L
Hct 36.5 L
Plt Count 171
Sodium Pending
Potassium Pending
Chloride Pending
Carbon Dioxide Pending
BUN Pending
Creatinine Pending
Glucose Pending
Calcium Pending
Total Bilirubin Pending
AST Pending
ALT Pending
Alkaline Phosphatase Pending
Vital Signs:
Vital Signs
Temp Pulse Resp BP Pulse Ox
100.2 F 74 16 138/56 98
07/22/24 07:35 07/22/24 08:02 07/22/24 08:02 07/22/24 07:35 07/22/24 07:35
I&O
07/21/24 07/22/24 07/23/24
06:59 06:59 06:59
Intake Total 480 / 480
Balance 480 / 480
Review of Systems
-
History Source: Patient
All other systems: Reviewed and negative
Physical Exam
-
General: Well Developed, No Apparent Distress and Comfortable
HEENT: Normocephalic, Atraumatic, Moist Mucous Membranes, Anicteric and Oxygen
Respiratory: Rhonchi and Non Labored Respirations; Negative Wheezes, Rales or Accessory Resp Muscle Use
Cardiac: Regular Rhythm and S1/S2; Negative Murmur, Rub or Gallop
GI: Soft, Nontender, Nondistended and Normal Bowel Sounds
Musculoskeletal: No Clubbing, No Cyanosis and No Edema
Neuro: AO x 3 and Nonfocal/Grossly Intact
Psych: Calm
Data Reviewed
-
Labs: Labs Reviewed by me, Discussed with Patient and Discussed with Family
[2024-07-22] MEDS: MUCINEX 1200 MG PO ×2 (09:24→20:45)
[2024-07-22] MEDS: PACERONE 400 MG PO ×2 (09:24→20:45)
[2024-07-22] MEDS: TOPROL XL 50 MG PO ×2 (09:24→20:45)
[2024-07-22] MEDS: AMOXIL 1000 MG PO ×3 (09:24→20:46)
[2024-07-22] MEDS: ELIQUIS 2.5 MG PO ×2 (09:24→20:44)
[2024-07-22] MEDS: ENTOCORT EC 6 MG PO (09:24)
[2024-07-22] MEDS: KCL 20 MEQ PO ×2 (09:25→20:44)
[2024-07-22] MEDS: THERAGRAN 1 TABLET PO (09:25)
[2024-07-22] MEDS: REFRESH EYE DROPS (PF) 1 DROPS BOTH EYES ×2 (09:25→20:45)
[2024-07-22 09:35] LABS: ALT (SGPT) 17 U/L (0-35); AST (SGOT) 24 U/L (14-36); Albumin 3.3 g/dl (3.5-5.0); Alkaline Phosphatase 43 U/L (38-126); Blood Urea Nitrogen 7 mg/dl (7-17); Calcium 7.1 mg/dl (8.4-10.2); Carbon Dioxide 26 mmol/L (22-30); Chloride 109 mmol/L (98-107); Estimated Creatinine Clearance 46 ml/min; Glucose 103 mg/dl (70-99); Potassium 3.3 mmol/L (3.5-5.1); Sodium 138 mmol/L (135-145); Total Bilirubin 0.6 mg/dl (0.2-1.3); Total Protein 5.5 g/dl (6.3-8.2); eGFR > 60.00
[2024-07-22] MEDS: TYLENOL 650 MG PO ×3 (09:37→22:55)
[2024-07-22 11:18] VITALS: BMI 21.1
[2024-07-22 11:35] VITALS: BP 104/45
[2024-07-22] MEDS: KLOR-CON 40 MEQ PO (12:45)
[2024-07-22] MEDS: TESSALON PERLES 100 MG PO ×2 (12:50→22:55)
[2024-07-22] MEDS: DICLOFENAC 1% TOPICAL GEL 100 GRAM TOPICAL ×2 (12:50→23:55)
[2024-07-22 15:35] VITALS: BP 107/56
[2024-07-22] MEDS: FIBERCON 1250 MG PO (18:07)
[2024-07-22 19:45] VITALS: BP 120/57
[2024-07-22] MEDS: XANAX 0.25 MG PO (20:46)
[2024-07-22 23:23] VITALS: BP 177/88
[2024-07-22] MEDS: LASIX 40 MG IV (23:55)
[2024-07-23] VITALS (7 sets, daily range): BP systolic 112–137; BP diastolic 64–92; PULSE 70; O2SAT 99; BMI 21.8
[2024-07-23] MEDS: CALDOLOR 104 MG IV (02:08)
[2024-07-23] MEDS: DECADRON 4 MG IV (02:33)
--- NOTE | 2024-07-23 06:09 | W.PN.UPDATE ---
Update Note
Progress Note Update
~2330�RN reached out that pts lungs were coarse throughout.�IVF d/c'd� Pt on 2L NC low 90s SPO2. �IV Lasix given.�
~0140�RN stated pts temp increased from 101.5F after Tylenol to 103F rectal with rigors. on assessment pt does not appear to be tremulous at this time. lungs:�w/ ex wheezing throughout-conversing without difficultylaying flat in bed.�No visible
diaphoresis pt. w/�minimal voiding post Lasix.�only 300ml on bladder scan. �x1�Decadron added-pt already on duonebs QID. Ice packs placed.�IV ibuprofen given x1 and Lactic added to morning blood work. Pt recently had blood cultures, flu and Covid
swabs on 07/21- no need to repeat at this time. f/u temp 98.2 @0400
[2024-07-23 06:30] LABS: % Basophils 0.2 % (0-2); % Immature Granulocytes 0.8 % (0-0.5); % Lymphocytes 4.5 % (20.5-51.1); % Monocytes 4.4 % (1.7-9.3); % Neutrophils 90.1 % (42.2-75.2); Absolute Immature Granulocytes 0.1 10^3/uL (0-0.05); Absolute Lymphocytes 0.6 10^3/uL (1.2-3.4); Absolute Monocytes 0.5 10^3/uL (0.1-0.6); Absolute Neutrophils 11.1 10^3/uL (1.4-6.5); Hematocrit 38.6 % (37.0-47.0); Hemoglobin 12.7 g/dL (12.0-16.0); Mean Corp Hgb Conc. 32.9 g/dL (33.0-37.0); Mean Corpuscular Hgb 34.2 pg (27.0-31.0); Mean Platelet Volume 10.1 fL (7.4-10.4); Nucleated Red Blood Cells % 0 %; Platelet Count 150 10^3/uL (130-400); Red Blood Cell Count 3.71 10^6/uL (4.20-5.40); Red Cell Dist. Width 13.5 % (11.5-14.5); White Blood Cell Count 12.3 10^3/uL (4.8-10.8)
[2024-07-23 07:01] LABS: Blood Urea Nitrogen 10 mg/dl (7-17); Calcium 8.1 mg/dl (8.4-10.2); Carbon Dioxide 21 mmol/L (22-30); Chloride 113 mmol/L (98-107); Estimated Creatinine Clearance 40 ml/min; Glucose 140 mg/dl (70-99); Potassium 5.1 mmol/L (3.5-5.1); Sodium 139 mmol/L (135-145); eGFR > 60.00
[2024-07-23] MEDS: ATROVENT NEBULES 0.5 MG INH ×4 (07:32→19:52)
[2024-07-23 07:54] LABS: Lactic Acid 2.6 mmol/L (0.7-2.0)
[2024-07-23] MEDS: MUCINEX 1200 MG PO ×2 (09:15→19:56)
[2024-07-23] MEDS: ENTOCORT EC 6 MG PO (09:16)
[2024-07-23] MEDS: AMOXIL 1000 MG PO (09:16)
[2024-07-23] MEDS: TOPROL XL 50 MG PO ×2 (09:16→19:55)
[2024-07-23] MEDS: ELIQUIS 2.5 MG PO ×2 (09:17→19:56)
[2024-07-23] MEDS: PACERONE 400 MG PO ×2 (09:17→19:56)
[2024-07-23] MEDS: KCL PO (09:17)
[2024-07-23] MEDS: THERAGRAN 1 TABLET PO (09:17)
[2024-07-23] MEDS: FLUSH (NSS) 1 FLUSH IV ×3 (09:18→17:10)
[2024-07-23] MEDS: REFRESH EYE DROPS (PF) 1 DROPS BOTH EYES ×2 (09:18→19:57)
--- NOTE | 2024-07-23 11:13 | W.PN.HOSP.TC ---
Today's Communication/Plan
-
see A/P
Assessment / Plan
Assessment / Plan
A/P:
# sepsis POA
# ?Acute viral bronchitis (presented with sore throat, fever, significant cough with bronchospasm)
# Acute hypoxic resp insufficiency
blood culture x2 from admission negative, Flu/COVID negative on admission
CT Chest: No acute findings within the chest. Mild bronchiectasis within both posterior lower lobes with small amount of peripheral atelectasis/scarring.
noted persistent fever, check repeat blood culture
Escalate amoxicillin to Zosyn
would like Lyme to be checked (pt denies to new rash, no known tick bite, but endorses to deer visiting frequently)
on 2L NC with sat 98%, wean O2 as tolerated
Cont Mucinex, as needed ipratropium nebulizer, Tessalon Perles as needed
ID CS
# Hypokalemia
# now mild hyperkalemia
Hypokalemia likely related to chronic diuretics;
Home medicines include KCl twice daily
Holding further potassium supplement with mild hyperkalemia at 5.1 today
Holding [employer] lasix and off further IVF
# Persistent AF
Home medications include metoprolol succinate, amiodarone, and reduced dose Eliquis
Was recently on dofetilide before being switched to amiodarone
Heart rate currently within normal range
Telemetry
# Chronic HFpEF
Unclear etiology; Home regimen includes beta-diane and Lasix 80 mg twice daily
Appeared hypovolemic upon arrival, home Lasix held and s/p IVF
Currently appears euvolemic
# Primary hypertension
Home regimen includes metoprolol succinate, and Lasix
No known history of hypertensive systemic disease
Monitor Blood pressure
# Peripheral vascular disease
# Chronic venous insufficiency
No known obstructive PAD; does have venous insufficiency
Not currently on statin therapy or antiplatelet agents
# Celiac's disease
# Collagenous colitis
Home regimen includes budesonide for collagenous colitis history
Otherwise avoids gluten due to celiac's
Gluten-free diet, monitor bowel status
# Anxiety
Remains on home alprazolam
# Osteoporosis
Home regimen includes Prolia
Diet: Gluten-free
DVT prophylaxis: Home Eliquis
CODE STATUS: Full code
Dispo: PT OT eval
DW RN
DW at bedside
total time 51 min
Anticipated Discharge: 24 - 48 hours
Subjective/Interval History
-
Date of Service: July 23, 2024
Objective Data
-
Labs:
Laboratory Results
07/23/24
06:20
WBC 12.3 H
Hgb 12.7
Hct 38.6
Plt Count 150
Sodium 139
Potassium 5.1 D
Chloride 113 H
Carbon Dioxide 21 L
BUN 10
Creatinine 0.8
Glucose 140 H
Calcium 8.1 L
Vital Signs:
Vital Signs
Temp Pulse Resp BP Pulse Ox
36.4 C 72 16 112/71 98
07/23/24 07:50 07/23/24 11:11 07/23/24 11:11 07/23/24 09:17 07/23/24 08:59
I&O
07/22/24 07/23/24 07/24/24
06:59 06:59 06:59
Intake Total 480 / 480
Output Total 300 / 300
Balance 480 / 480 -300 / -300
Review of Systems
-
History Source: Patient
Constitutional: Reports Fever
Respiratory: Reports Cough (mild)
Physical Exam
-
General: Well Developed, Comfortable, Respiratory Distress (mild) and Conversant
HEENT: Normocephalic, Atraumatic, Moist Mucous Membranes, Anicteric and Oxygen (2L NC)
Respiratory: Clear to Auscultation and Non Labored Respirations; Negative Wheezes, Rales, Crackles or Accessory Resp Muscle Use
Cardiac: Regular Rhythm and S1/S2; Negative Murmur, Rub or Gallop
GI: Soft, Nontender, Nondistended and Normal Bowel Sounds
Musculoskeletal: No Clubbing, No Cyanosis and No Edema
Neuro: Awake and Alert
Psych: Calm and Intact Judgement/Insight
Data Reviewed
-
CT Scan: Report Reviewed by me
Labs: Labs Reviewed by me
[2024-07-23] MEDS: ZOSYN 50 IV (12:15)
[2024-07-23] MEDS: TUMS CHEWABLE TABLET 200 MG PO ×2 (12:15→23:00)
--- NOTE | 2024-07-23 13:25 | CON.ID ---
Consultation
-
Date/Time Consultation Requested: July 23, 2024 1135
Date/Time Consultation Performed: July 23, 2024 1325
Requesting Provider: Dr. Felecia Burnham
Performing Provider: Dr. Carrie Perez
Reason for Consultation: Fever
Chief Complaint / Past History
Chief Complaint
Fever and cough
History of Present Illness
History obtained from the patient as well as from at bedside. She is an 84-year-old female with history of atrial fibrillation, heart failure with preserved EF, celiac disease, collagenous colitis who presented to the ER on the due to
weakness, persistent cough and fever. She was recently hospitalized from July 08 to July 14 with hypokalemia, lower extremity edema resolved with metolazone, dizziness, and E. coli in the urine which was treated with a course of antibiotic. She was
doing well but then developed cough with phlegm production few days after discharge. She had chills and presented to the ER on July 20. Patient was noted to be in atrial tachycardia and she was seen by workplace trainer and assessor who replaced the dofetilide with
amiodarone. Chest x-ray no acute change. Abdominal ultrasound unremarkable. She was discharged on amoxicillin for bronchitis. However patient did not improve with persistent cough. She became very weak requiring help ambulating to the bathroom.
Also had just shaking chills and subjective fever. She therefore came back to the ER on July 21. Temperature was 102.9. Again chest x-ray negative. July [address] showed bronchiectasis without acute findings within the chest. The outpatient
amoxicillin was continued. She continued to be febrile yesterday 101.5. Early this morning she spiked temperature 103.4 with shaking chills. Her white count increased from normal to 12.3. Her lactic acid also increased to 2.6. She received a
dose of Zosyn. Patient reports her cough is dry. No sinus congestion. No sore throat. No nausea or vomiting. Sometimes she has difficulty swallowing solid foods but no cough when she eats. She has muscular chest pain from coughing. No
diarrhea. No urine symptoms. No leg swelling. No ill contacts. No pets. No exposure to young children. No travel history.
Past History
Additional Past Medical History:
Hypertension
Heart failure with preserved EF
atrial fibrillation
Celiac disease
Collagenous colitis
Osteoporosis
Venous insufficiency
Additional Past Surgical History:
Bilateral carpal tunnel release
History of cardiac ablations x 2
Allergy History:
digoxin Allergy (Unknown, Verified 07/20/24 10:50)
toxicity...hospital overnight
gluten Allergy (Verified 07/20/24 10:50)
celiac disease
Sulfa (Sulfonamide Antibiotics) Allergy (Verified 07/20/24 10:50)
Tongue Swelling
SHELLEY Inhibitors Adverse Reaction (Verified 07/20/24 10:50)
COUGH
Dfzykvs-KSK-ZtQ Reductase Inhibitor (Hdmbzkl-Cak-Qcw Reductase Inhibitor) Adverse Reaction (Verified 07/20/24 10:50)
ACHY MUSCLES
Medications Reviewed: Yes
Current Antibiotics:
Status post amoxicillin x 2 days
Zosyn day 1
Social History
Tobacco: Non-Smoker
Alcohol: None
Drug: None
Personal:
Living: With Family
Family History
Family History: Not Pertinent
Review of Systems
Review of Systems
General: Fever, Chills and Change in Appetite
HEENT: Negative Sinus Problems, Headache or Pharyngitis
Cardiovascular: Negative Edema
Respiratory: Cough; Negative Dyspnea or Sputum Production
Gasteroenterology: Negative Nausea, Vomiting or Diarrhea
Genital / Urological: Negative Dysuria or Flank Pain
Endocrine: Weakness
Neurological: Negative Dizziness
All systems: All other systems were reviewed and were negative
Vital Signs
Temp Pulse Resp BP Pulse Ox
99.1 F 75 16 137/92 99
07/23/24 11:38 07/23/24 11:38 07/23/24 11:38 07/23/24 11:38 07/23/24 11:38
Selected Entries
07/22/24
23:30 07/23/24
01:30
Temp 101.5 F H 103.4 F H
Physical Exam
Physical Exam
Constitutional: No Acute Distress
Head: Other (No frontal or max or sinus tenderness)
Eyes: No Conjunctival Hemorrhage and Sclera Anicteric
Pharynx: Benign
Cardiovascular: Regular Rate and S1/S2
Pulmonary: Rales (Bilateral crackles)
Gastrointestinal: Soft, Non Tender, Non Distended and Normal Bowel Sounds
Genito-Urinary: Negative CVA Tenderness
Extremities: Venous Insufficiency (BLE); Negative Edema
Neurological: AO x 3
Lab / Diagnostic Study Results
07/23/24 06:20
07/23/24 06:20
Abs Immat Gran (auto) 0.1 10^3/uL (0-0.05) H 07/23/24 06:20
Absolute Neuts (auto) 11.1 10^3/uL (1.4-6.5) H 07/23/24 06:20
Absolute Lymphs (auto) 0.6 10^3/uL (1.2-3.4) L 07/23/24 06:20
Absolute Monos (auto) 0.5 10^3/uL (0.1-0.6) 07/23/24 06:20
Absolute Basos (auto) 0.0 10^3/uL (0-0.2) 07/23/24 06:20
Immature Gran % 0.8 % (0-0.5) H 07/23/24 06:20
Neutrophils % 90.1 % (42.2-75.2) H 07/23/24 06:20
Lymphocytes % 4.5 % (20.5-51.1) L 07/23/24 06:20
Monocytes % 4.4 % (1.7-9.3) 07/23/24 06:20
Eosinophils % 0.0 % (0-6) 07/23/24 06:20
Basophils % 0.2 % (0-2) 07/23/24 06:20
Lactic Acid 2.6 mmol/L (0.7-2.0) H 07/23/24 06:20
Ur Squamous Epith Cells 0-2 /LPF (Few) 07/21/24 08:38
Microbiology Results
Micro:
07/23/24 12:51 Blood Culture - Pending
Blood/Venous
07/23/24 11:38 Blood Culture - Pending
Blood/Venous
07/21/24 09:09 Blood Culture - Preliminary
Blood/Venous No Growth in 48 hours- Final report to follow
07/21/24 08:37 Blood Culture - Preliminary
Blood/Venous No Growth in 48 hours- Final report to follow
07/21/24 08:37 Influenza Types A & B (HEATH) - Final
Nasal Swab Negative for Influenza A & B, NAAT
Negative results must be combined with clinical observations
and patient history.
Nucleic Acid Amplification test (NAAT)performed on the
[employer] platform.
07/21/[address]: No acute findings within the chest. Mild bronchiectasis within both posterior lower lobes with small amount of peripheral atelectasis/scarring.
07/21/24 CXR: No radiographic evidence of acute cardiopulmonary abnormality.
07/20/24 CXR: No acute pulmonary abnormality appreciated. Minimal linear scarring at the left lung base, unchanged.
07/20/24 Abd US: No evidence of cholelithiasis, acute cholecystitis, or biliary ductal dilation. Pancreas was somewhat suboptimally visualized due to overlying bowel gas. Small cystic lesions were demonstrated, measuring up to 2.2 cm in diameter.
Pancreatic cystic lesions were better characterized on prior MRI abdomen dated 06/23/2023.
Assessment / Plan
# Fevers
# Acute leukocytosis - received steroid
# Persistent cough
- Admission CXR and Chest CT no acute findings
- Admission bcx' neg to date. UA neg.
- Suspect PNA. + crackles on exam today
- Repeat 2V-CXR to assess for blossoming PNA
- Check urine Legionella and S. pneumo ag
- DC Zosyn
- Start cefepime and po doxycycline
- Trend temp/wbc
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
Hypertension
Heart failure with preserved EF
atrial fibrillation on amiodarone
Celiac disease
Collagenous colitis
Osteoporosis
Venous insufficiency
--- NOTE | 2024-07-23 14:08 | CM ---
Met with patient and her family to obtain information for assessment. Patient stated that she lives with her spouse who was at bedside in a one story single home with 4 steps to enter. Patient described herself as independent with all of her ADLs,
personal care, dressing and bathing. 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 She drives and can get to her appointments and does do the shopping. She reported that she has a cane, a raised toilet seat with rails, grab bars in her
shower and a commode.
Patient has a prescription plan and uses, [facility] in [place] for all of her medications.
Her PCP is, Fabio Hawkins.
Patient was recently at and was discharged to [facility]. She stated that she did not stay as she did not like the environment and the staff was not helpful or friendly.
Patient stated that she was functionally doing a little better prior to this stay. She feels she will need a SNF again but does not want to go back to [facility]. She and her spouse will review options and CM will make referrals.
Plan: Case management will continue to follow and assist with discharge planning. SNF when stable.
[2024-07-23] MEDS: VIBRAMYCIN 100 MG PO ×2 (15:31→19:56)
--- NOTE | 2024-07-23 16:42 | PTCARENOTE ---
Pt AAO x3, SOTOMAYOR; OOB to chair/ambulated to BR with assist x1/walker, unsteady w/OOB activity. Fall prec initiated; pt calls for assistance as needed. VSS. Telemetry:NSR. Maintained on nc 2 lpm- pulse ox 99%, pt with slight SWEET, denies SOB. Abd
soft, rounded, antoinette PO. Voids on BSC/in BR. Pt aware of need for urine samples. Resting in chair at present, no c/o. Will continue to monitor.
[2024-07-23] MEDS: FIBERCON 1250 MG PO (17:09)
[2024-07-23] MEDS: STERILE WATER FOR INJECTION 10 ML IV ×2 (17:10→23:01)
[2024-07-23] MEDS: MAXIPIME 1000 MG IV ×2 (17:10→23:00)
[2024-07-23] MEDS: XANAX 0.25 MG PO (23:00)
[2024-07-24] VITALS (8 sets, daily range): BP systolic 103–137; BP diastolic 67–86; PULSE 75; O2SAT 97–100; BMI 22.0
[2024-07-24] MEDS: MAXIPIME 1000 MG IV ×4 (05:00→23:08)
[2024-07-24] MEDS: STERILE WATER FOR INJECTION 10 ML IV ×4 (05:00→23:08)
--- NOTE | 2024-07-24 06:06 | PTCARENOTE ---
Pt slept well overnight. No issues to report. vital signs stable. New IV placed this am. Pt denies any complaints at this time. Will continue to monitor.
[2024-07-24] MEDS: MUCINEX 1200 MG PO ×2 (07:40→19:28)
[2024-07-24] MEDS: VIBRAMYCIN 100 MG PO ×2 (07:41→19:28)
[2024-07-24] MEDS: REFRESH EYE DROPS (PF) 1 DROPS BOTH EYES ×2 (07:41→19:29)
[2024-07-24] MEDS: ENTOCORT EC 6 MG PO (07:41)
[2024-07-24] MEDS: PACERONE 400 MG PO ×2 (07:41→19:27)
[2024-07-24] MEDS: ELIQUIS 2.5 MG PO ×2 (07:41→19:28)
[2024-07-24] MEDS: TOPROL XL 50 MG PO ×2 (07:41→19:28)
[2024-07-24] MEDS: THERAGRAN 1 TABLET PO (07:42)
[2024-07-24 07:59] LABS: % Basophils 0.1 % (0-2); % Immature Granulocytes 0.5 % (0-0.5); % Lymphocytes 7.4 % (20.5-51.1); % Monocytes 4.8 % (1.7-9.3); % Neutrophils 87.2 % (42.2-75.2); Absolute Immature Granulocytes 0.1 10^3/uL (0-0.05); Absolute Lymphocytes 0.8 10^3/uL (1.2-3.4); Absolute Monocytes 0.5 10^3/uL (0.1-0.6); Absolute Neutrophils 9.7 10^3/uL (1.4-6.5); Hematocrit 36.3 % (37.0-47.0); Hemoglobin 12.1 g/dL (12.0-16.0); Mean Corp Hgb Conc. 33.3 g/dL (33.0-37.0); Mean Platelet Volume 11.4 fL (7.4-10.4); Nucleated Red Blood Cells % 0 %; Platelet Count 155 10^3/uL (130-400); Red Blood Cell Count 3.56 10^6/uL (4.20-5.40); Red Cell Dist. Width 13.6 % (11.5-14.5); White Blood Cell Count 11.2 10^3/uL (4.8-10.8)
[2024-07-24] MEDS: ATROVENT NEBULES 0.5 MG INH ×4 (07:59→20:36)
[2024-07-24 08:42] LABS: Blood Urea Nitrogen 18 mg/dl (7-17); Calcium 8.8 mg/dl (8.4-10.2); Carbon Dioxide 16 mmol/L (22-30); Chloride 111 mmol/L (98-107); Estimated Creatinine Clearance 46 ml/min; Glucose 101 mg/dl (70-99); Potassium 4.7 mmol/L (3.5-5.1); Sodium 136 mmol/L (135-145); eGFR > 60.00
--- NOTE | 2024-07-24 11:07 | W.PN.HOSP.TC ---
Today's Communication/Plan
-
Check proBNP today; daily weights trending up. Lasix 40mg IV today, then 40 mg PO BID starting tomorrow. CXR in AM.
Ultrasound of the Chest today; if there is enough pleural fluid, will consult IR for tap.
Continue to monitor potassium in the setting of restarting Lasix.
Assessment / Plan
Assessment / Plan
A/P:
# sepsis POA
# ?Acute viral bronchitis (presented with sore throat, fever, significant cough with bronchospasm)
# Acute hypoxic resp insufficiency
blood culture x2 from admission negative, Flu/COVID negative on admission
CT Chest: No acute findings within the chest. Mild bronchiectasis within both posterior lower lobes with small amount of peripheral atelectasis/scarring.
Noted persistent fever, check repeat blood culture(07/23); pending
Doxy and Cefepime per ID recs
would like Lyme to be checked (pt denies to new rash, no known tick bite, but endorses to deer visiting frequently)
on 2L NC with sat 98%, wean O2 as tolerated
Cont Mucinex, as needed ipratropium nebulizer, Tessalon Perles as needed
US Chest, if enough fluid consult IR to tap
# Hypokalemia
Hypokalemia likely related to chronic diuretics;
Home medicines include KCl twice daily
Mildly hyperkalemic yesterday, K 4.7 this AM.
Lasix and potassium initially held;
Lasix restarted today, monitor daily BMP; replete potassium as needed, will likely need her standing dose starting tomorrow
# Persistent AF
Home medications include metoprolol succinate, amiodarone, and reduced dose Eliquis
Was recently on dofetilide before being switched to amiodarone
Heart rate currently within normal range
Telemetry
# Chronic HFpEF
Unclear etiology; Home regimen includes beta-diane and Lasix 80 mg twice daily
Appeared hypovolemic upon arrival, home Lasix held and s/p IVF
CXR (07/23): Small bilateral pleural effusions, right larger than left. New.
BNP today, daily weights, Lasix 40mg IV; start PO tomorrow. CXR in AM.
# Primary hypertension
Home regimen includes metoprolol succinate, and Lasix
No known history of hypertensive systemic disease
Monitor Blood pressure
# Peripheral vascular disease
# Chronic venous insufficiency
No known obstructive PAD; does have venous insufficiency
Not currently on statin therapy or antiplatelet agents
# Celiac's disease
# Collagenous colitis
Home regimen includes budesonide for collagenous colitis history
Otherwise avoids gluten due to celiac's
Gluten-free diet, monitor bowel status
# Anxiety
Remains on home alprazolam
# Osteoporosis
Home regimen includes Prolia
Diet: Gluten-free
DVT prophylaxis: Home Eliquis
CODE STATUS: Full code
Dispo: PT OT eval
Anticipated Discharge: 24 - 48 hours
Subjective/Interval History
-
Date of Service: July 24, 2024
Patient seen and examined while resting comfortably in bed. Patient has no acute complaints this morning, but during interview does endorse becoming short of breath when laying flat. Otherwise denies, chest pains, shortness of breath, lower
extremity edema or fevers. Does cough while being interviewed.
Objective Data
-
Labs:
Laboratory Results
07/24/24
06:40
WBC 11.2 H
Hgb 12.1
Hct 36.3 L
Plt Count 155
Sodium 136
Potassium 4.7
Chloride 111 H
Carbon Dioxide 16 L
BUN 18 H
Creatinine 0.7
Glucose 101 H
Calcium 8.8
Vital Signs:
Vital Signs
Temp Pulse Resp BP Pulse Ox
97.5 F 72 16 133/86 98
07/24/24 07:34 07/24/24 08:02 07/24/24 08:02 07/24/24 07:41 07/24/24 08:02
I&O
07/23/24 07/24/24 07/25/24
06:59 06:59 06:59
Intake Total 1170 / 1170
Output Total 300 / 300
Balance -300 / -300 1170 / 1170
Review of Systems
-
History Source: Patient
All other systems: Reviewed and negative (see HPI. )
Physical Exam
-
General: No Apparent Distress, Comfortable and Conversant
HEENT: Normocephalic and Atraumatic
Respiratory: Crackles (heard diffusely)
Cardiac: Regular Rhythm and S1/S2
GI: Soft and Nontender
Musculoskeletal: No Clubbing, No Cyanosis and Other (1+ lower extremity pitting edema)
Skin: Warm
Neuro: Awake and Alert
Psych: Calm
Data Reviewed
-
Diagnostic Radiology: Image personally visualized and interpreted, Report Reviewed by me and Discussed with Patient
Labs: Labs Reviewed by me and Discussed with Patient
[2024-07-24] MEDS: LASIX 40 MG IV (11:16)
--- NOTE | 2024-07-24 12:08 | PTOTSP ---
Dysphagia Eval
No oral/pharyngeal dysphagia suspected. Patient reporting signs concerning for esophageal dysphagia (i.e., stasis in chest with dinner meal with subsequent burning sensation).
Recommend:
1. Regular, Thin
2. Medications as best tolerated
3. General aspiration and reflux precautions
4. Consider GI consult.
5. No further dysphagia tx with an CELLULAR BIOLOGIST warranted.
[2024-07-24 12:15] LABS: NT-proBNP 19000 pg/ml
[2024-07-24] MEDS: TYLENOL 650 MG PO ×2 (13:04→22:36)
[2024-07-24 13:11] LABS: Lyme Antibody Screen, EIA Negative (Negative)
--- NOTE | 2024-07-24 13:14 | W.PN.ID1 ---
Date of Service
Date of Service: July 24, 2024
Today's Communication
- Continue cefepime and po doxycycline (d2) for now
Assessment / Plan
# Fevers - resolving
# Acute leukocytosis (received steroid), trending down
# Persistent cough - improving
- Admission CXR and Chest CT no acute findings
- Admission bcx' neg to date. UA neg.
- 07/23 Repeat 2V-CXR: small R>L effusion.
CHF vs parapneumonic effusion
Of note pt responding to abx.
- Yesterday ordered urine Legionella and S. pneumo ag, but not yet done. Re-ordered.
- Continue cefepime and po doxycycline (d2) for now
- Trend temp/wbc
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
Hypertension
Heart failure with preserved EF
atrial fibrillation on amiodarone
Celiac disease
Collagenous colitis
Osteoporosis
Venous insufficiency
Chief Complaint
-: Fever and Other (cough)
Subjective / Review of Systems
She reports cough better today.
Vital Signs / Physical Exam
Vital Signs
Vital Signs
Temp Pulse Resp BP Pulse Ox
97.7 F 71 17 133/86 98
07/24/24 11:08 07/24/24 11:41 07/24/24 11:41 07/24/24 11:16 07/24/24 11:41
Physical Exam
Constitutional: No Acute Distress and Comfortable
Cardiovascular: Regular Rate and S1/S2
Pulmonary: Rales (mild crackles left base) and Other (Decrease BS right base)
Gastrointestinal: Soft, Non Tender and Non Distended
Extremities: Negative Edema
Neurological: AO x 3
Objective Data
Lab Data
Lab Results
07/24/24 06:40
07/24/24 06:40
Estimated Creat Clear 46 ml/min 07/24/24 06:40
Lactic Acid 2.6 mmol/L (0.7-2.0) H 07/23/24 06:20
Total Bilirubin 0.6 mg/dl (0.2-1.3) 07/22/24 08:11
AST 24 U/L (14-36) 07/22/24 08:11
ALT 17 U/L (0-35) 07/22/24 08:11
Alkaline Phosphatase 43 U/L (38-126) 07/22/24 08:11
Most recent labs reviewed.
Micro Results:
07/23/24 12:51 Blood Culture - Preliminary
Blood/Venous No Growth in 24 hours- Final report to follow
07/23/24 11:38 Blood Culture - Preliminary
Blood/Venous No Growth in 24 hours- Final report to follow
07/21/24 09:09 Blood Culture - Preliminary
Blood/Venous No Growth in 72 hours- Final report to follow
07/21/24 08:37 Blood Culture - Preliminary
Blood/Venous No Growth in 72 hours- Final report to follow
07/21/24 08:37 Influenza Types A & B (HEATH) - Final
Nasal Swab Negative for Influenza A & B, NAAT
Negative results must be combined with clinical observations
and patient history.
Nucleic Acid Amplification test (NAAT)performed on the
[employer] platform.
07/23/24 CXR: Small bilateral pleural effusions, right larger than left. New.
07/21/[address]: No acute findings within the chest. Mild bronchiectasis within both posterior lower lobes with small amount of peripheral atelectasis/scarring.
07/21/24 CXR: No radiographic evidence of acute cardiopulmonary abnormality.
07/20/24 CXR: No acute pulmonary abnormality appreciated. Minimal linear scarring at the left lung base, unchanged.
07/20/24 Abd US: No evidence of cholelithiasis, acute cholecystitis, or biliary ductal dilation. Pancreas was somewhat suboptimally visualized due to overlying bowel gas. Small cystic lesions were demonstrated, measuring up to 2.2 cm in diameter.
Pancreatic cystic lesions were better characterized on prior MRI abdomen dated 06/23/2023.
--- NOTE | 2024-07-24 13:51 | W.PN.UPDATE ---
Update Note
Progress Note Update
I saw and evaluated the patient. I reviewed the resident�s note and agree with findings and plan as documented in the resident�s note.
A/P:
# sepsis POA , unclear cause
# Acute hypoxic resp insufficiency
# ?Acute viral bronchitis (presented with sore throat, fever, significant cough with bronchospasm)
on 2L NC with sat 98%, wean O2 as tolerated
blood culture x2 from admission negative, Flu/COVID negative on admission
repeat blood cultures obtained 07/23 due to persistent fever, so far no growth
CT Chest: No acute findings within the chest. Mild bronchiectasis within both posterior lower lobes with small amount of peripheral atelectasis/scarring.
would like Lyme to be checked (pt denies to new rash, no known tick bite, but endorses to deer visiting frequently)
Lyme serology sent per request
ID CS for sepsis eval, changed ceftriaxone/zosyn to cefepime/doxycycline for ?CAP
Cont Mucinex, as needed ipratropium nebulizer, Tessalon Perles as needed
# small BL pleural effusion, R > L
Check R chest US and consider IR thoracentesis
check repeat CXR 07/25
# ?Acute on chronic HFpEF
Home regimen includes beta-diane and Lasix 80 mg twice daily
BNP [id number]
IV lasix 40 mg daily today, then PO lasix 40 mg BID to start 07/25
daily weight
Consider restarting standing potassium when resuming Lasix
# Hypokalemia
# now mild hyperkalemia
Hypokalemia likely related to chronic diuretics;
Home medicines include KCl twice daily
currently off potassium supplement, consider restarting standing potassium when resuming lasix
# Persistent AF
Home medications include metoprolol succinate, amiodarone, and reduced dose Eliquis
Was recently on dofetilide before being switched to amiodarone
Heart rate currently within normal range
Telemetry
# Primary hypertension
Home regimen includes metoprolol succinate, and Lasix
No known history of hypertensive systemic disease
Monitor Blood pressure
# Peripheral vascular disease
# Chronic venous insufficiency
No known obstructive PAD; does have venous insufficiency
Not currently on statin therapy or antiplatelet agents
# Celiac's disease
# Collagenous colitis
Home regimen includes budesonide for collagenous colitis history
Otherwise avoids gluten due to celiac's
Gluten-free diet, monitor bowel status
# Anxiety
Remains on home alprazolam
# Osteoporosis
Home regimen includes Prolia
Diet: Gluten-free
DVT prophylaxis: Home Eliquis
CODE STATUS: Full code
[facility]
total time spent with resident 51 min
[2024-07-24] MEDS: FIBERCON 1250 MG PO (16:35)
[2024-07-24] MEDS: TESSALON PERLES 100 MG PO (19:30)
[2024-07-24] MEDS: TUMS CHEWABLE TABLET 200 MG PO (19:30)
[2024-07-24] MEDS: DICLOFENAC 1% TOPICAL GEL 100 GRAM TOPICAL (22:31)
[2024-07-24] MEDS: XANAX 0.25 MG PO (22:36)
[2024-07-25] MEDS: PHENERGAN WITH CODEINE SYRUP 5 ML PO (00:09)
[2024-07-25 03:09] VITALS: BMI 21.4
[2024-07-25 03:21] VITALS: BP 98/55
[2024-07-25] MEDS: MAXIPIME 1000 MG IV ×3 (05:22→21:54)
[2024-07-25] MEDS: STERILE WATER FOR INJECTION 10 ML IV ×3 (05:23→21:53)
[2024-07-25 07:30] VITALS: BP 131/80
[2024-07-25] MEDS: ATROVENT NEBULES 0.5 MG INH ×4 (07:56→20:07)
[2024-07-25 08:01] LABS: Hematocrit 34.2 % (37.0-47.0); Hemoglobin 11.7 g/dL (12.0-16.0); Mean Corp Hgb Conc. 34.2 g/dL (33.0-37.0); Mean Corpuscular Hgb 34.4 pg (27.0-31.0); Mean Corpuscular Volume 100.6 fL (81.0-99.0); Mean Platelet Volume 11.1 fL (7.4-10.4); Platelet Count 182 10^3/uL (130-400); Red Cell Dist. Width 13.5 % (11.5-14.5); White Blood Cell Count 11.3 10^3/uL (4.8-10.8)
[2024-07-25 08:29] LABS: Blood Urea Nitrogen 28 mg/dl (7-17); Calcium 9.5 mg/dl (8.4-10.2); Carbon Dioxide 23 mmol/L (22-30); Chloride 108 mmol/L (98-107); Estimated Creatinine Clearance 32 ml/min; Glucose 96 mg/dl (70-99); Potassium 4.3 mmol/L (3.5-5.1); Sodium 136 mmol/L (135-145); eGFR 54.87
[2024-07-25 08:38] LABS: % Basophils 0.2 % (0-2); % Immature Granulocytes 0.6 % (0-0.5); % Lymphocytes 10.7 % (20.5-51.1); % Monocytes 6.8 % (1.7-9.3); % Neutrophils 81.7 % (42.2-75.2); Absolute Immature Granulocytes 0.1 10^3/uL (0-0.05); Absolute Lymphocytes 1.2 10^3/uL (1.2-3.4); Absolute Monocytes 0.8 10^3/uL (0.1-0.6); Absolute Neutrophils 9.3 10^3/uL (1.4-6.5); Nucleated Red Blood Cells % 0 %
[2024-07-25] MEDS: ENTOCORT EC 6 MG PO (10:24)
[2024-07-25] MEDS: THERAGRAN 1 TABLET PO (10:24)
[2024-07-25] MEDS: MUCINEX 1200 MG PO (10:24)
[2024-07-25] MEDS: VIBRAMYCIN 100 MG PO ×2 (10:24→20:12)
[2024-07-25] MEDS: PACERONE 400 MG PO ×2 (10:25→20:11)
[2024-07-25] MEDS: TOPROL XL 50 MG PO ×2 (10:25→20:12)
[2024-07-25] MEDS: LASIX 40 MG PO (10:25)
[2024-07-25] MEDS: ELIQUIS 2.5 MG PO ×2 (10:26→20:05)
[2024-07-25] MEDS: REFRESH EYE DROPS (PF) 1 DROPS BOTH EYES ×2 (10:26→20:09)
[2024-07-25] MEDS: FLUSH (NSS) 1 FLUSH IV ×2 (10:26→14:31)
[2024-07-25 11:15] VITALS: BP 143/84
--- NOTE | 2024-07-25 11:54 | PTCARENOTE ---
Accompanied Dr. Cavazos and Residents and Casemanagement when they rounded on patient. , Giles Alexander at bedside with patient. He states that he has some recollection of speaking to physicians as they are rounding, as does patient, but has
difficulty hearing and is not always relaying the information fully to his daughter. Requested that his daughter Valerie Mishra be the primary contact for updates and questions (patient in agreement). Spoke to daughter and updated her on this
information and that she will be receiving a call back from Dr. Cavazos and she will answer her clinical questions at that time.
[2024-07-25 12:48] VITALS: BMI 21.4
--- NOTE | 2024-07-25 13:01 | W.PN.ID1 ---
Date of Service
Date of Service: July 25, 2024
Today's Communication
Continue cefepime and doxy for now.
Assessment / Plan
# Fevers - resolved
# Acute leukocytosis (received steroid), trending down
# cough - improving daytime, worse at night: ?GERD, ?CHF
- Admission CXR and Chest CT no acute findings
- Admission bcx' neg to date. UA neg.
- 07/23 Repeat 2V-CXR: small R>L effusion.
CHF vs parapneumonic effusion
Of note pt responding to abx.
- urine Legionella and S. pneumo ag neg
- Continue cefepime and po doxycycline (d3) for now
- renally adjusted cefepime dosing for decreased CrCl
- anticipate transition cefepime to po abx tomorrow.
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
Hypertension
Heart failure with preserved EF
atrial fibrillation on amiodarone
Celiac disease
Collagenous colitis
Osteoporosis
Venous insufficiency
Chief Complaint
-: Fever and Other (cough)
Subjective / Review of Systems
Coughed most of the night. Cough improves during the day.
Vital Signs / Physical Exam
Vital Signs
Vital Signs
Temp Pulse Resp BP Pulse Ox
97.6 F 76 16 143/84 96
07/25/24 11:15 07/25/24 11:37 07/25/24 11:37 07/25/24 11:15 07/25/24 11:37
Physical Exam
Constitutional: No Acute Distress
Pulmonary: Other (Decreased bs right base, crackles left base)
Gastrointestinal: Soft, Non Tender, Non Distended and Normal Bowel Sounds
Extremities: Negative Edema
Neurological: AO x 3
Objective Data
Lab Data
Lab Results
07/25/24 07:18
06/03/25 07:18
Estimated Creat Clear 32 ml/min 07/25/24 07:18
Lactic Acid 2.6 mmol/L (0.7-2.0) H 07/23/24 06:20
Total Bilirubin 0.6 mg/dl (0.2-1.3) 07/22/24 08:11
AST 24 U/L (14-36) 07/22/24 08:11
ALT 17 U/L (0-35) 07/22/24 08:11
Alkaline Phosphatase 43 U/L (38-126) 07/22/24 08:11
Most recent labs reviewed.
Micro Results:
07/23/24 11:38 Blood Culture - Preliminary
Blood/Venous No Growth in 48 hours- Final report to follow
07/21/24 09:09 Blood Culture - Preliminary
Blood/Venous No Growth in 4 days- Final report to follow
07/21/24 08:37 Blood Culture - Preliminary
Blood/Venous No Growth in 4 days- Final report to follow
07/24/24 21:11 Legionella Urinary Antigen - Final
Urine Negative for Legionella pneumophila Serogroup 1 antigen.
A negative result does not rule out the possiblity of
Legionella infection due to other serogroups or species of
Legionella. Clinical correlation is recommended.
Streptococcus pneumoniae Antigen (M - Final
Negative for Streptococcus pneumoniae antigen.
A negative result does not exclude infection with
Streptococcus pneumoniae. Clinical correlation is
recommended.
07/23/24 12:51 Blood Culture - Preliminary
Blood/Venous No Growth in 24 hours- Final report to follow
07/21/24 08:37 Influenza Types A & B (HEATH) - Final
Nasal Swab Negative for Influenza A & B, NAAT
Negative results must be combined with clinical observations
and patient history.
Nucleic Acid Amplification test (NAAT)performed on the
[employer] platform.
07/23/24 CXR: Small bilateral pleural effusions, right larger than left. New.
07/21/[address]: No acute findings within the chest. Mild bronchiectasis within both posterior lower lobes with small amount of peripheral atelectasis/scarring.
07/21/24 CXR: No radiographic evidence of acute cardiopulmonary abnormality.
07/20/24 CXR: No acute pulmonary abnormality appreciated. Minimal linear scarring at the left lung base, unchanged.
07/20/24 Abd US: No evidence of cholelithiasis, acute cholecystitis, or biliary ductal dilation. Pancreas was somewhat suboptimally visualized due to overlying bowel gas. Small cystic lesions were demonstrated, measuring up to 2.2 cm in diameter.
Pancreatic cystic lesions were better characterized on prior MRI abdomen dated 06/23/2023.
[2024-07-25] MEDS: TYLENOL 650 MG PO (14:38)
[2024-07-25 15:25] VITALS: BP 131/77
--- NOTE | 2024-07-25 15:34 | CM ---
Patient seen at bedside with physicians and Cherelle Castro this am on . CM confirmed with patient and patient both requested that her daughter Valerie lynn [phone]/cell [phone] is to be the primary contact. Patient daughter
spoke with CM and physician and requested referrals to [facility] and [facility]. CM sent referrals and await response. CM will continue to follow for discharge planning needs.
Plan; SNF
--- NOTE | 2024-07-25 16:26 | PTCARENOTE ---
Pt AAO x3, sl anxious at times. SOTOMAYOR;OOB to chair /BSC with assist x1; occ uses walker; antoinette well, sl unsteady w/OOB activity; denies dizziness. VSS. On room air- pulse ox 97%, pt with sight SWEET; denies SOB; has occ dry cough. Abd soft, rounded,
antoinette PO. Voids on BSC without difficulty. Resting in bed at present, no c/o. Will continue to monitor.
[2024-07-25] MEDS: PROTONIX 40 MG PO (16:28)
[2024-07-25] MEDS: LASIX 80 MG PO (16:28)
[2024-07-25] MEDS: ROBITUSSIN AC 10 ML PO ×2 (16:32→21:56)
--- NOTE | 2024-07-25 17:39 | W.PN.HOSP.TC ---
Addendum entered and electronically signed by Rosalinda Cavazos MD 07/25/24 18:55:
I saw and evaluated the patient independently. I reviewed the resident�s note and agree with findings and plan as documented by Dr. Rain.
Patient complained she had a bad night due to coughing.
GENERAL: well developed, well nourished, female in no apparent distress
HEENT: NC/AT
HEART: irreg irreg
LUNGS : clear to auscultation bilaterally
ABDOM: soft, nontender, nondistended, + bowel sounds
EXT: no cyanosis, clubbing, or edema
NEUROLOGIC: grossly intact
sepsis POA with Acute hypoxic resp insufficiency --likely due to viral bronchitis--cough could be due to bronchitis, GERD, asthma--blood culture x2 from admission negative, Flu/COVID negative on admission--CT chest and multiple chest x-rays without
acute findings--cultures neg--apprec ID--abx as per ID, hopeful transition to oral tomorrow--cont robitussin with codeine, added protonix/pepcid (daughter says she takes a PPI at home, not on med list)--Lyme neg--off O2--restarted lasix/Kcl
supplementation
Hypokalemia-- Hypokalemia likely related to chronic diuretics; Home medicines include KCl twice daily--Potassium stable--Lasix and potassium initially held; patient now on home dose of Lasix.
Persistent AF--Home medications include metoprolol succinate, amiodarone, and reduced dose Eliquis--Was recently on dofetilide before being switched to amiodarone
Chronic HFpEF--Unclear etiology; Home regimen includes beta-diane and Lasix 80 mg twice daily--Appeared hypovolemic upon arrival, home Lasix held and s/p IVF--Home regimen restarted.
Primary hypertension--Home regimen includes metoprolol succinate, and Lasix--No known history of hypertensive systemic disease
Peripheral vascular disease/Chronic venous insufficiency--No known obstructive PAD; does have venous insufficiency--Not currently on statin therapy or antiplatelet agents
Celiac's disease/Collagenous colitis--cont budesonide--Gluten-free diet, monitor bowel status
Anxiety--Remains on home alprazolam
Osteoporosis--Home regimen includes Prolia
DVT proph--Home Eliquis
CODE STATUS--Full code
Called daughter at daughter's request--daughter is listed as second contact and pt , who has been at the bedside has been informed and spoken to from previous physicians, apparently has not been updating his daughter--changed contact order to
make daughter first--spent about 30 minutes on the phone with her updating clinical status
Original Note:
Today's Communication/Plan
-
.
Assessment / Plan
Assessment / Plan
A/P:
# sepsis POA
# ?Acute viral bronchitis (presented with sore throat, fever, significant cough with bronchospasm)
# Acute hypoxic resp insufficiency
blood culture x2 from admission negative, Flu/COVID negative on admission
CT Chest (07/21): No acute findings within the chest. Mild bronchiectasis within both posterior lower lobes with small amount of peripheral atelectasis/scarring.
Noted persistent fever, repeat blood culture(07/23); no growth in 48 hours
Doxy and Cefepime per ID recs; today is day 2; ID plans to transition to oral tomorrow
would like Lyme to be checked (pt denies to new rash, no known tick bite, but endorses to deer visiting frequently); negative serologies
on 2L NC with sat 98%, wean O2 as tolerated
US chest (07/24): Small right pleural effusion
CXR (07/25): Small right pleural effusion, mild bibasilar atelectasis versus scarring, pneumonia cannot be excluded.
Tessalon Perles as needed
Protonix and famotidine added, nighttime cough could be indicative of reflux
Return patient standing home dose of Lasix, continue to monitor BMP for potassium. Restart patient home dose of potassium supplementation.
# Hypokalemia
Hypokalemia likely related to chronic diuretics;
Home medicines include KCl twice daily
Potassium stable.
Lasix and potassium initially held; patient now on home dose of Lasix.
Lasix restarted today, monitor daily BMP; replete potassium as needed. Restart patient's home potassium supplementation regimen.
# Persistent AF
Home medications include metoprolol succinate, amiodarone, and reduced dose Eliquis
Was recently on dofetilide before being switched to amiodarone
Heart rate currently within normal range
Telemetry
# Chronic HFpEF
Unclear etiology; Home regimen includes beta-diane and Lasix 80 mg twice daily
Appeared hypovolemic upon arrival, home Lasix held and s/p IVF
Home regimen restarted.
# Primary hypertension
Home regimen includes metoprolol succinate, and Lasix
No known history of hypertensive systemic disease
Monitor Blood pressure
# Peripheral vascular disease
# Chronic venous insufficiency
No known obstructive PAD; does have venous insufficiency
Not currently on statin therapy or antiplatelet agents
# Celiac's disease
# Collagenous colitis
Home regimen includes budesonide for collagenous colitis history
Otherwise avoids gluten due to celiac's
Gluten-free diet, monitor bowel status
# Anxiety
Remains on home alprazolam
# Osteoporosis
Home regimen includes Prolia
Diet: Gluten-free
DVT prophylaxis: Home Eliquis
CODE STATUS: Full code
Dispo: PT OT eval
Anticipated Discharge: 24 - 48 hours
Subjective/Interval History
-
Date of Service: July 25, 2024
Patient seen examined while resting comfortably in bed. Patient is at bedside. Patient states that last night she had trouble sleeping due to coughing. Per patient, the coughing is only worse at night and she does not feel the need to
cough during the day. Endorses decreased swelling and denies shortness of breath or orthopnea. Weight down 1.5 kg since Lasix restart.
Objective Data
-
Labs:
Laboratory Results
07/25/24
07:18
WBC 11.3 H
Hgb 11.7 L
Hct 34.2 L
Plt Count 182
Sodium 136
Potassium 4.3
Chloride 108 H
Carbon Dioxide 23
BUN 28 H
Creatinine 1.0
Glucose 96
Calcium 9.5
Vital Signs:
Vital Signs
Temp Pulse Resp BP Pulse Ox
98.1 F 68 18 131/77 97
07/25/24 15:25 07/25/24 16:28 07/25/24 15:25 07/25/24 16:28 07/25/24 16:26
I&O
07/24/24 07/25/24 07/26/24
06:59 06:59 06:59
Intake Total 1170 / 1170 1960 / 1960
Output Total 1450 / 1450
Balance 1170 / 1170 510 / 510
Review of Systems
-
History Source: Patient
Constitutional: Denies Fever
Respiratory: Reports Cough; Denies Trouble Breathing
Cardiac: Reports No Symptoms
Neuro: Reports No Symptoms
Physical Exam
-
General: No Apparent Distress and Conversant
HEENT: Normocephalic, Atraumatic and Moist Mucous Membranes
Respiratory: Crackles (Bilateral)
Cardiac: Regular Rhythm and S1/S2
GI: Soft and Nontender
Musculoskeletal: No Clubbing, No Cyanosis and No Edema
Skin: Warm and Dry
Neuro: Awake, Alert and Oriented
Psych: Calm
Data Reviewed
-
Diagnostic Radiology: Image personally visualized and interpreted, Report Reviewed by me and Discussed with Patient
Ultrasound: Report Reviewed by me and Discussed with Patient
Labs: Labs Reviewed by me and Discussed with Patient
[2024-07-25] MEDS: FIBERCON 1250 MG PO (17:42)
[2024-07-25] MEDS: MUCINEX 600 MG PO (20:08)
[2024-07-25] MEDS: XANAX 0.25 MG PO (21:53)
[2024-07-25] MEDS: PEPCID 20 MG PO (21:53)
[2024-07-25 23:34] VITALS: BP 139/75
[2024-07-25] MEDS: DICLOFENAC 1% TOPICAL GEL 100 GRAM TOPICAL (23:59)
[2024-07-26] MEDS: MIRALAX 17 GRAMS PO (00:11)
[2024-07-26] MEDS: MAXIPIME 1000 MG IV (05:44)
[2024-07-26] MEDS: STERILE WATER FOR INJECTION 10 ML IV (05:44)
[2024-07-26 06:00] VITALS: BMI 20.4
[2024-07-26 07:30] VITALS: BP 127/69
[2024-07-26] MEDS: ATROVENT NEBULES 0.5 MG INH ×3 (08:00→19:40)
[2024-07-26 08:09] LABS: Hemoglobin 13.2 g/dL (12.0-16.0); Mean Corp Hgb Conc. 33.8 g/dL (33.0-37.0); Mean Corpuscular Hgb 33.8 pg (27.0-31.0); Mean Platelet Volume 11.1 fL (7.4-10.4); Platelet Count 231 10^3/uL (130-400); Red Cell Dist. Width 13.1 % (11.5-14.5); White Blood Cell Count 11.9 10^3/uL (4.8-10.8)
[2024-07-26 08:10] LABS: Blood Urea Nitrogen 29 mg/dl (7-17); Calcium 9.8 mg/dl (8.4-10.2); Carbon Dioxide 26 mmol/L (22-30); Chloride 103 mmol/L (98-107); Estimated Creatinine Clearance 32 ml/min; Glucose 94 mg/dl (70-99); Potassium 3.2 mmol/L (3.5-5.1); Sodium 140 mmol/L (135-145); eGFR 54.87
--- NOTE | 2024-07-26 08:32 | W.PN.HOSP.TC ---
Addendum entered and electronically signed by Rosalinda Cavazos MD 07/26/24 17:00:
I saw and evaluated the patient independently. I reviewed the resident�s note and agree with findings and plan as documented by Dr. Rain.
Patient said night better
GENERAL: well developed, well nourished, female in no apparent distress
HEENT: NC/AT
HEART: irreg irreg
LUNGS : clear to auscultation bilaterally
ABDOM: soft, nontender, nondistended, + bowel sounds
EXT: no cyanosis, clubbing, or edema
NEUROLOGIC: grossly intact
sepsis POA with Acute hypoxic resp insufficiency --likely due to viral bronchitis--cough could be due to bronchitis, GERD, asthma--blood culture x2 from admission negative, Flu/COVID negative on admission--CT chest and multiple chest x-rays without
acute findings--cultures neg--apprec ID--abx as per ID, hopeful transition to oral tomorrow and continue through 07/29--cont Robitussin with codeine, added protonix/pepcid (daughter says she takes a PPI at home, not on med list)--Lyme neg--off
O2--restarted lasix/Kcl supplementation
Hypokalemia-- Hypokalemia likely related to chronic diuretics; Home medicines include KCl twice daily--Potassium stable--Lasix and potassium initially held; patient now on home dose of Lasix, restart potassium supplements
Persistent AF--Home medications include metoprolol succinate, amiodarone, and reduced dose Eliquis--Was recently on dofetilide before being switched to amiodarone
Chronic HFpEF--Unclear etiology; Home regimen includes beta-diane and Lasix 80 mg twice daily--Appeared hypovolemic upon arrival, home Lasix held and s/p IVF--Home regimen restarted.
Primary hypertension--Home regimen includes metoprolol succinate, and Lasix--No known history of hypertensive systemic disease
Peripheral vascular disease/Chronic venous insufficiency--No known obstructive PAD; does have venous insufficiency--Not currently on statin therapy or antiplatelet agents
Celiac's disease/Collagenous colitis--cont budesonide--Gluten-free diet, monitor bowel status
Anxiety--Remains on home alprazolam
Osteoporosis--Home regimen includes Prolia
DVT proph--Home Eliquis
CODE STATUS--Full code
anticipate d/c tomorrow to SNF
Original Note:
Today's Communication/Plan
-
.
Assessment / Plan
Assessment / Plan
A/P:
# sepsis POA
# ?Acute viral bronchitis (presented with sore throat, fever, significant cough with bronchospasm)
# Acute hypoxic resp insufficiency
blood culture x2 from admission negative, Flu/COVID negative on admission
CT Chest (07/21): No acute findings within the chest. Mild bronchiectasis within both posterior lower lobes with small amount of peripheral atelectasis/scarring.
Noted persistent fever, repeat blood culture(07/23); no growth in 72 hours; Legionella, strep pneumo urinary antigen negative
ID: Transition cefepime to cefdinir 300 mg p.o. twice daily through 07/29, continue p.o. doxycycline 100 mg p.o. twice daily through 07/29
Lyme negative serologies
Saturating well on room air
US chest (07/24): Small right pleural effusion
CXR (07/25): Small right pleural effusion, mild bibasilar atelectasis versus scarring, pneumonia cannot be excluded.
Tessalon Perles as needed
Protonix and famotidine added, nighttime cough could be indicative of reflux (improvement since start of this intervention)
Continue guaifenesin/codeine (improvement since starting this intervention)
# Hypokalemia
Potassium 3.2 this morning down from 4.3
Hypokalemia likely related to chronic diuretics;
Home medicines include KCl twice daily
Lasix and potassium initially held; patient now on home dose of Lasix.
Lasix restarted yesterday. Continue home Lasix regimen. Patient received 40 mEq K stat, then start patient's home potassium supplementation regimen this evening.
# Persistent AF
Home medications include metoprolol succinate, amiodarone, and reduced dose Eliquis
Was recently on dofetilide before being switched to amiodarone
Heart rate currently within normal range
# Chronic HFpEF
Unclear etiology; Home regimen includes beta-diane and Lasix 80 mg twice daily
Appeared hypovolemic upon arrival, home Lasix held and s/p IVF
Home regimen restarted.
Return patient standing home dose of Lasix, continue to monitor BMP for potassium. Restart patient home dose of potassium supplementation.
# Primary hypertension
Home regimen includes metoprolol succinate, and Lasix
No known history of hypertensive systemic disease
Monitor Blood pressure
# Peripheral vascular disease
# Chronic venous insufficiency
No known obstructive PAD; does have venous insufficiency
Not currently on statin therapy or antiplatelet agents
# Celiac's disease
# Collagenous colitis
Home regimen includes budesonide for collagenous colitis history
Otherwise avoids gluten due to celiac's
Gluten-free diet, monitor bowel status
# Anxiety
Remains on home alprazolam
# Osteoporosis
Home regimen includes Prolia
# Constipation
Patient has a history of microscopic colitis
Notes alternating bouts of constipation and diarrhea
No BM in 3 days, start bowel regimen, monitor for BM
Diet: Gluten-free
DVT prophylaxis: Home Eliquis
CODE STATUS: Full code
Dispo: PT OT eval
Anticipated Discharge: 24 - 48 hours
Subjective/Interval History
-
Date of Service: July 26, 2024
Patient seen and examined resting comfortably in chair, is at bedside. Patient states that she had a much more comfortable night last night, still has some residual coughing, however noticed an improvement in her cough that allowed her to
sleep. Additionally patient states that she is able to take a much deeper breath today when compared to yesterday. When patient was visited later in the morning, patient endorsed that she started coughing a little bit again.
Objective Data
-
Labs:
Laboratory Results
07/26/24
07:07
WBC 11.9 H
Hgb 13.2
Hct 39.0
Plt Count 231 D
Sodium 140
Potassium 3.2 L D
Chloride 103
Carbon Dioxide 26
BUN 29 H
Creatinine 1.0
Glucose 94
Calcium 9.8
Vital Signs:
Vital Signs
Temp Pulse Resp BP Pulse Ox
97.5 F 65 16 127/69 97
07/26/24 07:30 07/26/24 07:30 07/26/24 07:30 07/26/24 07:30 07/26/24 07:30
I&O
07/25/24 07/26/24 07/27/24
06:59 06:59 06:59
Intake Total 1960 / 1959 560 / 560
Output Total 1450 / 1450 2175 / 2175
Balance 510 / 510 560 / 560 -2175 / -2175
Review of Systems
-
History Source: Patient
Constitutional: Reports No Symptoms
Respiratory: Reports Cough (Improved)
Cardiac: Reports No Symptoms
Musculoskeletal: Reports No Symptoms; Denies Edema
Neuro: Reports No Symptoms
Physical Exam
-
General: Comfortable and Conversant
HEENT: Normocephalic, Atraumatic and Moist Mucous Membranes
Respiratory: Crackles (Improved from yesterday)
Cardiac: Regular Rhythm and S1/S2
GI: Soft and Nontender
Musculoskeletal: No Clubbing, No Cyanosis and Other (Trace edema of the bilateral lower extremities)
Skin: Warm and Dry
Neuro: Awake, Alert and Oriented
Psych: Calm
[2024-07-26] MEDS: ENTOCORT EC 6 MG PO (09:29)
[2024-07-26] MEDS: MUCINEX 600 MG PO ×2 (09:29→20:39)
[2024-07-26] MEDS: VIBRAMYCIN 100 MG PO ×2 (09:29→20:38)
[2024-07-26] MEDS: PACERONE 400 MG PO ×2 (09:30→20:38)
[2024-07-26] MEDS: TOPROL XL 50 MG PO ×2 (09:30→20:39)
[2024-07-26] MEDS: ELIQUIS 2.5 MG PO ×2 (09:31→20:38)
[2024-07-26] MEDS: THERAGRAN 1 TABLET PO (09:31)
[2024-07-26] MEDS: KCL 20 MEQ PO ×2 (09:31→20:39)
[2024-07-26] MEDS: REFRESH EYE DROPS (PF) 1 DROPS BOTH EYES ×2 (09:31→20:38)
[2024-07-26] MEDS: PROTONIX 40 MG PO (09:32)
--- NOTE | 2024-07-26 10:28 | W.PN.ID1 ---
Date of Service
Date of Service: July 26, 2024
Today's Communication
- Transition cefepime to to cefdinir 300mg po bid through 07/29
- Continue po doxycycline 100mg po bid through 07/29.
Assessment / Plan
# Fevers - resolved
# Acute leukocytosis (received steroid), trending down
# cough - improving daytime, worse at night: ?GERD, ?CHF
# Possible PNA
- Admission CXR and Chest CT no acute findings
- Admission bcx' neg to date. UA neg.
- 07/23 Repeat 2V-CXR: small R effusion.
-07/25 CXR new mild bibasilar atelectaisis
- urine Legionella and S. pneumo ag neg
- Transition cefepime to to cefdinir 300mg po bid through 07/29
- Continue po doxycycline 100mg po bid through 07/29.
# Conditions CHIEF PILOT
Hypertension
Heart failure with preserved EF
atrial fibrillation on amiodarone
Celiac disease
Collagenous colitis
Osteoporosis
Venous insufficiency
Chief Complaint
-: Fever and Other (cough)
Subjective / Review of Systems
Not coughing as much last night.
Vital Signs / Physical Exam
Vital Signs
Vital Signs
Temp Pulse Resp BP Pulse Ox
97.5 F 65 16 127/69 97
07/26/24 07:30 07/26/24 09:30 07/26/24 08:00 07/26/24 09:30 07/26/24 08:00
Physical Exam
Constitutional: No Acute Distress and Comfortable
Pulmonary: Rales (bibase crackles)
Gastrointestinal: Soft, Non Tender and Non Distended
Extremities: Negative Edema
Neurological: AO x 3
Objective Data
Lab Data
Lab Results
07/26/24 07:07
07/26/24 07:07
Estimated Creat Clear 32 ml/min 07/26/24 07:07
Lactic Acid 2.6 mmol/L (0.7-2.0) H 07/23/24 06:20
Total Bilirubin 0.6 mg/dl (0.2-1.3) 07/22/24 08:11
AST 24 U/L (14-36) 07/22/24 08:11
ALT 17 U/L (0-35) 07/22/24 08:11
Alkaline Phosphatase 43 U/L (38-126) 07/22/24 08:11
Most recent labs reviewed.
Micro Results:
07/21/24 09:09 Blood Culture - Final
Blood/Venous No Growth - Final Report
07/21/24 08:37 Blood Culture - Final
Blood/Venous No Growth - Final Report
07/23/24 12:51 Blood Culture - Preliminary
Blood/Venous No Growth in 48 hours- Final report to follow
07/23/24 11:38 Blood Culture - Preliminary
Blood/Venous No Growth in 48 hours- Final report to follow
07/24/24 21:11 Legionella Urinary Antigen - Final
Urine Negative for Legionella pneumophila Serogroup 1 antigen.
A negative result does not rule out the possiblity of
Legionella infection due to other serogroups or species of
Legionella. Clinical correlation is recommended.
Streptococcus pneumoniae Antigen (M - Final
Negative for Streptococcus pneumoniae antigen.
A negative result does not exclude infection with
Streptococcus pneumoniae. Clinical correlation is
recommended.
07/21/24 08:37 Influenza Types A & B (HEATH) - Final
Nasal Swab Negative for Influenza A & B, NAAT
Negative results must be combined with clinical observations
and patient history.
Nucleic Acid Amplification test (NAAT)performed on the
[employer] platform.
07/25/24 CXR: Small right pleural effusion. Stable. Mild bibasilar atelectasis versus scarring. Developing pneumonia cannot be excluded. New
07/23/24 CXR: Small bilateral pleural effusions, right larger than left. New.
07/21/[address]: No acute findings within the chest. Mild bronchiectasis within both posterior lower lobes with small amount of peripheral atelectasis/scarring.
07/21/24 CXR: No radiographic evidence of acute cardiopulmonary abnormality.
07/20/24 CXR: No acute pulmonary abnormality appreciated. Minimal linear scarring at the left lung base, unchanged.
07/20/24 Abd US: No evidence of cholelithiasis, acute cholecystitis, or biliary ductal dilation. Pancreas was somewhat suboptimally visualized due to overlying bowel gas. Small cystic lesions were demonstrated, measuring up to 2.2 cm in diameter.
Pancreatic cystic lesions were better characterized on prior MRI abdomen dated 06/23/2023.
[2024-07-26] MEDS: OMNICEF 300 MG PO ×2 (11:51→20:38)
[2024-07-26] MEDS: ROBITUSSIN AC 10 ML PO ×2 (11:55→20:40)
[2024-07-26] MEDS: ATROVENT NEBULES INH (12:11)
[2024-07-26] MEDS: TUMS CHEWABLE TABLET 200 MG PO ×2 (12:13→20:34)
--- NOTE | 2024-07-26 14:50 | CM ---
Addendum entered by Loyda Marcelo 07/26/24 15:26:
CM updated Yuliet at [facility] and plan is for transfer tomorrow pending physician assessment. Phone for report [phone]/fax [phone].
Auth;
Certified in total
Auth number [id number]
start date 07/26/24 - LCD/NRD 08/01/24
Original Note:
Patient seen at bedside with physicians on . patient reviewed snf options that have agreed to accept and requested [facility]. CM will start auth. Patient accepted by Yuliet; [phone] [facility] /NPI for Karthik Maxwell
[id number]. Cm will continue to follow for discharge planning needs.
Plan; SNF pending Auth.
--- NOTE | 2024-07-26 15:01 | CM ---
Addendum entered by Loyda Marcelo 07/27/24 13:43:
Phone for report [phone]/fax [phone].
Original Note:
Pt accepted at [facility]
Accepting MD: Jorge NPI [id number]
Initiated skilled auth through [employer]
Certified in total
Auth number [id number]
start date 07/26/24 - LCD/NRD 08/01/24
[2024-07-26 15:10] VITALS: BP 123/60; PULSE 68; O2SAT 95
[2024-07-26 15:27] VITALS: BP 123/70; PULSE 68; O2SAT 95
[2024-07-26 15:35] VITALS: BP 122/70
[2024-07-26] MEDS: KCL 40 MEQ PO (16:12)
[2024-07-26] MEDS: LASIX PO (16:18)
[2024-07-26] MEDS: LASIX 80 MG PO (16:18)
[2024-07-26] MEDS: FIBERCON 1250 MG PO (16:20)
[2024-07-26] MEDS: PEPCID 20 MG PO (20:40)
[2024-07-26] MEDS: XANAX 0.25 MG PO (20:40)
[2024-07-26] MEDS: SENOKOT-S 1 TABLET PO (20:40)
[2024-07-26] MEDS: DICLOFENAC 1% TOPICAL GEL 100 GRAM TOPICAL (20:40)
[2024-07-26 23:00] VITALS: BP 135/71
[2024-07-27 06:00] VITALS: BMI 19.9
[2024-07-27 07:14] VITALS: BP 119/62
[2024-07-27 07:39] LABS: Hematocrit 39.1 % (37.0-47.0); Mean Corp Hgb Conc. 33.2 g/dL (33.0-37.0); Mean Corpuscular Hgb 33.9 pg (27.0-31.0); Mean Corpuscular Volume 102.1 fL (81.0-99.0); Mean Platelet Volume 11.3 fL (7.4-10.4); Platelet Count 248 10^3/uL (130-400); Red Blood Cell Count 3.83 10^6/uL (4.20-5.40); Red Cell Dist. Width 13.2 % (11.5-14.5); White Blood Cell Count 11.6 10^3/uL (4.8-10.8)
[2024-07-27] MEDS: ATROVENT NEBULES 0.5 MG INH ×2 (07:50→11:17)
[2024-07-27 08:24] LABS: Blood Urea Nitrogen 30 mg/dl (7-17); Calcium 10.4 mg/dl (8.4-10.2); Carbon Dioxide 32 mmol/L (22-30); Chloride 103 mmol/L (98-107); Estimated Creatinine Clearance 31 ml/min; Glucose 107 mg/dl (70-99); Magnesium 1.6 mg/dl (1.6-2.3); Potassium 3.7 mmol/L (3.5-5.1); Sodium 143 mmol/L (135-145); eGFR 54.87
[2024-07-27] MEDS: PACERONE 400 MG PO (09:36)
[2024-07-27] MEDS: LASIX 80 MG PO (09:36)
[2024-07-27] MEDS: PROTONIX 40 MG PO (09:37)
[2024-07-27] MEDS: MUCINEX 600 MG PO (09:37)
[2024-07-27] MEDS: VIBRAMYCIN 100 MG PO (09:37)
[2024-07-27] MEDS: ELIQUIS 2.5 MG PO (09:37)
[2024-07-27] MEDS: OMNICEF 300 MG PO (09:37)
[2024-07-27] MEDS: ENTOCORT EC 6 MG PO (09:37)
[2024-07-27] MEDS: REFRESH EYE DROPS (PF) 1 DROPS BOTH EYES (09:38)
[2024-07-27] MEDS: KCL 20 MEQ PO (09:38)
[2024-07-27] MEDS: THERAGRAN 1 TABLET PO (09:38)
[2024-07-27] MEDS: TOPROL XL 50 MG PO (09:38)
[2024-07-27] MEDS: SENOKOT-S 1 TABLET PO (10:02)
[2024-07-27] MEDS: ROBITUSSIN AC 10 ML PO (10:02)
--- NOTE | 2024-07-27 10:21 | W.PN.HOSP.TC ---
Addendum entered and electronically signed by Rosalinda Cavazos MD 07/27/24 18:50:
I saw and evaluated the patient independently. I reviewed the resident�s note and agree with findings and plan as documented by Dr. Rain.
GENERAL: well developed, well nourished, female in no apparent distress
HEENT: NC/AT
HEART: irreg irreg
LUNGS : clear to auscultation bilaterally
ABDOM: soft, nontender, nondistended, + bowel sounds
EXT: no cyanosis, clubbing, or edema
NEUROLOGIC: grossly intact
sepsis POA with Acute hypoxic resp insufficiency --likely due to viral bronchitis--cough could be due to bronchitis, GERD, asthma--blood culture x2 from admission negative, Flu/COVID negative on admission--CT chest and multiple chest x-rays without
acute findings--cultures neg--apprec ID--abx as per ID, hopeful transition to oral tomorrow and continue through 07/29--cont Robitussin with codeine, added protonix/pepcid (daughter says she takes a PPI at home, not on med list)--Lyme neg--off
O2--restarted lasix/Kcl supplementation
Hypokalemia-- Hypokalemia likely related to chronic diuretics; Home medicines include KCl twice daily--Potassium stable--Lasix and potassium initially held; patient now on home dose of Lasix, restart potassium supplements
Persistent AF--Home medications include metoprolol succinate, amiodarone, and reduced dose Eliquis--Was recently on dofetilide before being switched to amiodarone
Chronic HFpEF--Unclear etiology; Home regimen includes beta-diane and Lasix 80 mg twice daily--Appeared hypovolemic upon arrival, home Lasix held and s/p IVF--Home regimen restarted.
Primary hypertension--Home regimen includes metoprolol succinate, and Lasix--No known history of hypertensive systemic disease
Peripheral vascular disease/Chronic venous insufficiency--No known obstructive PAD; does have venous insufficiency--Not currently on statin therapy or antiplatelet agents
Celiac's disease/Collagenous colitis--cont budesonide--Gluten-free diet, monitor bowel status
Constipation--milk and molasses enema
Anxiety--Remains on home alprazolam
Osteoporosis--Home regimen includes Prolia
DVT proph--Home Eliquis
CODE STATUS--Full code
Original Note:
Today's Communication/Plan
-
.
Assessment / Plan
Assessment / Plan
A/P:
# sepsis POA
# ?Acute viral bronchitis (presented with sore throat, fever, significant cough with bronchospasm)
# Acute hypoxic resp insufficiency
blood culture x2 from admission negative, Flu/COVID negative on admission
CT Chest (07/21): No acute findings within the chest. Mild bronchiectasis within both posterior lower lobes with small amount of peripheral atelectasis/scarring.
Noted persistent fever, repeat blood culture(07/23); no growth in 72 hours; Legionella, strep pneumo urinary antigen negative
ID: Transition cefepime to cefdinir 300 mg p.o. twice daily through 07/29, continue p.o. doxycycline 100 mg p.o. twice daily through 07/29
Lyme negative serologies
Saturating well on room air
US chest (07/24): Small right pleural effusion
CXR (07/25): Small right pleural effusion, mild bibasilar atelectasis versus scarring, pneumonia cannot be excluded.
Tessalon Perles as needed
Protonix and famotidine added, nighttime cough could be indicative of reflux (improvement since start of this intervention)
Continue guaifenesin/codeine (improvement since starting this intervention)
Start once daily spiriva inhaler
# Hypokalemia
Potassium 3.7 this AM, repleted yesterday, transitioned to home supplementation dose
Hypokalemia (POA) likely related to chronic diuretics;
Home medicines include KCl twice daily
Lasix and potassium initially held; patient now on home dose of Lasix.
# Persistent AF
Home medications include metoprolol succinate, amiodarone, and reduced dose Eliquis
Was recently on dofetilide before being switched to amiodarone
Heart rate currently within normal range
# Chronic HFpEF
Unclear etiology; Home regimen includes beta-diane and Lasix 80 mg twice daily
Appeared hypovolemic upon arrival, home Lasix held and s/p IVF
Home regimen restarted.
Return patient standing home dose of Lasix, continue to monitor BMP for potassium. Restart patient home dose of potassium supplementation.
# Primary hypertension
Home regimen includes metoprolol succinate, and Lasix
No known history of hypertensive systemic disease
Monitor Blood pressure
# Peripheral vascular disease
# Chronic venous insufficiency
No known obstructive PAD; does have venous insufficiency
Not currently on statin therapy or antiplatelet agents
# Celiac's disease
# Collagenous colitis
Home regimen includes budesonide for collagenous colitis history
Otherwise avoids gluten due to celiac's
Gluten-free diet, monitor bowel status
# Anxiety
Remains on home alprazolam
# Osteoporosis
Home regimen includes Prolia
# Constipation
Patient has a history of microscopic colitis
Notes alternating bouts of constipation and diarrhea
No BM in 4 days, bowel regimen started yesterday, monitor for BM
- MOM enema today, monitor for BM prior to D/C
Diet: Gluten-free
DVT prophylaxis: Home Eliquis
CODE STATUS: Full code
Dispo: [facility]
Anticipated Discharge: Today
Subjective/Interval History
-
Date of Service: July 27, 2024
Patient seen and examined while resting comfortably in bed. Patient states she slept well last night. Still has residual cough but improving. Notes she still has not had a BM.
Abx were transitioned to PO yesterday, Lasix was restarted 2 days ago, and additional potassium supplementation was given yesterday.
Objective Data
-
Labs:
Laboratory Results
07/27/24
06:57
WBC 11.6 H
Hgb 13.0
Hct 39.1
Plt Count 248
Sodium 143
Potassium 3.7
Chloride 103
Carbon Dioxide 32 H
BUN 30 H
Creatinine 1.0
Glucose 107 H
Calcium 10.4 H
Vital Signs:
Vital Signs
Temp Pulse Resp BP Pulse Ox
97.6 F 69 16 119/62 94
07/27/24 07:14 07/27/24 09:36 07/27/24 07:52 07/27/24 09:36 07/27/24 07:52
I&O
07/26/24 07/27/24 07/28/24
06:59 06:59 06:59
Intake Total 560 / 560 240 / 240
Output Total 3700 / 3700
Balance 560 / 560 -3460 / -3460
Review of Systems
-
History Source: Patient
Constitutional: Reports No Symptoms
Respiratory: Reports Cough (improving)
Cardiac: Reports No Symptoms
Abdomen/GI: Reports No Symptoms
Musculoskeletal: Reports No Symptoms
Neuro: Reports No Symptoms
Physical Exam
-
General: No Apparent Distress, Comfortable and Other (elderly)
HEENT: Normocephalic, Atraumatic and Moist Mucous Membranes
Respiratory: Crackles (improving, otherwise clear with nonlabored respirations)
Cardiac: Regular Rhythm and S1/S2
GI: Soft and Nontender
Musculoskeletal: No Clubbing, No Cyanosis and No Edema (improved)
Skin: Warm and Dry
Neuro: Awake, Alert and Oriented
Psych: Calm
Data Reviewed
-
Labs: Labs Reviewed by me and Discussed with Patient
--- NOTE | 2024-07-27 10:27 | W.PN.ID1 ---
Date of Service
Date of Service: July 27, 2024
Today's Communication
- Continue cefdinir 300mg po bid and po doxycycline 100mg po bid through 07/29.
-ID will sign off
Assessment / Plan
# Fevers - resolved
# Acute leukocytosis (received steroid), trending down
# cough - improving daytime, worse at night: ?GERD, ?CHF
# Possible PNA vs. bronchitis
- Admission CXR and Chest CT no acute findings
- Admission bcx' neg to date. UA neg.
- 07/23 Repeat 2V-CXR: small R effusion.
-07/25 CXR new mild bibasilar atelectasis, cannot exclude PNA
- urine Legionella and S. pneumo ag neg
- Continue cefdinir 300mg po bid and po doxycycline 100mg po bid through 07/29.
-ID will sign off
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
Hypertension
Heart failure with preserved EF
atrial fibrillation on amiodarone
Celiac disease
Collagenous colitis
Osteoporosis
Venous insufficiency
Chief Complaint
-: Other (cough)
Subjective / Review of Systems
Cough better.
Vital Signs / Physical Exam
Vital Signs
Vital Signs
Temp Pulse Resp BP Pulse Ox
97.6 F 69 16 119/62 94
07/27/24 07:14 07/27/24 09:36 07/27/24 07:52 07/27/24 09:36 07/27/24 07:52
Physical Exam
Constitutional: No Acute Distress and Comfortable
Pulmonary: Rales (bibase crackles)
Gastrointestinal: Soft, Non Tender and Non Distended
Extremities: Negative Edema
Neurological: AO x 3
Objective Data
Lab Data
Lab Results
07/27/24 06:57
07/27/24 06:57
Estimated Creat Clear 31 ml/min 07/27/24 06:57
Lactic Acid 2.6 mmol/L (0.7-2.0) H 07/23/24 06:20
Total Bilirubin 0.6 mg/dl (0.2-1.3) 07/22/24 08:11
AST 24 U/L (14-36) 07/22/24 08:11
ALT 17 U/L (0-35) 07/22/24 08:11
Alkaline Phosphatase 43 U/L (38-126) 07/22/24 08:11
Most recent labs reviewed.
Micro Results:
07/23/24 12:51 Blood Culture - Preliminary
Blood/Venous No Growth in 72 hours- Final report to follow
07/23/24 11:38 Blood Culture - Preliminary
Blood/Venous No Growth in 72 hours- Final report to follow
07/21/24 09:09 Blood Culture - Final
Blood/Venous No Growth - Final Report
07/21/24 08:37 Blood Culture - Final
Blood/Venous No Growth - Final Report
07/24/24 21:11 Legionella Urinary Antigen - Final
Urine Negative for Legionella pneumophila Serogroup 1 antigen.
A negative result does not rule out the possiblity of
Legionella infection due to other serogroups or species of
Legionella. Clinical correlation is recommended.
Streptococcus pneumoniae Antigen (M - Final
Negative for Streptococcus pneumoniae antigen.
A negative result does not exclude infection with
Streptococcus pneumoniae. Clinical correlation is
recommended.
07/21/24 08:37 Influenza Types A & B (HEATH) - Final
Nasal Swab Negative for Influenza A & B, NAAT
Negative results must be combined with clinical observations
and patient history.
Nucleic Acid Amplification test (NAAT)performed on the
[employer] platform.
07/25/24 CXR: Small right pleural effusion. Stable. Mild bibasilar atelectasis versus scarring. Developing pneumonia cannot be excluded. New
07/23/24 CXR: Small bilateral pleural effusions, right larger than left. New.
07/21/[address]: No acute findings within the chest. Mild bronchiectasis within both posterior lower lobes with small amount of peripheral atelectasis/scarring.
07/21/24 CXR: No radiographic evidence of acute cardiopulmonary abnormality.
07/20/24 CXR: No acute pulmonary abnormality appreciated. Minimal linear scarring at the left lung base, unchanged.
07/20/24 Abd US: No evidence of cholelithiasis, acute cholecystitis, or biliary ductal dilation. Pancreas was somewhat suboptimally visualized due to overlying bowel gas. Small cystic lesions were demonstrated, measuring up to 2.2 cm in diameter.
Pancreatic cystic lesions were better characterized on prior MRI abdomen dated 06/23/2023.
--- NOTE | 2024-07-27 14:44 | CM ---
Patient seen at bedside with physicians. Patient present. Patient given IMM and signed form placed on chart. CM provided information to patient to call [facility] for wheelchair van cost and patient provided credit card
number to [employer]. Phone for report [phone]/fax [phone]. CM updated [facility] time of transport. CM will continue to follow for discharge planning needs.
Plan; [facility] today.
[2024-07-27 15:27] VITALS: BP 138/82
[2024-07-27 16:12] VITALS: BP 138/82
--- NOTE | 2024-07-27 17:51 | W.DCSUMMARY ---
Addendum entered and electronically signed by Rosalinda Cavazos MD 07/27/24 18:53:
Read, reviewed, and agree. See same day progress note for additional details. Time spent coordinating care, DC planning, review of DC plan of care with resident, transition of care, review of records in EMR, med rec, consults, notes, d/w
consultants, nursing, family, and CM = 35 minutes
Original Note:
Discharge Summary
Discharge Data
Date of Admission: 07/21/24
Date of Discharge: 07/27/24
-
Pending Results: No
Hospital Course
Mrs. Alexander is a 84-year-old female with a past medical history of persistent atrial fibrillation, congestive heart failure, hypertension who was originally admitted here from 07/08/2024 to 07/14/2024. She presented to the emergency department again on
07/20/2024 with lightheadedness, chills, and cough. She stated that the cough been going on for a few days, however she was not short of breath. During this illness, patient had an episode of transient chest pain. During this ED visit, patient was
being worked up for cardiac chest pain, COVID and flu, and while waiting for her workup she had a brief episode of tachycardia with a heart rate of up to 190. It appeared to be rapid A-fib with marked diffuse ST depressions. The patient
spontaneously converted to normal sinus rhythm. Her potassium was mildly low at 3.1 and she was repleted. The field support engineer at this visit recommended the patient's stop Tikosyn and start amiodarone while decreasing her dose of metoprolol.
Additionally, antibiotics were recommended for cough so she was started on amoxicillin. Later that night, she went home and felt wiped out and fatigued. She continued to cough throughout the night and woke up around 3 AM with chills. This
prompted her to return to the emergency department on 07/21/2024.
ED COURSE
In the emergency department, patient appeared fatigued with very dry mouth. She had a mildly rhonchorous left base but no wheezing, tachypnea or rales. Chest x-ray and CT of the chest were negative for pneumonia and her white blood cell count was
normal. Flu and COVID testing were negative and her UA did not reveal any abnormalities. Despite this the patient was febrile (102) and her BPs remain soft and thus, she was admitted that evening.
HOSPITAL COURSE
As workup continued, it was thought that her blood pressures were likely from hypovolemia from diuresis. Thus, her home dose of Lasix was initially held. She was found to be hypokalemic likely, again, secondary to diuresis. Her potassium was
repleted. The patient continued to receive work up and symptomatic treatment for her upper respiratory illness. As all workup was negative, the illness was thought to have stemmed from an acute viral bronchitis. Nonetheless, chest imaging started to
show infiltrates that could have been secondary fluid overload in the setting of CHF or a blossoming pneumonia, so infectious disease was brought on board and antibiotics were started with Cefepime and Doxycycline. As the patient's Lasix had been on
hold, the patient started to show some signs of fluid overload again. Lasix was ultimately restarted, and potassium was followed and repleted as needed. Symptomatic treatment for cough was tailored throughout the course of her stay. By the day of
discharge, the patient's upper respiratory illness had significantly improved, she did not show any signs of fluid overload, potassium stable, and the patient did not experience any symptoms of atrial fibrillation.
DISCHARGE INSTRUCTIONS
Patient was discharged to [facility] for continued physical and respiratory rehabilitation
Continue with cefdinir 300 mg p.o. twice daily through 07/29/2024
Continue with doxycycline 100 mg p.o. twice daily through 07/29/2024
Repeat chest x-ray in 4 to 6 weeks to check for resolution of possible pneumonia
Continue symptomatic treatment with codeine�guaifenesin, Spiriva inhaler, Mucinex as needed
Repeat basic metabolic panel at primary care follow-up
Continue amiodarone and follow-up with primary care provider (consider cardiology follow-up)
Discharge Plan
-
Patient Disposition: Prison/SNF
Discharge Diagnosis/Procedures: Acute Viral Bronchitis
Hypokalemia Secondary to Medication Side Effect
Persistent Atrial Fibrillation
Chronic Heart Failure with Preserved Ejection Fraction
Constipation
Condition: Fair
Diet: As tolerated, 2 Gram Sodium and Other diet
Additional Diets: Gluten Free
Activity: As tolerated
Blood Work: BMP
Referrals:
Fabio Hawkins MD [Family Provider, Internal Medicine]
Prescriptions:
New
doxycycline hyclate 100 mg Capsule
100 mg PO BID Qty: 5 0RF
amiodarone 200 mg Tablet
400 mg PO BID Qty: 30 0RF
cefdinir 300 mg Capsule
300 mg PO Q12 Qty: 5 0RF
Spiriva Respimat 2.5 mcg/actuation Mist
2 puff inhalation R DAILY Qty: 1 0RF
codeine-guaifenesin 10-100 mg/5 mL Liquid
10 ml PO Q4HPRN PRN (Reason: cough) Qty: 1 0RF
guaifenesin 600 mg Tablet Extended Release 12hr
600 mg PO Q12 Qty: 30 0RF
Continued
multivitamin with folic acid [Tab-A-Bertin] 1 TABLET tablet
1 tab PO DAILY
budesonide 3 MG capsule,delayed,extend.release
6 mg PO DAILY
Eliquis 2.5 MG tablet
2.5 mg PO BID
furosemide 80 mg Tablet
80 mg PO BID
alprazolam 0.25 mg Tablet
0.25 mg PO HS
Citrucel 500 mg Tablet
1,000 mg PO QPM
Refresh Classic (PF) 1.4-0.6 % Dropperette
1 drp BOTH EYES BID
Prolia 60 mg/mL Syringe
60 mg SC [id number]
metoprolol succinate 50 mg tablet extended release 24 hr
50 mg PO BID
potassium chloride 20 mEq tablet,ER particles/crystals
20 meq PO BID
polyethylene glycol 3350 [Miralax] 17 gram Powder In Packet
17 g PO DAILYPRN PRN (Reason: constipation)
Discontinued
amoxicillin 500 mg tablet
1,000 mg PO TID Qty: 21 0RF
Rx Instructions:
start 07/20/24
amiodarone 200 mg Tablet
400 mg PO DIRECTED
Rx Instructions:
starting 07/20/24 take 400mg bid for 14 days then 200mg daily for 30 days
Discharge Orders:
Discharge Patient (As Directed); Ordered 07/27/24
Ordered By: Nikolas Rain
Discharge Date and Time
Discharge Date/Time: 07/27/24 16:48
Print Language: ARMENIAN
== END 2024-07-27 16:48 | DRG 871 ==
LOC: 4 EAST ACU 13:19
PROVIDERS: Internal Medicine; Physician Assistant; ADMITTING PHYSICIAN Hospitalist; ATTENDING PHYSICIAN Internal Medicine; CONSULT PHYSICIAN Internal Medicine Infectious Disease; EMERGENCY PHYSICIAN Student in an Organized Health Care Education/Training Program; FAMILY PHYSICIAN Internal Medicine
DX: A41.9 Sepsis, unspecified organism (principal); I50.33 Acute on chronic diastolic (congestive) heart failure; I48.19 Other persistent atrial fibrillation; Z11.52 Encounter for screening for COVID-19; J06.9 Acute upper respiratory infection, unspecified; J20.8 Acute bronchitis due to other specified organisms; E87.6 Hypokalemia; T50.2X5A Adverse effect of carbonic-anhydrase inhibitors, benzothiadiazides and other diuretics, initial encounter; Z79.01 Long term (current) use of anticoagulants; I11.0 Hypertensive heart disease with heart failure; M81.0 Age-related osteoporosis without current pathological fracture; K90.0 Celiac disease; F41.9 Anxiety disorder, unspecified; K52.831 Collagenous colitis
CPT/HCPCS: 71046; 71250; 76604; 80048; 80053; 81003; 81015; 82550; 83605; 83735; 83880; 85025; 85027; 86308; 86618; 87040; 87449; 87502; 87811; 87899; 92610; 93005; 94640; 96360; 96361; 97116; 97162; 97166; 97530; 97535; 99285

== ENCOUNTER → 2024-08-17 12:20 | Outpatient (REF) | payer OTHER, SELFPAY ==
[2024-08-17 15:09] LABS: ALT (SGPT) 37 U/L (0-35); AST (SGOT) 25 U/L (14-36); Albumin 3.9 g/dl (3.5-5.0); Alkaline Phosphatase 59 U/L (38-126); Blood Urea Nitrogen 14 mg/dl (7-17); Calcium 8.7 mg/dl (8.4-10.2); Carbon Dioxide 33 mmol/L (22-30); Chloride 101 mmol/L (98-107); Glucose 80 mg/dl (70-99); Potassium 3.6 mmol/L (3.5-5.1); Sodium 141 mmol/L (135-145); Total Bilirubin 0.4 mg/dl (0.2-1.3); Total Protein 6.6 g/dl (6.3-8.2); eGFR 54.87
== END ==
LOC: REG 12:20
PROVIDERS: ATTENDING PHYSICIAN Internal Medicine Rheumatology; FAMILY PHYSICIAN Internal Medicine
DX: M81.0 Age-related osteoporosis without current pathological fracture (principal)
CPT/HCPCS: 36415; 80053; 82306

== ENCOUNTER → 2024-08-30 11:48 | Outpatient (REF) | payer OTHER, SELFPAY ==
[2024-08-30 13:12] LABS: ALT (SGPT) 27 U/L (0-35); AST (SGOT) 24 U/L (14-36); Albumin 3.7 g/dl (3.5-5.0); Alkaline Phosphatase 44 U/L (38-126); Blood Urea Nitrogen 18 mg/dl (7-17); Calcium 9.2 mg/dl (8.4-10.2); Carbon Dioxide 35 mmol/L (22-30); Chloride 102 mmol/L (98-107); Glucose 99 mg/dl (70-99); Potassium 4.3 mmol/L (3.5-5.1); Sodium 140 mmol/L (135-145); Total Protein 6.1 g/dl (6.3-8.2); eGFR 44.08
== END ==
LOC: REG 11:48
PROVIDERS: ATTENDING PHYSICIAN Internal Medicine Cardiovascular Disease; FAMILY PHYSICIAN Internal Medicine
DX: I50.32 Chronic diastolic (congestive) heart failure (principal)
CPT/HCPCS: 36415; 80053; 84100

== ENCOUNTER → 2024-09-05 14:02 | Outpatient (REF) | payer OTHER, SELFPAY | LOC: RCS 14:02 | PROVIDERS: ATTENDING PHYSICIAN Nurse Practitioner; FAMILY PHYSICIAN Internal Medicine | DX: I50.32 Chronic diastolic (congestive) heart failure (principal) | CPT/HCPCS: 93306 ==

== ENCOUNTER → 2024-09-25 16:35 | Outpatient (REF) | payer OTHER, SELFPAY | LOC: RAD 16:35 | PROVIDERS: ATTENDING PHYSICIAN Internal Medicine; REFERRING PHYSICIAN Internal Medicine Cardiovascular Disease | DX: R52 Pain, unspecified (principal) | CPT/HCPCS: 72110 ==

== ENCOUNTER → 2024-10-31 14:15 | Outpatient (REF) | payer OTHER, SELFPAY ==
[2024-10-31 15:13] LABS: Urine Character Clear (Clear)
[2024-10-31 15:23] LABS: Urine Squamous Cell 0-2 /LPF (Few)
[2024-10-31 15:26] LABS: Urine Red Blood Cell 0-2 /HPF (0-2)
[2024-10-31 17:33] LABS: ALT (SGPT) 27 U/L (0-35); AST (SGOT) 34 U/L (14-36); Albumin 4.1 g/dl (3.5-5.0); Alkaline Phosphatase 84 U/L (38-126); Blood Urea Nitrogen 19 mg/dl (7-17); Calcium 9.2 mg/dl (8.4-10.2); Carbon Dioxide 30 mmol/L (22-30); Chloride 99 mmol/L (98-107); Glucose 119 mg/dl (70-99); Potassium 4.5 mmol/L (3.5-5.1); Sodium 137 mmol/L (135-145); Total Protein 6.8 g/dl (6.3-8.2); eGFR 48.94
== END ==
LOC: REG 14:15
PROVIDERS: ATTENDING PHYSICIAN Internal Medicine Cardiovascular Disease; FAMILY PHYSICIAN Internal Medicine; OTHER PHYSICIAN Obstetrics & Gynecology Gynecology
DX: I50.32 Chronic diastolic (congestive) heart failure (principal); I48.0 Paroxysmal atrial fibrillation; R39.9 Unspecified symptoms and signs involving the genitourinary system
CPT/HCPCS: 36415; 80053; 81003; 81015; 84443; 87077; 87086; 87186

== ENCOUNTER 2024-11-04 17:21 | Emergency (ER) | payer OTHER, SELFPAY ==
[2024-11-04 17:38] VITALS: BP 169/84
[2024-11-04 19:19] LABS: Urine Character Slightly Cloudy (Clear)
[2024-11-04 19:52] LABS: Urine Red Blood Cell 30-40 /HPF (0-2); Urine Squamous Cell 0-2 /LPF (Few); Urine White Cell 50-60 /HPF (0-5)
[2024-11-04 20:16] VITALS: BMI 21.6
[2024-11-04] MEDS: KEFLEX 500 MG PO (21:06)
[2024-11-04 21:23] VITALS: BP 160/80
--- NOTE | 2024-11-04 23:48 | ED.GENMED ---
History of Present Illness
General
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
Source: patient
Exam Limitations: none
Time Seen by Provider: 11/04/24 19:32
Nursing documentation reviewed up to this point in time: agreed with
History of Present Illness
History of Present Illness:
Patient to ED wt complaint of yellow vaginal discharge. States she was started on cipro on 10/31 fpr UTI/ She states she took 2 doses and then stopped because med madeher feel funny. Denies fever/chills, n/v/d. Brought to ED by aletha pineda.
Past History
Past History
ED Past Medical History: Arrthythmia (Atrial fibrillation), CHF, HTN, Psychiatric (Anxiety) and Other (Collagenous colitis, constipation, osteopenia)
ED Past Surgical History: Cardiac (Cardioversion), Gynecological (D and C), Orthopedic (Bilateral carpal tunnel) and Tonsilectomy
Social History
Tobacco: Non-smoker
Alcohol: None
Personal:
Living: with family
Family History
Family History: Other (Noncontributory)
Review of Systems
Review of Systems
Allergies reviewed?: Yes
All Other Systems: ROS reviewed and negative except as documented in HPI and ROS
Constitutional: Reports no symptoms
EENT: Reports no symptoms
Respiratory: Reports no symptoms
Cardiac: Reports no symptoms
ABD/GI: Reports no symptoms
: Reports other (yellow vaginal discharge)
Musculoskeletal: Reports no symptoms
Skin: Reports no symptoms
Neurological: Reports no symptoms
Psychiatric: Reports no symptoms
Phy Exam
General Physical Exam
General Presentation: well appearing and no apparent distress
General age: appears stated age
General Skin: warm and dry
General Habitus: normal
General Mental: alert
Cardiovascular Exam
Cardiovascular Exam: regular rate/rhythm and no edema
Pulmonary Exam
Pulmonary Exam: lungs clear and no respiratory distress
Gastrointestinal Exam
Gastrointestinal Exam: normal bowel sounds, non tender, soft, no organomegaly, no pulsatile mass, non distended and no cva tenderness
Genitourinary Exam Female
Exam Female: vaginal discharge (yellow vaginal discharge)
Vaginal Bleeding: none
Vaginal Discharge: watery
Musculoskeletal Exam
Musculoskeletal Exam: full ROM and neuro vasc intact
Skin Exam
Skin Exam: normal color, warm/dry and no rash
Psychiatric Exam
Psychiatric Exam: normal mood/affect
Course
Orders/Labs/Results
Orders:
Orders
11/04/24 19:07
Urinalysis Urgent
Date Specimen was Collected: 11/04/24
Time Specimen was Collected: 17:43
Urine Microscopic Urgent
Date Specimen was Collected: 11/04/24
Time Specimen was Collected: 17:43
11/04/24 20:53
Cephalexin Monohydrate [Keflex] 500 mg PO NOW STA
11/04/24 21:14
Genital Culture Urgent
MOON Source: Vagina
Specimen Description:
Date Specimen was Collected: 11/04/24
Time Specimen was Collected: 21:13
Abnormal Lab Results
11/04/24
19:07
Urine Occult Blood 2+ A
(Negative)
Ur Leukocyte Esterase 3+ A
(Negative)
Urine RBC 30-40 A /HPF
(0-2)
Urine WBC 50-60 A /HPF
(0-5)
Urine Bacteria Moderate A
(Negative)
Urine Albumin 2+ A
(Neg - Trace)
Vital Signs
Initial and Last Documented VS:
Initial Vital Signs
Temp Pulse Resp BP Pulse Ox
98.4 F 65 18 169/84 94
11/04/24 17:38 11/04/24 17:38 11/04/24 17:38 11/04/24 17:38 11/04/24 17:38
Last Documented Vital Signs
Temp Pulse Resp BP Pulse Ox
98.4 F 66 14 160/80 97
11/04/24 17:38 11/04/24 21:23 11/04/24 21:23 11/04/24 21:23 11/04/24 23:48
*Radiology
Radiology exam reviewed: radiology read reviewed
*Pulse Oximetry
SaO2: 97
Oxygen Mode of Delivery: Room air
Patient hypoxic: no
*Critical Care Note
Total Time (30-74mins, 75-104mins- exclusive of procedures): Not Applicable
Update Note
Update Note:
Patient to ED wtih rport of yellow vaginal discharge 'for many weeks'. No abdominal pain, no pain with urination. Culture of vaginal discharge obtained. Mild erythema to labia, no pain. UA concerning for UTI. Placed on keflex pending culture
results. Monostat vagina suppository ordered for probable vaginal yeas infection. VSS, she remains afebrile. SHe is discharged home and will follow up with PCP/PRECISION FILER HAND. Given instructions on s/s to return to ED and she is areeable to plan.
ED Attending Note
-
Portions of this chart may have been created with voice recognition software.� Occasional wrong word or��sound alike� substitutions may have occurred due to the inherent limitations of voice recognition software.
Discharge Plan
Departure
Patient Disposition: Home (Routine Discharge)
Date of Disposition: 11/04/24
Time of Disposition: 20:58
Patient with high blood pressure during this ER visit?: No
Condition: Good
Covid-19: Not Applicable
Discharge Problem:
UTI (urinary tract infection)
Instructions: Urinary tract infections in adults
Prescriptions:
New
cephalexin 500 mg capsule
500 mg PO BID 7 Days Qty: 14 0RF
Miconazole-3 200 mg suppository
200 mg vaginal HS 3 Days Qty: 3 0RF
No Action
multivitamin with folic acid [Tab-A-Bertin] 1 TABLET tablet
1 tab PO DAILY
budesonide 3 MG capsule,delayed,extend.release
6 mg PO DAILY
Eliquis 2.5 MG tablet
2.5 mg PO BID
furosemide 80 mg Tablet
80 mg PO BID
alprazolam 0.25 mg Tablet
0.25 mg PO HS
Citrucel 500 mg Tablet
1,000 mg PO QPM
Refresh Classic (PF) 1.4-0.6 % Dropperette
1 drp BOTH EYES BID
Prolia 60 mg/mL Syringe
60 mg SC [id number]
metoprolol succinate 50 mg tablet extended release 24 hr
50 mg PO BID
potassium chloride 20 mEq tablet,ER particles/crystals
20 meq PO BID
polyethylene glycol 3350 [Miralax] 17 gram Powder In Packet
17 g PO DAILYPRN PRN (Reason: constipation)
doxycycline hyclate 100 mg Capsule
100 mg PO BID Qty: 5 0RF
amiodarone 200 mg Tablet
400 mg PO BID Qty: 30 0RF
cefdinir 300 mg Capsule
300 mg PO Q12 Qty: 5 0RF
Spiriva Respimat 2.5 mcg/actuation Mist
2 puff inhalation R DAILY Qty: 1 0RF
codeine-guaifenesin 10-100 mg/5 mL Liquid
10 ml PO Q4HPRN PRN (Reason: cough) Qty: 1 0RF
guaifenesin 600 mg Tablet Extended Release 12hr
600 mg PO Q12 Qty: 30 0RF
Referrals:
Fabio Hawkins MD [Family Provider, Internal Medicine]
Interventions
Interventions:
*Risk Screen - Suicide Last Done: 11/04/24 17:43
*Neglect/Abuse Screening Last Done: 11/04/24 17:43
*Nursing Disposition Last Done: 11/04/24 21:24
ED-Female Genitourinary Assessment Last Done: 11/04/24 20:09
Discharge Date and Time
Discharge Date/Time: 11/04/24 21:28
Print Language: SURINAMESE
== END 2024-11-04 21:28 | disposition home or self-care (01) ==
LOC: EMR 17:21
PROVIDERS: EMERGENCY PHYSICIAN Emergency Medicine; FAMILY PHYSICIAN Internal Medicine
DX: N39.0 Urinary tract infection, site not specified (principal); I48.91 Unspecified atrial fibrillation; I11.0 Hypertensive heart disease with heart failure; I50.9 Heart failure, unspecified; F41.9 Anxiety disorder, unspecified; M85.80 Other specified disorders of bone density and structure, unspecified site
CPT/HCPCS: 99283; 81003; 81015; 87070

== ENCOUNTER → 2025-01-04 11:28 | Outpatient (REF) | payer OTHER, SELFPAY ==
[2025-01-04 13:34] LABS: ALT (SGPT) 29 U/L (0-35); AST (SGOT) 27 U/L (14-36); Albumin 4.9 g/dl (3.5-5.0); Alkaline Phosphatase 64 U/L (38-126); Blood Urea Nitrogen 60 mg/dl (7-17); Calcium 10.4 mg/dl (8.4-10.2); Chloride 85 mmol/L (98-107); Glucose 89 mg/dl (70-99); Potassium 3.1 mmol/L (3.5-5.1); Sodium 137 mmol/L (135-145); Total Protein 8.0 g/dl (6.3-8.2); eGFR 25.40
[2025-01-04 13:51] LABS: Carbon Dioxide 39 mmol/L (22-30)
== END ==
LOC: REG 11:28
PROVIDERS: ATTENDING PHYSICIAN Internal Medicine Cardiovascular Disease; FAMILY PHYSICIAN Internal Medicine
DX: I48.0 Paroxysmal atrial fibrillation (principal); Z79.899 Other long term (current) drug therapy; I50.32 Chronic diastolic (congestive) heart failure
CPT/HCPCS: 36415; 80053; 83880; 84439; 84443

== ENCOUNTER → 2025-01-22 13:27 | Outpatient (REF) | payer OTHER, SELFPAY ==
[2025-01-22 14:24] LABS: ALT (SGPT) 31 U/L (0-35); AST (SGOT) 23 U/L (14-36); Albumin 4.2 g/dl (3.5-5.0); Alkaline Phosphatase 52 U/L (38-126); Blood Urea Nitrogen 21 mg/dl (7-17); Calcium 9.4 mg/dl (8.4-10.2); Carbon Dioxide 32 mmol/L (22-30); Chloride 100 mmol/L (98-107); Glucose 107 mg/dl (70-99); Potassium 4.7 mmol/L (3.5-5.1); Sodium 137 mmol/L (135-145); Total Protein 6.7 g/dl (6.3-8.2); eGFR 48.94
== END ==
LOC: REG 13:27
PROVIDERS: ATTENDING PHYSICIAN Internal Medicine Cardiovascular Disease
DX: I48.0 Paroxysmal atrial fibrillation (principal); Z79.899 Other long term (current) drug therapy; I50.32 Chronic diastolic (congestive) heart failure
CPT/HCPCS: 36415; 80053; 83880; 84443

== ENCOUNTER → 2025-01-29 12:54 | Outpatient (REF) | payer OTHER, SELFPAY ==
[2025-01-29 14:26] LABS: Blood Urea Nitrogen 22 mg/dl (7-17); Calcium 9.9 mg/dl (8.4-10.2); Carbon Dioxide 33 mmol/L (22-30); Chloride 99 mmol/L (98-107); Glucose 100 mg/dl (70-99); Potassium 4.8 mmol/L (3.5-5.1); Sodium 136 mmol/L (135-145); eGFR 44.08
== END ==
LOC: REG 12:54
PROVIDERS: ATTENDING PHYSICIAN Internal Medicine Cardiovascular Disease; FAMILY PHYSICIAN Internal Medicine
DX: R63.5 Abnormal weight gain (principal)
CPT/HCPCS: 36415; 80048